=== PATIENT | female | born 1970 | race Caucasian/White ===

== ENCOUNTER → 2023-03-25 12:36 | Outpatient (REF) | payer BC, SELFPAY ==
[2023-03-25 14:05] LABS: APTT 26.9 Sec (23.4-35.0); PT 13.4 Sec (11.4-14.6)
== END ==
LOC: SDSPAT 12:36
PROVIDERS: ATTENDING PHYSICIAN Internal Medicine Critical Care Medicine; OTHER PHYSICIAN Internal Medicine Hematology & Oncology
DX: R91.8 Other nonspecific abnormal finding of lung field (principal)
CPT/HCPCS: 36415; 85610; 85730; 93005

== ENCOUNTER → 2023-04-16 09:35 | Outpatient (REF) | payer BC, SELFPAY ==
[2023-04-16 09:59] VITALS: BP 144/94; BP_SYST 88
[2023-04-16 11:34] VITALS: BP 124/80; BP_SYST 94
[2023-04-16 12:03] VITALS: BP 129/78
== END ==
LOC: RADI 09:35
PROVIDERS: ATTENDING PHYSICIAN Internal Medicine Hematology & Oncology
DX: C50.412 Malignant neoplasm of upper-outer quadrant of left female breast (principal); Z85.3 Personal history of malignant neoplasm of breast
CPT/HCPCS: 88305; 32408; 88333; 88341; 88342; 88360; 99152

== ENCOUNTER 2023-05-16 18:44 | Inpatient (IN) | payer BC, SELFPAY ==
[2023-05-16 12:58] VITALS: BP 118/73
--- NOTE | 2023-05-16 13:38 | ED.GENMED ---
History of Present Illness
General
Chief Complaint: Weakness
Source: patient
Exam Limitations: none
Time Seen by Provider: 05/16/23 13:08
Travel History
Have you had any contact with someone who has COVID-19?: No
Do you have any symptoms of coronavirus? Fever > 100 degrees, chills, cough, shortness of breath, sore throat, loss of taste or smell, muscle aches, or headache?: No
History of Present Illness
History of Present Illness:
53-year-old female with history of breast cancer presents complaining of generalized fatigue that new redness to the left upper chest and pain to the left scapular area. She started new chemotherapy medication 2 weeks ago. Cancer was first
diagnosed several years ago. She had double mastectomy and subsequent implant placement. This was also years ago. Recent discovery of cancer came back on her chest wall. She had a biopsy performed about 2 months ago. No nausea vomiting. She
notes a low-grade fever she notes a slight cough.
Phy Exam
Physical Exam
Physical Exam:
General: Well-appearing female no acute respiratory distress
HEENT: Normocephalic atraumatic heart: Regular rate and rhythm no murmurs
Lungs: Clear to auscultation bilaterally no wheezing
Skin: Erythema and warmth noted to the left upper chest with underlying swelling. This overlies the implant on the left side as well
Extremities: No cyanosis
Course
Orders/Labs/Results
Orders:
Orders
05/16/23 13:25
CT Chest Pe Study Urgent
Comment:
Reason For Exam: left chest/scapular pain, history of CA
05/16/23 13:46
COVID-19 Antigen Urgent
Source: Nasal Swab
Complete Blood Count/With Diff Urgent
Comprehensive Metabolic Panel Urgent
Influenza A+B Rapid Molecular Urgent
OLGA Source: Nasal Swab
Specimen Description:
05/16/23 15:59
Vancomycin [Vancocin] 1,500 mg 0.9% Sodium Chloride [Nss] 20 ml 0.9% Sodium Chloride 250 ml [Nss] 250 ml IV NOW
Abnormal Lab Results
05/16/23
13:46
WBC 13.4 H 10^3/uL
(4.8-10.8)
RBC 3.67 L 10^6/uL
(4.20-5.40)
Hgb 10.6 L g/dL
(12.0-16.0)
Hct 31.3 L %
(37.0-47.0)
RDW 15.7 H %
(11.5-14.5)
Abs Immat Gran (auto) 0.8 H 10^3/uL
(0-0.05)
Absolute Neuts (auto) 9.8 H 10^3/uL
(1.4-6.5)
Absolute Monos (auto) 1.4 H 10^3/uL
(0.1-0.6)
Immature Gran % 6.3 H %
(0-0.5)
Lymphocytes % 8.9 L %
(20.5-51.1)
Monocytes % 10.5 H %
(1.7-9.3)
Sodium 130 L mmol/L
(135-145)
Creatinine 0.4 L mg/dL
(0.6-1.0)
Glucose 108 H mg/dl
(70-99)
05/16/23 13:46
05/16/23 13:46
Vital Signs
Initial and Last Documented VS:
Initial Vital Signs
Temp Pulse Resp BP Pulse Ox
100.1 F 116 16 118/73 99
05/16/23 12:58 05/16/23 12:58 05/16/23 12:58 05/16/23 12:58 05/16/23 12:58
Last Documented Vital Signs
Temp Pulse Resp BP Pulse Ox
100.1 F 103 15 118/73 97
05/16/23 12:58 05/16/23 14:15 05/16/23 14:15 05/16/23 12:58 05/16/23 14:15
MDM/Problems Addressed
Differential Diagnosis Includes:
Generalized fatigue redness to the chest wall. She has low-grade fever with cough. Check for COVID and flu. Concern for possible cellulitis versus underlying abscess versus implant infection. PE also on differential given radiation of pain to
scapula. Will check for COVID and flu. Labs pending. CT PE study pending
*Critical Care Note
Total Time (30-74mins, 75-104mins- exclusive of procedures): Not Applicable
Update Note
Update Note:
White blood cell count 13.4. CT scan of the chest was ordered which demonstrates the following
IMPRESSION:
1. No evidence of pulmonary embolism.
2. Interval increase in size of bilateral pulmonary nodules suspicious for progression of metastatic disease.
3. Continued interval increase in size of confluent soft tissue along the medial left chest wall adjacent to the left breast implant along with increased adjacent subcutaneous inflammation and overlying skin thickening. Differential includes
mastitis, inflammatory breast cancer, metastatic disease and breast implant associated anaplastic large cell lymphoma.
Given fever and elevated white blood cell count we will treat for infectious source. Discussed these findings with the patient's oncologist, Dr. Marx. She was in agreement with IV antibiotics. Will contact hospitalist further evaluation
ED Attending Note
-
Portions of this chart may have been created with voice recognition software.� Occasional wrong word or��sound alike� substitutions may have occurred due to the inherent limitations of voice recognition software.
Discharge Plan
Departure
Patient Disposition: Admit
Date of Disposition: 05/16/23
Time of Disposition: 16:08
Admit to: Med/Surg
Presentation/result/management discussed w/ accepting MD/DO: Hospitalist
Discharge Problem:
Cellulitis
Prescriptions:
No Action
calcium 600 mg Capsule
600 mg PO DAILY
duloxetine [Cymbalta] 60 mg Capsule,Delayed Release(Dr/Ec)
30 mg PO 1300
cholecalciferol (vitamin D3) [Vitamin D3] 25 mcg (1,000 unit) Tablet
25 mcg PO DAILY
rizatriptan 5 mg Tablet,Disintegrating
5 mg PO ONCE
pregabalin [Lyrica] 50 mg Capsule
50 mg PO BID
Referrals:
NOEMI PETERSON MD [Family Provider] -
Interventions
Interventions:
*Risk Screen - Suicide Last Done: 05/16/23 12:58
*General Assessment Last Done: 05/16/23 12:58
*Neglect/Abuse Screening Last Done: 05/16/23 12:58
ED- Fall Risk Assessment Last Done: 05/16/23 14:09
ED- Cardiac Assessment Last Done: 05/16/23 14:09
ED- Neurological Assessment Last Done: 05/16/23 14:09
ED- Pulmonary Assessment Last Done: 05/16/23 14:09
[2023-05-16 14:01] LABS: % Basophils 0.7 % (0-2); % Eosinophils 0.6 % (0-6); % Immature Granulocytes 6.3 % (0-0.5); % Lymphocytes 8.9 % (20.5-51.1); % Monocytes 10.5 % (1.7-9.3); Absolute Basophils 0.1 10^3/uL (0-0.2); Absolute Eosinophils 0.1 10^3/uL (0-0.7); Absolute Immature Granulocytes 0.8 10^3/uL (0-0.05); Absolute Lymphocytes 1.2 10^3/uL (1.2-3.4); Absolute Monocytes 1.4 10^3/uL (0.1-0.6); Absolute Neutrophils 9.8 10^3/uL (1.4-6.5); Hematocrit 31.3 % (37.0-47.0); Hemoglobin 10.6 g/dL (12.0-16.0); Mean Corp Hgb Conc. 33.9 g/dL (33.0-37.0); Mean Corpuscular Hgb 28.9 pg (27.0-31.0); Mean Corpuscular Volume 85.3 fL (81.0-99.0); Mean Platelet Volume 9.9 fL (7.4-10.4); Nucleated Red Blood Cells % 0 %; Platelet Count 154 10^3/uL (130-400); Red Blood Cell Count 3.67 10^6/uL (4.20-5.40); Red Cell Dist. Width 15.7 % (11.5-14.5); White Blood Cell Count 13.4 10^3/uL (4.8-10.8)
[2023-05-16 14:09] VITALS: BMI 29.1
[2023-05-16 14:14] LABS: COVID-19 Antigen Negative (Negative)
[2023-05-16 14:18] LABS: ALT (SGPT) 13 U/L (0-35); AST (SGOT) 19 U/L (14-36); Alkaline Phosphatase 113 U/L (38-126); Blood Urea Nitrogen 7 mg/dl (7-17); Calcium 8.9 mg/dl (8.4-10.2); Carbon Dioxide 26 mmol/L (22-30); Chloride 100 mmol/L (98-107); Estimated Creatinine Clearance 114 ml/min; Glucose 108 mg/dl (70-99); Potassium 3.8 mmol/L (3.5-5.1); Sodium 130 mmol/L (135-145); Total Bilirubin 0.5 mg/dl (0.2-1.3); Total Protein 6.7 g/dl (6.3-8.2); eGFR > 60.00
[2023-05-16 16:28] VITALS: BP 114/69
[2023-05-16] MEDS: VANCOCIN 540 MG IV (16:48)
--- NOTE | 2023-05-16 17:38 | HPS.HSE ---
Family Physician
-
Family Physician: NOEMI PETERSON MD
Chief Complaint
-
chest wall swelling and redness
History of Present Illness
53-year-old female past medical history of triple negative breast cancer left breast diagnosed in 2014 with metastases to hip and lung status post double mastectomy and subsequent implant placement, recurrence in 2018 with subsequent neuropathy and
weakness of the left upper extremity, recent lung nodule biopsy 2 months ago presenting with redness and swelling of the left upper chest wall and scapular area over the past day. Did have some chills. Denies any fever.
She states that 6 months ago she was found to have involvement of the cancer within the chest wall. At that time she had CT scan of the chest which showed increasing pulmonary nodules she subsequently had lung biopsy a month ago which was
inconclusive for metastatic disease. She also had MRI of the left upper extremity which did not find any etiology for the left upper extremity weakness, pain and muscle atrophy/nerve damage
Patient currently on chemotherapy which she last received 2 weeks ago. She follows Dr. Marx as her oncologist.
The redness and swelling and pain started 1 day ago.
She did have some mild cough over the past several days. She did have some nosebleeding after recent chemotherapy which is since resolved. Denies any significant nausea or vomiting or abdominal pain or diarrhea at this time.
Medical History
Past Medical History
Past Medical History: Reports Other ( triple negative breast cancer diagnosed in 2014 with metastases to hip and lung status post double mastectomy and subsequent implant placement, recurrence in 2018 with subsequent neuropathy and weakness of the
left upper extremity, recent lung nodule biopsy 2 months ago)
Past Surgical History: Reports None
Social History
Tobacco: Former Smoker
Alcohol: Occasional
Drug: None
Family History
Family History: Not pertinent
Allergies / Home Medications
Allergies reflects when Allergies were last updated in [employer].
Home Medications with original date entered in [employer]
Allergy/Medication List:
Allergies
Allergy/AdvReac Type Severity Reaction Status Date / Time
No Known Allergies Allergy Verified 05/16/23 12:57
Home Medications
cholecalciferol (vitamin D3) 25 mcg (1,000 unit) tablet (Vitamin D3) 25 mcg PO DAILY 03/26/23
duloxetine 60 mg capsule,delayed release (Cymbalta) 60 mg PO DAILY@1230 03/26/23
pregabalin 50 mg capsule (Lyrica) 100 mg PO HS 04/16/23
acetaminophen 500 mg tablet (Tylenol Extra Strength) 1,000 mg PO QIDPRN PRN mild pain 05/16/23
calcium carbonate 500 mg calcium (1,250 mg) tablet 500 mg PO DAILY 05/16/23
ondansetron 4 mg disintegrating tablet 4 mg PO Q6HPRN PRN nasuea from chemo 05/16/23
sacituzumab govitecan-hziy 180 mg intravenous solution (Trodelvy) 0 mg IV UD 05/16/23
Review of Systems
-
History Source: Patient
A 12 point ROS was completed and negative except as noted: Yes
Constitutional: Reports No Symptoms
EENT: Reports No Symptoms
Respiratory: Reports No Symptoms
Cardiac: Reports No Symptoms
Abdomen/GI: Reports No Symptoms
: Reports No Symptoms
Musculoskeletal: Reports No Symptoms
Skin: Reports See HPI
Neurological: Reports No Symptoms
Endocrine: Reports No Symptoms
Hematologic/Lymphatic: Reports No Symptoms
Psych: Reports No Symptoms
Physical Exam
Vital Signs
Vital Signs
Temp Pulse Resp BP Pulse Ox
100.1 F 103 15 118/73 97
05/16/23 12:58 05/16/23 14:15 05/16/23 14:15 05/16/23 12:58 05/16/23 14:15
Physical Exam
General: Well Developed, Well Nourished and No Apparent Distress
HEENT: NormoCephalic, Moist mucous membranes and Atraumatic
Respiratory: Clear
Cardiac: S1/S2 and Regular Rhythm; No Murmur or Rub
GI: Soft, Non Tender, Non Distended and Normal Bowel Sounds; No Organomegaly
Rectal: Deferred by Provider
Musculoskeletal: No Clubbing, No Cyanosis and No Edema
Skin: Other (left upper chest wall ); No Rash
Neuro: Nonfocal/grossly intact
Laboratory Results
-
05/16/23 13:46
05/16/23 13:46
Laboratory Results
Total Bilirubin 0.5 mg/dl (0.2-1.3) 05/16/23 13:46
AST 19 U/L (14-36) 05/16/23 13:46
ALT 13 U/L (0-35) 05/16/23 13:46
Alkaline Phosphatase 113 U/L (38-126) 05/16/23 13:46
Data Reviewed
-
Lab Data: Labs Reviewed by me
Old Records: Reviewed
Impression/Plan
-
IMPRESSION:
PLAN:
# Recurrence of breast cancer of chest wall/mastitis
currently on chemotherapy
-Vancomycin
-Oncology consulted
# History of breast cancer status post double mastectomy and subsequent implant placement with metastases to hip and lung
-Currently on chemotherapy
-Status post radiation to right hip
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
-Continue Tylenol, duloxetine, pregabalin
Former smoker
Full code
DVT prophylaxis�heparin
Regular diet
[2023-05-16] MEDS: BENADRYL 25 MG IV (18:10)
[2023-05-16 19:26] VITALS: BP 122/70; BMI 28.1
--- NOTE | 2023-05-16 19:33 | PHA.VAN.IN ---
Assessment
- Assessment
Renal Function: Unknown baseline
Concomitant Antimicrobials: NONE
- Previous Dosing Experience
Previous Regimen: NONE
AUC Dosing Plan
- Dosing Variables
Dosing Weight (kg): 81.7
Dosing CrCl (ml/min): 100
Vd coefficient (L/kg): 0.7
- Empiric Dosing
Initial / Loading Dose: 2gm
Maintenance Regimen: 1GM IV Q12H
Estimated AUC (mcg*h/mL): 418
Estimated Peak (mcg*h/mL): 26.9
Estimated Trough (mcg/ml): 10.3
Estimated Half Life (H): 7.9
Pharmacokinetics Vancomycin I
- -
Patient Age: 53
Patient Sex: Female
Vancomycin Day #: 1
Indication: Skin And Soft Tissue (BREAST CA/CHEST WALL MASTITIS)
Requesting Provider: EDDIE
Height / Weight:
Height 5 ft 6 in
Actual Weight 78.925 kg
Pertinent Past Medical History: BREAST CA WITH METS
- Vital Signs / Lab Results
Temp Pulse Resp BP Pulse Ox
99.2 F 102 18 122/70 99
05/16/23 19:26 05/16/23 19:26 05/16/23 19:26 05/16/23 19:26 05/16/23 19:26
Lab Results - Hematology
05/16/23
13:46
WBC 13.4 H
Lab Results - Chemistry
05/16/23
13:46
BUN 7
Creatinine 0.4 L
Estimated Creat Clear 114
Albumin 4.0
Microbiology Results
05/16/23 13:46 Influenza Types A & B (NADIRA) - Final
Nasal Swab Negative for Influenza A & B, NAAT
Negative results must be combined with clinical observations
and patient history.
Nucleic Acid Amplification test (NAAT)performed on the
[employer] platform.
[2023-05-16] MEDS: HEPARIN 5000 UNITS SC (20:31)
[2023-05-16] MEDS: LYRICA 100 MG PO (21:47)
[2023-05-16 23:40] VITALS: BP 95/62
[2023-05-17 01:00] VITALS: BP 127/72
[2023-05-17] MEDS: BENADRYL 25 MG IV ×3 (05:11→23:54)
[2023-05-17] MEDS: VANCOCIN 200 IV (05:12)
[2023-05-17 06:17] LABS: % Basophils 0.3 % (0-2); % Eosinophils 0.9 % (0-6); % Immature Granulocytes 5.9 % (0-0.5); % Lymphocytes 15.6 % (20.5-51.1); % Monocytes 9.7 % (1.7-9.3); % Neutrophils 67.6 % (42.2-75.2); Absolute Eosinophils 0.1 10^3/uL (0-0.7); Absolute Immature Granulocytes 0.7 10^3/uL (0-0.05); Absolute Lymphocytes 1.9 10^3/uL (1.2-3.4); Absolute Monocytes 1.2 10^3/uL (0.1-0.6); Absolute Neutrophils 8.1 10^3/uL (1.4-6.5); Hematocrit 30.5 % (37.0-47.0); Hemoglobin 10.2 g/dL (12.0-16.0); Mean Corp Hgb Conc. 33.4 g/dL (33.0-37.0); Mean Corpuscular Hgb 28.7 pg (27.0-31.0); Mean Corpuscular Volume 85.7 fL (81.0-99.0); Mean Platelet Volume 9.6 fL (7.4-10.4); Nucleated Red Blood Cells % 0 %; Platelet Count 150 10^3/uL (130-400); Red Blood Cell Count 3.56 10^6/uL (4.20-5.40); Red Cell Dist. Width 15.5 % (11.5-14.5)
[2023-05-17 06:48] LABS: ALT (SGPT) 12 U/L (0-35); AST (SGOT) 21 U/L (14-36); Albumin 3.6 g/dl (3.5-5.0); Alkaline Phosphatase 120 U/L (38-126); Blood Urea Nitrogen 7 mg/dl (7-17); Calcium 8.5 mg/dl (8.4-10.2); Carbon Dioxide 25 mmol/L (22-30); Chloride 101 mmol/L (98-107); Estimated Creatinine Clearance 112 ml/min; Glucose 118 mg/dl (70-99); Potassium 3.5 mmol/L (3.5-5.1); Sodium 132 mmol/L (135-145); Total Bilirubin 0.5 mg/dl (0.2-1.3); Total Protein 6.3 g/dl (6.3-8.2); eGFR > 60.00
--- NOTE | 2023-05-17 07:24 | PTCARENOTE ---
Patient reports having reaction to vanco in ED, itching and redness. CASE PLANNER sage made aware of pending vanco order. PRN benadryl ordered to be given prior to vanco administration and at a slower rate. Vanco given as ordered with no c/o itching, no
redness observed.
[2023-05-17] MEDS: VITAMIN D3 (cholecalciferol) 25 MCG PO (08:22)
[2023-05-17] MEDS: OSCAL CAL 500 500 MG PO (08:22)
[2023-05-17] MEDS: HEPARIN 5000 UNITS SC ×2 (08:22→21:37)
--- NOTE | 2023-05-17 08:32 | CON.ONC ---
Addendum entered and electronically signed by Bobo Barcenas MD 05/17/23 12:37:
Oncology Addendum:
Patient seen and evaluated and agree w/ STORY TELLER note and plan as outlined
-metastatic triple negative breast cancer - currently being tx w/ Sacituzumab
-left chest wall cellulitis - improved w/ antibiotics
-cont vancomycin
-follow CBC
-cont supportive care
Will continue to follow with you.
Original Note:
Impression
Impression
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
Currently on Sacituzumab (Trodelvy) last received 05/06/23 w/ GCS-F support 05/07/23
Recurrence of breast cancer to left chest wall
Acute left chest wall mastitis
Acute leukocytosis, neutrophilia
Low grade fevers
Chronic LUE nerve pain
Plan
Plan
3 WBC 12.0
s/p GCS-F (Udenyca) 05/07/23
Monitor CBC w/ diff daily
Hgb stable, platelets at baseline
Continue IV antibiotics: Vancomycin
Monitor fevers
Supportive care
Monitor chest wall site, erythema/edema improving
[place] office has been notified of patient's hospital admission and her treatment schedule has been adjusted. Will reschedule accordingly based on discharge. We will follow along.
Patient History
History of Present Illness
Laurie Morales is a 53 year old female known to Dr. Marx at [place] for extensive history of triple negative breast cancer currently on chemotherapy. She is receiving Sacituzumab (Trodelvy); last administered on 05/06/23 with GCS-F (Udenyca) on
05/07/23. This was her first treatment on this regimen.
She presented to the ER yesterday, , with reports of redness/swelling of left upper chest wall/scapular area x24-48 hours associated with chills, a low grade fever, and mild cough. At the end of March, she underwent biopsy of recurrent left
chest wall mass which was positive for invasive carcinoma of breast. This site was previously radiated in the past. She also underwent biopsy of REGINALDO nodule mid-March was inconclusive with rare atypical cells.
She has been admitted at this time for further evaluation and treatment of breast cancer recurrence/acute mastitis with IV antibiotics.
Past-Medical/Surgical History
Metastatic triple-neg breast cancer to bone, chest wall (dx 2014, s/p double mastectomy, recurrence 2018, XRT to right hip, sacrum, chest wall)
Recurrence of disease to left chest wall s/p XRT (2017, 2023)
Vitamin D deficiency
Neuropathy
Brachial plexus injury
Chronic LUE nerve damage
Former smoker
Menorrhagia
Mild thrombocytopenia (baseline 150-180s)
Iron deficiency (IV iron 2014)
Uterine ablation
COVID-19 infection
Patient Medication
Medication Instructions Recorded Confirmed Last Taken Type
cholecalciferol (vitamin D3) 25 25 mcg PO DAILY 03/26/23 05/16/23 05/16/23 History
mcg (1,000 unit) tablet (Vitamin
D3)
duloxetine 60 mg capsule,delayed 60 mg PO DAILY@1230 03/26/23 05/16/23 05/15/23 History
release (Cymbalta)
pregabalin 50 mg capsule (Lyrica) 100 mg PO HS 04/16/23 05/16/23 05/15/23 History
acetaminophen 500 mg tablet 1,000 mg PO QIDPRN PRN mild pain 05/16/23 05/16/23 05/16/23 History
(Tylenol Extra Strength)
calcium carbonate 500 mg calcium 500 mg PO DAILY 05/16/23 05/16/23 05/16/23 History
(1,250 mg) tablet
ondansetron 4 mg disintegrating 4 mg PO Q6HPRN PRN nasuea from 05/16/23 05/16/23 Unknown History
tablet chemo
sacituzumab govitecan-hziy 180 mg 0 mg IV UD 05/16/23 05/16/23 Unknown History
intravenous solution (Trodelvy)
Active Medications
Generic Name Dose Route Start Last Admin
Trade Name Freq PRN Reason Stop Dose Admin
Acetaminophen 1,000 mg 05/16/23 18:59
Acetaminophen 500 Mg Tablet PO 06/13/23 18:58
QIDPRN PRN
mild pain
Calcium Carbonate 500 mg 05/17/23 08:00 05/17/23 08:22
Calcium Carbonate 500 Mg Tablet PO 06/14/23 07:59 500 mg
DAILY JIGAR Administration
Cholecalciferol 25 mcg 05/17/23 08:00 05/17/23 08:22
Cholecalciferol (Vitamin D3) 25 Mcg Tablet (1,000 Units) PO 06/14/23 07:59 25 mcg
DAILY JIGAR Administration
Diphenhydramine HCl 25 mg 05/16/23 20:54 05/17/23 05:11
Diphenhydramine 50 Mg/Ml 1 Ml Vial IV 06/13/23 20:53 25 mg
Q6HPRN PRN Administration
itching
Duloxetine HCl 60 mg 05/17/23 12:30
Duloxetine Delayed Release 60 Mg Capsule PO 06/14/23 12:29
DAILY@1230 JIGAR
Heparin Sodium 5,000 units 05/16/23 20:00 05/17/23 08:22
Heparin 5,000 Units/Ml 1 Ml Vial SC 06/13/23 19:59 5,000 units
Q12 JIGAR Administration
Vancomycin HCl 1 gram in 200 mls @ 100 mls/hr 05/17/23 06:00 05/17/23 05:12
Vancocin IV 200 mls
Q12H JIGAR Administration
Protocol
Ondansetron HCl 4 mg 02/29/24 18:59
Ondansetron 4 Mg/2 Ml Vial IV 06/13/23 18:58
Q6HPRN PRN
nausea and vomiting
Ondansetron HCl 4 mg 05/16/23 18:59
Ondansetron 4 Mg (Orally-Disintegrating) Tablet PO 06/13/23 18:58
Q6HPRN PRN
nasuea from chemo
Pregabalin 100 mg 05/16/23 22:00 05/16/23 21:47
Pregabalin 100 Mg Capsule PO 06/13/23 21:59 100 mg
HS JIGAR Administration
Sodium Chloride 0 flush 05/16/23 20:00
Sodium Chloride 0.9% (Flush) Syringe IV 06/13/23 19:59
PER PROTOCOL JIGAR
Review of Systems
-
History Source: Patient, Family, Coordinated Provider and Records
Constitutional: Reports No Symptoms
EENT: Reports No Symptoms
Respiratory: Reports No Symptoms
Cardiac: Reports No Symptoms
GI: Reports No Symptoms
Breast: Reports Skin Changes
: Reports No Symptoms
Musculoskeletal: Reports No Symptoms
Skin: Reports Rash
Neuro: Reports No Symptoms
Endocrine: Reports No Symptoms
Hematologic/Lymphatic: Reports No Symptoms
Allergy / Immunology: Reports No Symptoms
Psych: Reports No Symptoms
Physical Exam
-
patient is resting in bed. family at bedside. they report the chest wall rash and edema has improved after receiving IV antibiotics. she denies pain.
General: Well Developed, Well Nourished, Comfortable, Fever (low grade temp 100.3), Conversant and Appears Chronically Ill; Negative Respiratory Distress
HEENT: Negative Jaundice
Cardiology: S1 and S2 (tachycardia)
Pulmonary: Other (diminished, coarse)
GI: Normal Bowel Sounds
Genito-Urinary: Deferred by me
Musculoskeletal: No Edema
Extremities: Pulses Present
Neurology: Non Focal
Skin: Warm, Dry, Rash (left chest wall erythema), No Ecchymosis and Other (pallor)
Psych: Calm and Other (flat affect)
Labs
Lab Results
WBC 12.0 10^3/uL (4.8-10.8) H 05/17/23 05:56
RBC 3.56 10^6/uL (4.20-5.40) L 05/17/23 05:56
Hgb 10.2 g/dL (12.0-16.0) L 05/17/23 05:56
Hct 30.5 % (37.0-47.0) L 05/17/23 05:56
MCV 85.7 fL (81.0-99.0) 05/17/23 05:56
MCH 28.7 pg (27.0-31.0) 05/17/23 05:56
MCHC 33.4 g/dL (33.0-37.0) 05/17/23 05:56
RDW 15.5 % (11.5-14.5) H 05/17/23 05:56
Plt Count 150 10^3/uL (130-400) 05/17/23 05:56
MPV 9.6 fL (7.4-10.4) 05/17/23 05:56
Abs Immat Gran (auto) 0.7 10^3/uL (0-0.05) H 05/17/23 05:56
Absolute Neuts (auto) 8.1 10^3/uL (1.4-6.5) H 05/17/23 05:56
Absolute Lymphs (auto) 1.9 10^3/uL (1.2-3.4) 05/17/23 05:56
Absolute Monos (auto) 1.2 10^3/uL (0.1-0.6) H 05/17/23 05:56
Absolute Eos (auto) 0.1 10^3/uL (0-0.7) 05/17/23 05:56
Absolute Basos (auto) 0.0 10^3/uL (0-0.2) 05/17/23 05:56
Immature Gran % 5.9 % (0-0.5) H 05/17/23 05:56
Neutrophils % 67.6 % (42.2-75.2) 05/17/23 05:56
Lymphocytes % 15.6 % (20.5-51.1) L 05/17/23 05:56
Monocytes % 9.7 % (1.7-9.3) H 05/17/23 05:56
Eosinophils % 0.9 % (0-6) 05/17/23 05:56
Basophils % 0.3 % (0-2) 05/17/23 05:56
Creatinine 0.4 mg/dL (0.6-1.0) L 05/17/23 05:56
Vital Signs
Vital Signs
Temp Pulse Resp BP Pulse Ox
99.8 F 105 18 127/72 96
05/16/23 23:40 05/17/23 01:00 05/16/23 23:40 05/17/23 01:00 05/16/23 23:40
05/16/[address]: No evidence of pulmonary embolism. Interval increase in size of bilateral pulmonary nodules suspicious for progression of metastatic disease. Continued interval increase in size of confluent soft tissue along the medial left chest
wall adjacent to the left breast implant along with increased adjacent subcutaneous inflammation and overlying skin thickening. Differential includes mastitis, inflammatory breast cancer, metastatic disease and breast implant associated anaplastic
large cell lymphoma.
[2023-05-17 08:40] VITALS: BP 106/68
--- NOTE | 2023-05-17 11:07 | PHA.VAN.FU ---
Vancomycin Assessment / Plan
- Assessment
Renal Function: Stable
WBC's are: Trending Down
- Dosing Plan
Continue: vancomycin 1000 mg q12h - 1st dose 05/16 0600
- Monitoring Plan
Peak Level: 05/18/23 2030 - after 4th main. dose
Trough Level: 05/19/23 0530
- Follow Up
Pharmacy will continue to follow.
Vancomycin Follow UP
- -
Patient Age: 53
Patient Sex: Female
Vancomycin Day #: 2
Indication: Skin And Soft Tissue (BREAST CA/CHEST WALL MASTITIS)
Requesting Provider: EDDIE
Height / Weight:
Height 5 ft 6 in
Actual Weight 78.925 kg
Pertinent Past Medical History: BREAST CA WITH METS (TNBC on Sacituzumab w/ GCS-F support)
- Vital Signs / Lab Results
Temp Pulse Resp BP Pulse Ox
100.3 F 90 17 106/68 96
05/17/23 08:40 05/17/23 08:40 05/17/23 08:40 05/17/23 08:40 05/17/23 08:40
Lab Results - Hematology
05/16/23 05/17/23
13:46 05:56
WBC 13.4 H 12.0 H
Lab Results - Chemistry
05/16/23 05/17/23
13:46 05:56
BUN 7 7
Creatinine 0.4 L 0.4 L
Estimated Creat Clear 114 112
Albumin 4.0 3.6
Microbiology Results
05/16/23 13:46 Influenza Types A & B (NADIRA) - Final
Nasal Swab Negative for Influenza A & B, NAAT
Negative results must be combined with clinical observations
and patient history.
Nucleic Acid Amplification test (NAAT)performed on the
[employer] platform.
[2023-05-17] MEDS: CYMBALTA DELAYED RELEASE 60 MG PO (11:54)
--- NOTE | 2023-05-17 13:46 | W.PN.HOSP.TC ---
Today's Communication/Plan
-
cont iv abx
ivf
id and onc on board
Assessment / Plan
Assessment / Plan
Physical Exam
General: Well Developed, Well Nourished and No Apparent Distress
HEENT: NormoCephalic, Moist mucous membranes and Atraumatic
Respiratory: Clear
Cardiac: S1/S2 and Regular Rhythm; No Murmur or Rub
GI: Soft, Non Tender, Non Distended and Normal Bowel Sounds; No Organomegaly
Rectal: Deferred by Provider
Musculoskeletal: No Clubbing, No Cyanosis and No Edema
Skin: Other (left upper chest wall erythema, mild tenderness); No Rash
Neuro: Nonfocal/grossly intact
PLAN:
#Sepsis
# Chest Wall Cellulitis
-marked improvement on abx
-currently on chemotherapy
-Vancomycin
-Oncology consulted
-ID consulted
# History of breast cancer status post double mastectomy and subsequent implant placement with metastases to hip and lung
-Currently on chemotherapy
-Status post radiation to right hip
-Onc consulted
#Hyponatremia
-mild
-monitor with resuscitation
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
-Continue Tylenol, duloxetine, pregabalin
Former smoker
Full code
DVT prophylaxis�heparin
Regular diet
Anticipated Discharge: 24 - 48 hours
Subjective/Interval History
-
Date of Service: May 17, 2023
Marked improvement in cellulitis
Objective Data
-
Labs:
Laboratory Results
05/17/23
05:56
WBC 12.0 H
Hgb 10.2 L
Hct 30.5 L
Plt Count 150
Sodium 132 L
Potassium 3.5
Chloride 101
Carbon Dioxide 25
BUN 7
Creatinine 0.4 L
Glucose 118 H
Calcium 8.5
Total Bilirubin 0.5
AST 21
ALT 12
Alkaline Phosphatase 120
Vital Signs:
Vital Signs
Temp Pulse Resp BP Pulse Ox
100.3 F 90 17 106/68 96
05/17/23 08:40 05/17/23 08:40 05/17/23 08:40 05/17/23 08:40 05/17/23 08:40
I&O
05/16/23 05/17/23 05/18/23
06:59 06:59 06:59
Intake Total 680 / 680
Balance 680 / 680
Review of Systems
-
History Source: Patient
All other systems: Not reviewed unless documented
Data Reviewed
-
Diagnostic Radiology: Image personally visualized and interpreted and Report Reviewed by me
CT Scan: Image personally visualized and interpreted and Report Reviewed by me
Labs: Labs Reviewed by me
--- NOTE | 2023-05-17 13:59 | CON.ID ---
Consultation
-
Date/Time Consultation Requested: 05/17/2023, 1322
Date/Time Consultation Performed: 05/17/2023, 1400
Requesting Provider: Dr. Taye Francisco
Performing Provider: Dr. Abbey Carrera
Reason for Consultation: breast cellulitis
Chief Complaint / Past History
Chief Complaint
breast redness
History of Present Illness
53 year old female with left breast ca dx 2015 s/p bilateral mastectomy with maxillofacial surgeon reconstructions, subsequent metastatic disease to multiple sites including left chest wall, currently on treatment. Has left brachial plexus injury, LUE
neuropathy, lymphedema. 2 to 3 days ago, she noted induration, redness, warmth, and pain over left upper chest towards shoulder. Had low grade fever at home. She came to the hospital yesterday and started on IV Vancomycin, with associated Sharon
syndrome. Today, she reports the left chest has improved. Per daughter, the induration was the size of a fist, now decreased. Pt denies trauma or injury.
Past History
Additional Past Medical History:
Triple negative left breast CA dx 2014 s/p b/l mastectomy with expanders reconstruction (01/2015), chemo/XRT completed 2015, with left chest wall and R sacrum mets s/p palliative XRT 2017 and tx; 2019 mets to liver, L pubic bone; 03/08 Left chest
wall mass, pulm masses, 04/16/23 chest wall mass biopsy +invasive breast CA, currently on immunetherapy
LUE Neuropathy
Brachial plexus injury
Chronic LUE nerve damage
Allergy History:
No Known Allergies Allergy (Verified 05/16/23 12:57)
Medications Reviewed: Yes
Current Antibiotics:
Vancomycin d2
Social History
Tobacco: Former Smoker
Alcohol: None
Drug: None
Personal:
Living: With Family
Employment: Employed (Works for [employer])
Family History
Family History: Not Pertinent
Review of Systems
Review of Systems
General: Negative Chills or Change in Appetite
HEENT: Negative Sinus Problems, Headache or Pharyngitis
Respiratory: Negative Dyspnea or Cough
Gasteroenterology: Other (no diarrhea); Negative Nausea or Vomiting
Genital / Urological: Negative Dysuria or Flank Pain
All systems: All other systems were reviewed and were negative
Vital Signs
Temp Pulse Resp BP Pulse Ox
100.3 F 90 17 106/68 96
05/17/23 08:40 05/17/23 08:40 05/17/23 08:40 05/17/23 08:40 05/17/23 08:40
Physical Exam
Physical Exam
Constitutional: No Acute Distress and Comfortable
Eyes: No Conjunctival Hemorrhage and Sclera Anicteric
Cardiovascular: Regular Rate and S1/S2; Negative Peripheral Edema
Pulmonary: Clear
Gastrointestinal: Soft, Non Tender, Non Distended and Normal Bowel Sounds
Genito-Urinary: Negative CVA Tenderness
Extremities: Negative Edema
Skin: Other (left upper chest wall towards lateral side: + induration, minimal erythema/warmth, no fluctuance. )
Neurological: AO x 3
Lab / Diagnostic Study Results
05/17/23 05:56
05/17/23 05:56
Abs Immat Gran (auto) 0.7 10^3/uL (0-0.05) H 05/17/23 05:56
Absolute Neuts (auto) 8.1 10^3/uL (1.4-6.5) H 05/17/23 05:56
Absolute Lymphs (auto) 1.9 10^3/uL (1.2-3.4) 05/17/23 05:56
Absolute Monos (auto) 1.2 10^3/uL (0.1-0.6) H 05/17/23 05:56
Absolute Basos (auto) 0.0 10^3/uL (0-0.2) 05/17/23 05:56
Immature Gran % 5.9 % (0-0.5) H 05/17/23 05:56
Neutrophils % 67.6 % (42.2-75.2) 05/17/23 05:56
Lymphocytes % 15.6 % (20.5-51.1) L 05/17/23 05:56
Monocytes % 9.7 % (1.7-9.3) H 05/17/23 05:56
Eosinophils % 0.9 % (0-6) 05/17/23 05:56
Basophils % 0.3 % (0-2) 05/17/23 05:56
Microbiology Results
Micro:
05/16/23 13:46 Influenza Types A & B (NADIRA) - Final
Nasal Swab Negative for Influenza A & B, NAAT
Negative results must be combined with clinical observations
and patient history.
Nucleic Acid Amplification test (NAAT)performed on the
[employer] platform.
05/16/23 CT chest: Interval increase in size of bilateral pulmonary nodules suspicious for progression of metastatic disease. Continued interval increase in size of confluent soft tissue along the medial left chest wall adjacent to the left breast
implant along with increased adjacent subcutaneous inflammation and overlying skin thickening. Differential includes mastitis, inflammatory breast cancer, metastatic disease and breast implant associated anaplastic large cell lymphoma.
04/18/23 PET: Approximately 4 subcentimeter confluent hypermetabolic soft tissue attenuation/mass along the medial left chest wall situated between the inferomedial margin of the left clavicle and the anterior margin of the first and second ribs,
involving the medial pectoralis major and pectoralis minor muscles. Confluent soft tissue thickening extends inferiorly along the left anterior chest wall parasternal location, contiguous with with the posterior medial margin of the left breast
prosthesis. This could represent fluid adjacent to the breast implant, with diffuse nonfocal FDG activity initial and delayed SUV max of 2.1 and 1.8. Consider regional metastatic disease versus breast implant associated anaplastic large cell
lymphoma. There are multiple pulmonary nodules, as described, with associated variable FDG activity. Some of the lesions are too small to characterize by PET/CT. Other lesions are nonspecific, possible etiologies of infection/inflammation vs
neoplasm (primary versus secondary).
Assessment / Plan
# Lateral left upper chest wall cellulitis, improving
# Triple neg breast cancer with mets including to medial left chest wall, on new regimen Sacituzumab
# hx LUE brachial plexus injury with neuropathy, lymphedema
Plan
- Replace Vancomycin with cefazolin 2gIV q8.
-Follow clinically.
Care Review
Plan reviewed with: Physician (Dr. Francisco)
[2023-05-17] MEDS: LR 1000 IV (14:22)
[2023-05-17 15:20] VITALS: BP 106/64
[2023-05-17] MEDS: ANCEF 10 IV ×2 (16:31→23:54)
[2023-05-17] MEDS: LYRICA 100 MG PO (21:37)
[2023-05-17] MEDS: TYLENOL 1000 MG PO (21:40)
--- NOTE | 2023-05-17 22:42 | PTCARENOTE ---
Patient c/o new red raised rash to Left upper arm from axilla to hand. Patient states that she has not had rash to this site prior, only redness to face with administration of IV vanco yesterday that resolved at this time. Vanco DCd today and
changed to IV ancef -- patient is still getting premedicated with Benadryl prior to dosing, last dose Ancef at 16:31pm today. BERHANE Brown notified and examined patient -- Benadryl dosing changed from Q6P to Q4P and instructed to monitor patient
tonight and try increased Benadryl dosing if needed. Will continue to monitor.
[2023-05-17 23:30] VITALS: BP 99/59
--- NOTE | 2023-05-18 02:41 | W.PN.UPDATE ---
Update Note
Progress Note Update
Patient reports new rash to the left arm. Patient examined, inflammation and rash noted to extend from patient's left breast to axilla and to left posterior upper arm. Changed Benadryl IV 25mg from q6hr to q4hr prn. Continue to monitor.
[2023-05-18] MEDS: LR 1000 IV ×2 (04:47→16:39)
[2023-05-18 07:31] VITALS: BP 92/57
[2023-05-18 07:38] LABS: Hematocrit 27.3 % (37.0-47.0); Hemoglobin 9.4 g/dL (12.0-16.0); Mean Corp Hgb Conc. 34.4 g/dL (33.0-37.0); Mean Corpuscular Hgb 28.7 pg (27.0-31.0); Mean Corpuscular Volume 83.5 fL (81.0-99.0); Platelet Count 141 10^3/uL (130-400); Red Blood Cell Count 3.27 10^6/uL (4.20-5.40); Red Cell Dist. Width 15.4 % (11.5-14.5); White Blood Cell Count 11.6 10^3/uL (4.8-10.8)
[2023-05-18 08:03] LABS: ALT (SGPT) 18 U/L (0-35); AST (SGOT) 32 U/L (14-36); Albumin 3.3 g/dl (3.5-5.0); Alkaline Phosphatase 127 U/L (38-126); Blood Urea Nitrogen 5 mg/dl (7-17); Calcium 8.1 mg/dl (8.4-10.2); Carbon Dioxide 26 mmol/L (22-30); Chloride 100 mmol/L (98-107); Estimated Creatinine Clearance 112 ml/min; Glucose 93 mg/dl (70-99); Potassium 3.5 mmol/L (3.5-5.1); Sodium 131 mmol/L (135-145); Total Bilirubin 0.5 mg/dl (0.2-1.3); Total Protein 5.7 g/dl (6.3-8.2); eGFR > 60.00
[2023-05-18] MEDS: ANCEF 10 IV (08:50)
[2023-05-18] MEDS: VITAMIN D3 (cholecalciferol) 25 MCG PO (08:51)
[2023-05-18] MEDS: OSCAL CAL 500 500 MG PO (08:51)
[2023-05-18] MEDS: HEPARIN 5000 UNITS SC ×2 (08:52→19:58)
[2023-05-18] MEDS: TYLENOL 1000 MG PO ×2 (08:58→19:58)
[2023-05-18] MEDS: BENADRYL 25 MG IV (09:00)
--- NOTE | 2023-05-18 11:12 | W.PN.ID1 ---
Date of Service
Date of Service: May 18, 2023
Today's Communication
Resume Vancomycin and dc cefazolin.
Assessment / Plan
# Left upper chest wall erythema/induration/cellulitis worse with change of Vancomycin to cefazolin.
# Fever x 1 last night
# Leukocytosis trending down
# Triple neg breast cancer with mets including to medial left chest wall, on new regimen Sacituzumab
# hx LUE brachial plexus injury with neuropathy, lymphedema
Plan:
- Blood cx's x 2
- DC cefazolin and resume Vancomycin IV slow infusion and premed with Benadryl due to Sharon syndrome
-Follow temps.
-Follow clinically.
Chief Complaint
-: Cellulitis
Subjective / Review of Systems
Had fever last night. Cellulitis appear worse today.
Vital Signs / Physical Exam
Vital Signs
Vital Signs
Temp Pulse Resp BP Pulse Ox
98.7 F 92 16 92/57 96
05/18/23 07:31 05/18/23 07:31 05/18/23 07:31 05/18/23 07:31 05/18/23 07:31
Selected Entries
05/17/23
23:30
Temp 100.6 F H
Physical Exam
Constitutional: No Acute Distress
Eyes: Sclera Anicteric
Cardiovascular: Regular Rate and S1/S2
Gastrointestinal: Soft, Non Tender and Non Distended
Skin: Other (left chest wall erythema worse extending down; + warmth)
Neurological: AO x 3
Objective Data
Lab Data
Lab Results
05/18/23 06:26
05/18/23 06:26
Estimated Creat Clear 112 ml/min 05/18/23 06:26
Total Bilirubin 0.5 mg/dl (0.2-1.3) 05/18/23 06:26
AST 32 U/L (14-36) 05/18/23 06:26
ALT 18 U/L (0-35) 05/18/23 06:26
Alkaline Phosphatase 127 U/L (38-126) H 05/18/23 06:26
Most recent labs reviewed.
Micro Results:
05/16/23 13:46 Influenza Types A & B (NADIRA) - Final
Nasal Swab Negative for Influenza A & B, NAAT
Negative results must be combined with clinical observations
and patient history.
Nucleic Acid Amplification test (NAAT)performed on the
[employer] platform.
05/16/23 CT chest: Interval increase in size of bilateral pulmonary nodules suspicious for progression of metastatic disease. Continued interval increase in size of confluent soft tissue along the medial left chest wall adjacent to the left breast
implant along with increased adjacent subcutaneous inflammation and overlying skin thickening. Differential includes mastitis, inflammatory breast cancer, metastatic disease and breast implant associated anaplastic large cell lymphoma.
04/18/23 PET: Approximately 4 subcentimeter confluent hypermetabolic soft tissue attenuation/mass along the medial left chest wall situated between the inferomedial margin of the left clavicle and the anterior margin of the first and second ribs,
involving the medial pectoralis major and pectoralis minor muscles. Confluent soft tissue thickening extends inferiorly along the left anterior chest wall parasternal location, contiguous with with the posterior medial margin of the left breast
prosthesis. This could represent fluid adjacent to the breast implant, with diffuse nonfocal FDG activity initial and delayed SUV max of 2.1 and 1.8. Consider regional metastatic disease versus breast implant associated anaplastic large cell
lymphoma. There are multiple pulmonary nodules, as described, with associated variable FDG activity. Some of the lesions are too small to characterize by PET/CT. Other lesions are nonspecific, possible etiologies of infection/inflammation vs
neoplasm (primary versus secondary).
--- NOTE | 2023-05-18 12:05 | PHA.VAN.IN ---
Assessment
- Assessment
Renal Function: Appears similar to baseline
Maximum Temperature: 100.6
Minimum Temperature: 98.7
AUC Dosing Plan
- Dosing Variables
Dosing Weight (kg): 79
Dosing CrCl (ml/min): 112
Vd coefficient (L/kg): 0.7
- Empiric Dosing
Initial / Loading Dose: Vanc 2000mg--administration pending
Maintenance Regimen: Vanc 1000mg IV q8H beginning at 2200
Estimated AUC (mcg*h/mL): 584
Estimated Peak (mcg*h/mL): 33.4
Estimated Trough (mcg/ml): 16.9
Estimated Half Life (H): 7.1
- Monitoring
No levels ordered at this time: Consider levels after 05/18 2200 dose
Pharmacokinetics Vancomycin I
- -
Patient Age: 53
Patient Sex: Female
Vancomycin Day #: 1
Indication: Skin And Soft Tissue
Requesting Provider: Deandre
Pertinent Antimicrobial Allergies:
Sharon syndrome with Vancomycin. Ordering physician requests diphenhydramine 50mg po prior to each Vanco dose and infusion rate slowed.
Height / Weight:
Height 5 ft 6 in
Actual Weight 78.925 kg
IBW in k.3
Adjusted BW in k.2
Pertinent Past Medical History: BREAST CA WITH METS (TNBC on Sacituzumab w/ GCS-F support); Failed cefaz
- Vital Signs / Lab Results
Temp Pulse Resp BP Pulse Ox
98.7 F 92 16 92/57 96
05/18/23 07:31 05/18/23 07:31 05/18/23 07:31 05/18/23 07:31 05/18/23 07:31
Lab Results - Hematology
05/16/23 05/17/23 05/18/23
13:46 05:56 06:26
WBC 13.4 H 12.0 H 11.6 H
Lab Results - Chemistry
05/16/23 05/17/23 05/18/23
13:46 05:56 06:26
BUN 7 7 5 L
Creatinine 0.4 L 0.4 L 0.4 L
Estimated Creat Clear 114 112 112
Albumin 4.0 3.6 3.3 L
Microbiology Results
05/16/23 13:46 Influenza Types A & B (NADIRA) - Final
Nasal Swab Negative for Influenza A & B, NAAT
Negative results must be combined with clinical observations
and patient history.
Nucleic Acid Amplification test (NAAT)performed on the
[employer] platform.
[2023-05-18] MEDS: VANCOCIN 540 MG IV (12:36)
[2023-05-18] MEDS: CYMBALTA DELAYED RELEASE 60 MG PO (12:38)
[2023-05-18] MEDS: BENADRYL 50 MG PO ×2 (12:38→21:22)
--- NOTE | 2023-05-18 13:48 | W.PN.HOSP.TC ---
Today's Communication/Plan
-
f/u blood cultures
switch back to vancomycin
Assessment / Plan
Assessment / Plan
Physical Exam
General: Well Developed, Well Nourished and No Apparent Distress
HEENT: NormoCephalic, Moist mucous membranes and Atraumatic
Respiratory: Clear
Cardiac: S1/S2 and Regular Rhythm; No Murmur or Rub
GI: Soft, Non Tender, Non Distended and Normal Bowel Sounds; No Organomegaly
Rectal: Deferred by Provider
Musculoskeletal: No Clubbing, No Cyanosis and No Edema
Skin: Other (left upper chest wall erythema, mild tenderness slightly worse today); No Rash
Neuro: Nonfocal/grossly intact
PLAN:
#Sepsis
# Chest Wall Cellulitis
Worse with cefazolin, switch back to vancomycin with Benadryl due to 'red man' syndrome
-ID consulted
�Follow-up cultures
� Follow-up white count, fever curve
# History of breast cancer status post double mastectomy and subsequent implant placement with metastases to hip and lung
-Currently on chemotherapy
-Status post radiation to right hip
-Onc consulted
#Hyponatremia
� Possibly secondary to SIADH in setting of pulmonary pathology
-mild
-monitor with resuscitation
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
-Continue Tylenol, duloxetine, pregabalin
Former smoker
Full code
DVT prophylaxis�heparin
Regular diet
Anticipated Discharge: > 48 hours
Subjective/Interval History
-
Date of Service: May 18, 2023
Drug reaction with cefazolin; cellulitis appears worse on cefazolin
Fever last night
Objective Data
-
Labs:
Laboratory Results
05/18/23
06:26
WBC 11.6 H
Hgb 9.4 L
Hct 27.3 L
Plt Count 141
Sodium 131 L
Potassium 3.5
Chloride 100
Carbon Dioxide 26
BUN 5 L
Creatinine 0.4 L
Glucose 93
Calcium 8.1 L
Total Bilirubin 0.5
AST 32
ALT 18
Alkaline Phosphatase 127 H
Vital Signs:
Vital Signs
Temp Pulse Resp BP Pulse Ox
98.7 F 92 16 92/57 96
05/18/23 07:31 05/18/23 07:31 05/18/23 07:31 05/18/23 07:31 05/18/23 07:31
I&O
05/17/23 05/18/23 05/19/23
06:59 06:59 06:59
Intake Total 680 / 680 2920 / 2920
Balance 680 / 680 2920 / 2920
Review of Systems
-
History Source: Patient
All other systems: Not reviewed unless documented
Data Reviewed
-
Diagnostic Radiology: Image personally visualized and interpreted and Report Reviewed by me
CT Scan: Image personally visualized and interpreted and Report Reviewed by me
Labs: Labs Reviewed by me
--- NOTE | 2023-05-18 15:54 | CM ---
Chart reviewed. Spoke with pt at bedside
Pt lives with and son in apartment
Independent, drives
Denies DME in home
Denies past HH/SNF
Has ride at d/c
PCP - Dr Malinda Cheney
Pharm - [facility]
CM will follow for d/c needs
Plan - anticipate home no needs
[2023-05-18 15:55] VITALS: BP 118/74
--- NOTE | 2023-05-18 19:45 | W.PN.ONC2 ---
Today's Communication / Plan
-
Pain controlled.
May want to have Dr. Guajardo see pt, eval whether implant can stay in place with question of infection.
Impression
Impression
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
Currently on Sacituzumab (Trodelvy) last received 05/06/23 w/ GCS-F support 05/07/23
Recurrence of breast cancer to left chest wall
Acute left chest wall mastitis
Acute leukocytosis, neutrophilia
Low grade fevers
Chronic LUE nerve pain
Plan
Plan
05/16 WBC 11.6
s/p GCS-F (Udenyca) 05/07/23
Monitor CBC w/ diff daily
Hgb stable, platelets at baseline
Continue IV antibiotics: Vancomycin
Monitor fevers
Supportive care
Monitor chest wall site, still with significant erythema and appearance of infection
Subjective/Objective
Chief Complaint
Metastatic triple-negative breast cancer to bone, left chest wall; chest wall cellulitis
Subjective
Pain controlled
Vital Signs:
Vital Signs
Temp Pulse Resp BP Pulse Ox
97.9 F 99 16 118/74 100
05/18/23 15:55 05/18/23 15:55 05/18/23 15:55 05/18/23 15:55 05/18/23 15:55
Lab Results:
Laboratory Data
WBC 11.6 10^3/uL (4.8-10.8) H 05/18/23 06:26
Hgb 9.4 g/dL (12.0-16.0) L 05/18/23 06:26
Plt Count 141 10^3/uL (130-400) 05/18/23 06:26
eGFR > 60.00 05/18/23 06:26
Physical Exam
[id number]
Erythema L upper chest wall
[2023-05-18] MEDS: LYRICA 100 MG PO (21:22)
[2023-05-18] MEDS: VANCOCIN 200 IV (22:01)
[2023-05-18 23:40] VITALS: BP 98/58
--- NOTE | 2023-05-19 00:21 | PTCARENOTE ---
Patient with fever 101.7F. Tylenol provided to patient for fever and patient also c/o slight headache. Temp recheck of 99.9F. Patient comfortable at this time. Call vernon within reach. Will monitor.
[2023-05-19] MEDS: BENADRYL 50 MG PO ×3 (05:10→22:01)
[2023-05-19] MEDS: VANCOCIN 200 IV ×3 (05:42→22:02)
[2023-05-19] MEDS: LR 1000 IV ×2 (05:42→22:04)
[2023-05-19 05:54] LABS: Hematocrit 26.1 % (37.0-47.0); Mean Corp Hgb Conc. 34.5 g/dL (33.0-37.0); Mean Corpuscular Hgb 28.9 pg (27.0-31.0); Mean Corpuscular Volume 83.9 fL (81.0-99.0); Mean Platelet Volume 10.2 fL (7.4-10.4); Platelet Count 149 10^3/uL (130-400); Red Blood Cell Count 3.11 10^6/uL (4.20-5.40); Red Cell Dist. Width 15.1 % (11.5-14.5); White Blood Cell Count 10.3 10^3/uL (4.8-10.8)
[2023-05-19 07:40] VITALS: BP 99/59
[2023-05-19] MEDS: HEPARIN 5000 UNITS SC ×2 (07:50→22:00)
[2023-05-19] MEDS: OSCAL CAL 500 500 MG PO (07:51)
[2023-05-19] MEDS: VITAMIN D3 (cholecalciferol) 25 MCG PO (07:51)
[2023-05-19 08:08] LABS: ALT (SGPT) 39 U/L (0-35); AST (SGOT) 65 U/L (14-36); Albumin 3.3 g/dl (3.5-5.0); Alkaline Phosphatase 148 U/L (38-126); Blood Urea Nitrogen 4 mg/dl (7-17); Carbon Dioxide 24 mmol/L (22-30); Chloride 102 mmol/L (98-107); Estimated Creatinine Clearance 112 ml/min; Glucose 97 mg/dl (70-99); Potassium 3.7 mmol/L (3.5-5.1); Sodium 131 mmol/L (135-145); Total Bilirubin 0.5 mg/dl (0.2-1.3); Total Protein 5.7 g/dl (6.3-8.2); eGFR > 60.00
--- NOTE | 2023-05-19 09:40 | PHA.VAN.FU ---
Addendum entered and electronically signed by Nerissa Poon Beba 05/19/23 19:03:
Per nursing, vancomycin reportedly being infused over 3 hours.
Cancelled peak as it is not feasible to draw this with an 8H interval and prolonged infusion time.
Prolonged infusion time also will likely increase patient's vancomycin level - trough remains ordered for tomorrow.
If trough at higher end of normal range, low threshold to change to Q12H interval since we will not be able to calculate a half-life nor AUC without the peak.
Original Note:
Vancomycin Assessment / Plan
- Assessment
Renal Function: Stable
WBC's are: Trending Down
In the past 24 hrs, patient has been: Febrile (Tmax 101.7)
- Dosing Plan
Continue: Vanc 1000mg IV Q8H
- Monitoring Plan
Peak Level: 3/4 at 0100
Trough Level: 3/4 at 0530
- Follow Up
Pharmacy will continue to follow.
Vancomycin Follow UP
- -
Patient Age: 53
Patient Sex: Female
Vancomycin Day #: 2
Indication: Skin And Soft Tissue
Requesting Provider: Deandre
Pertinent Antimicrobial Allergies:
Sharon syndrome with Vancomycin. Ordering physician requests diphenhydramine 50mg po prior to each Vanco dose and infusion rate slowed.
Height / Weight:
Height 5 ft 6 in
Actual Weight 78.925 kg
IBW in k.3
Adjusted BW in k.2
Pertinent Past Medical History: BREAST CA WITH METS (TNBC on Sacituzumab w/ GCS-F support); Failed cefaz
- Vital Signs / Lab Results
Temp Pulse Resp BP Pulse Ox
99.5 F 97 18 99/59 95
05/19/23 07:40 05/19/23 07:40 05/19/23 07:40 05/19/23 07:40 05/19/23 07:40
Lab Results - Hematology
05/16/23 05/17/23 05/18/23
13:46 05:56 06:26
WBC 13.4 H 12.0 H 11.6 H
05/19/23
05:34
WBC 10.3
Lab Results - Chemistry
05/16/23 05/17/23 05/18/23
13:46 05:56 06:26
BUN 7 7 5 L
Creatinine 0.4 L 0.4 L 0.4 L
Estimated Creat Clear 114 112 112
Albumin 4.0 3.6 3.3 L
05/19/23 05/19/23
05:34 07:19
BUN Cancelled 4 L
Creatinine Cancelled 0.4 L
Estimated Creat Clear Cancelled 112
Albumin Cancelled 3.3 L
--- NOTE | 2023-05-19 12:24 | W.PN.ID1 ---
Date of Service
Date of Service: May 19, 2023
Today's Communication
Continue Vancomycin.
Assessment / Plan
# Left upper chest wall erythema/induration/cellulitis improved today
# Fever last night
# Leukocytosis resolved
# Drug rash from cefazolin- improving
# Triple neg breast cancer with mets including to medial left chest wall, on new regimen Sacituzumab
# hx LUE brachial plexus injury with neuropathy, lymphedema
Plan:
- Blood cx's x 2 neg to date.
- Continue Vancomycin IV (d2) slow infusion and premed with Benadryl due to Sharon syndrome
-Follow temps.
-Follow clinically.
Chief Complaint
-: Cellulitis
Subjective / Review of Systems
Had fever last night. Rash on legs and arm better.
Vital Signs / Physical Exam
Vital Signs
Vital Signs
Temp Pulse Resp BP Pulse Ox
98.9 F 97 18 99/59 95
05/19/23 11:26 05/19/23 07:40 05/19/23 07:40 05/19/23 07:40 05/19/23 07:40
Selected Entries
05/18/23
20:16
Temp 101.7 F H
Physical Exam
Constitutional: No Acute Distress and Comfortable
Cardiovascular: Regular Rate and S1/S2
Pulmonary: Clear
Skin: Other (left chest wall erythema some decrease. Mild maculopapular rash on LUE and BLE improved)
Neurological: AO x 3
Objective Data
Lab Data
Lab Results
05/19/23 05:34
05/19/23 07:19
Estimated Creat Clear 112 ml/min 05/19/23 07:19
Total Bilirubin 0.5 mg/dl (0.2-1.3) 05/19/23 07:19
AST 65 U/L (14-36) H 05/19/23 07:19
ALT 39 U/L (0-35) H 05/19/23 07:19
Alkaline Phosphatase 148 U/L (38-126) H 05/19/23 07:19
Most recent labs reviewed.
Micro Results:
05/18/23 12:10 Blood Culture - Preliminary
Blood/Venous No Growth in 24 hours- Final report to follow
05/18/23 11:23 Blood Culture - Preliminary
Blood/Venous No Growth in 24 hours- Final report to follow
05/16/23 13:46 Influenza Types A & B (NADIRA) - Final
Nasal Swab Negative for Influenza A & B, NAAT
Negative results must be combined with clinical observations
and patient history.
Nucleic Acid Amplification test (NAAT)performed on the
[employer] platform.
05/16/23 CT chest: Interval increase in size of bilateral pulmonary nodules suspicious for progression of metastatic disease. Continued interval increase in size of confluent soft tissue along the medial left chest wall adjacent to the left breast
implant along with increased adjacent subcutaneous inflammation and overlying skin thickening. Differential includes mastitis, inflammatory breast cancer, metastatic disease and breast implant associated anaplastic large cell lymphoma.
04/18/23 PET: Approximately 4 subcentimeter confluent hypermetabolic soft tissue attenuation/mass along the medial left chest wall situated between the inferomedial margin of the left clavicle and the anterior margin of the first and second ribs,
involving the medial pectoralis major and pectoralis minor muscles. Confluent soft tissue thickening extends inferiorly along the left anterior chest wall parasternal location, contiguous with with the posterior medial margin of the left breast
prosthesis. This could represent fluid adjacent to the breast implant, with diffuse nonfocal FDG activity initial and delayed SUV max of 2.1 and 1.8. Consider regional metastatic disease versus breast implant associated anaplastic large cell
lymphoma. There are multiple pulmonary nodules, as described, with associated variable FDG activity. Some of the lesions are too small to characterize by PET/CT. Other lesions are nonspecific, possible etiologies of infection/inflammation vs
neoplasm (primary versus secondary).
[2023-05-19] MEDS: CYMBALTA DELAYED RELEASE 60 MG PO (12:45)
--- NOTE | 2023-05-19 13:31 | W.PN.HOSP.TC ---
Today's Communication/Plan
-
cont vanc
ruq sono
hep panel and hiv
Assessment / Plan
Assessment / Plan
Physical Exam
General: Well Developed, Well Nourished and No Apparent Distress
HEENT: NormoCephalic, Moist mucous membranes and Atraumatic
Respiratory: Clear
Cardiac: S1/S2 and Regular Rhythm; No Murmur or Rub
GI: Soft, Non Tender, Non Distended and Normal Bowel Sounds; No Organomegaly
Rectal: Deferred by Provider
Musculoskeletal: No Clubbing, No Cyanosis and No Edema
Skin: Other (left upper chest wall erythema, mild tenderness slightly worse today); No Rash
Neuro: Nonfocal/grossly intact
PLAN:
#Sepsis
# Chest Wall Cellulitis
Worse with cefazolin, switch back to vancomycin with Benadryl due to 'red man' syndrome
-ID consulted
�Follow-up cultures
� Follow-up white count, fever curve
-Can consider plastic surgery consult for implant f/u depending on improvement of cellulitis
# History of breast cancer status post double mastectomy and subsequent implant placement with metastases to hip and lung
-Currently on chemotherapy
-Status post radiation to right hip
-Onc consulted
#Hyponatremia
� Possibly secondary to SIADH in setting of pulmonary pathology
-mild
-monitor with resuscitation
#Transaminitis
-most likely 2/2 to acute infection v DILI
-RUQ sono ordered
-F/u Hep panel, hiv
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
-Continue Tylenol, duloxetine, pregabalin
Former smoker
Full code
DVT prophylaxis�heparin
Regular diet
Anticipated Discharge: > 48 hours
Subjective/Interval History
-
Date of Service: May 19, 2023
Fever last night; Rash on legs and arm better; cellulitis appears to be improved
Objective Data
-
Labs:
Laboratory Results
05/19/23 05/19/23
05:34 07:19
WBC 10.3
Hgb 9.0 L
Hct 26.1 L
Plt Count 149
Sodium Cancelled 131 L
Potassium Cancelled 3.7
Chloride Cancelled 102
Carbon Dioxide Cancelled 24
BUN Cancelled 4 L
Creatinine Cancelled 0.4 L
Glucose Cancelled 97
Calcium Cancelled 8.0 L
Total Bilirubin Cancelled 0.5
AST Cancelled 65 H
ALT Cancelled 39 H
Alkaline Phosphatase Cancelled 148 H
Vital Signs:
Vital Signs
Temp Pulse Resp BP Pulse Ox
98.9 F 97 18 99/59 95
05/19/23 11:26 05/19/23 07:40 05/19/23 07:40 05/19/23 07:40 05/19/23 07:40
I&O
05/18/23 05/19/23 05/20/23
06:59 06:59 06:59
Intake Total 2920 / 2920 2900 / 2900
Balance 2920 / 2920 2900 / 2900
Review of Systems
-
History Source: Patient
All other systems: Not reviewed unless documented
Data Reviewed
-
Diagnostic Radiology: Image personally visualized and interpreted and Report Reviewed by me
CT Scan: Image personally visualized and interpreted and Report Reviewed by me
Labs: Labs Reviewed by me
--- NOTE | 2023-05-19 14:41 | W.PN.ONC2 ---
Today's Communication / Plan
-
Consult Dr. Guajardo, Plastics, regarding possible reconstruction explant. Case discussed at length via secure text.
Preliminary plan is for explant in OR tomorrow afternoon.
NPO after breakfast.
Impression
Impression
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
Currently on Sacituzumab (Trodelvy) last received 05/06/23 w/ GCS-F support 05/07/23
Recurrence of breast cancer to left chest wall
Acute left chest wall cellulitis
Acute leukocytosis, neutrophilia
Chronic LUE nerve pain
Plan
Plan
Pt febrile to 101.7 last night. Significant blanching erythema on exam. I remain concerned regarding possibility that infection will not be able to be cleared with implant in place.
Case d/w Dr. Guajardo, Plastics. He will see pt in AM.
Subjective/Objective
Chief Complaint
TNBC, chest wall cellulitis
Subjective
T 101.7 last night. Pt family concerned about whether there may be involvement of implant or mesh placed previously.
Vital Signs:
Vital Signs
Temp Pulse Resp BP Pulse Ox
98.9 F 97 18 99/59 95
05/19/23 11:26 05/19/23 07:40 05/19/23 07:40 05/19/23 07:40 05/19/23 07:40
Lab Results:
Laboratory Data
WBC 10.3 10^3/uL (4.8-10.8) 05/19/23 05:34
Hgb 9.0 g/dL (12.0-16.0) L 05/19/23 05:34
Plt Count 149 10^3/uL (130-400) 05/19/23 05:34
eGFR > 60.00 05/19/23 07:19
Physical Exam
Awake, alert, non-toxic
R upper chest wall blanching erythema
Review of Systems
Review of Systems
Constitutional: Reports Fever
Orders
Orders
Orders From Last 24 Hours
05/19/23 14:38
Consult Plastic Surgery [PLASTIC SURGERY CONSULT] Routine
[2023-05-19 15:50] VITALS: BP 115/56
[2023-05-19] MEDS: LYRICA 100 MG PO (22:01)
[2023-05-19 23:15] VITALS: BP 119/56
[2023-05-20 00:15] VITALS: BP 119/56
[2023-05-20 03:00] VITALS: BP 121/66
[2023-05-20 04:42] LABS: Hematocrit 24.1 % (37.0-47.0); Hemoglobin 8.3 g/dL (12.0-16.0); Mean Corp Hgb Conc. 34.4 g/dL (33.0-37.0); Mean Corpuscular Hgb 28.9 pg (27.0-31.0); Mean Platelet Volume 9.6 fL (7.4-10.4); Platelet Count 170 10^3/uL (130-400); Red Blood Cell Count 2.87 10^6/uL (4.20-5.40); Red Cell Dist. Width 15.3 % (11.5-14.5); White Blood Cell Count 8.6 10^3/uL (4.8-10.8)
[2023-05-20 05:03] LABS: Vancomycin Trough 15.8 ug/ml (5-20)
[2023-05-20 05:13] LABS: ALT (SGPT) 33 U/L (0-35); AST (SGOT) 41 U/L (14-36); Albumin 3.1 g/dl (3.5-5.0); Alkaline Phosphatase 143 U/L (38-126); Blood Urea Nitrogen 4 mg/dl (7-17); Calcium 8.3 mg/dl (8.4-10.2); Carbon Dioxide 25 mmol/L (22-30); Chloride 102 mmol/L (98-107); Estimated Creatinine Clearance 112 ml/min; Glucose 107 mg/dl (70-99); Potassium 3.6 mmol/L (3.5-5.1); Sodium 134 mmol/L (135-145); Total Bilirubin 0.2 mg/dl (0.2-1.3); Total Protein 5.5 g/dl (6.3-8.2); eGFR > 60.00
[2023-05-20 07:00] VITALS: BP 121/61
[2023-05-20] MEDS: BENADRYL 25 MG IV (07:29)
[2023-05-20] MEDS: BENADRYL PO (07:29)
[2023-05-20] MEDS: FLUSH (NSS) 3 FLUSH IV (07:30)
[2023-05-20] MEDS: VANCOCIN 200 IV (07:31)
[2023-05-20] MEDS: HEPARIN 5000 UNITS SC ×2 (07:54→21:25)
[2023-05-20] MEDS: OSCAL CAL 500 PO (07:55)
[2023-05-20] MEDS: VITAMIN D3 (cholecalciferol) PO (07:55)
--- NOTE | 2023-05-20 08:30 | PHA.VAN.FU ---
Vancomycin Assessment / Plan
- Assessment
Renal Function: Stable
WBC's are: WNL
In the past 24 hrs, patient has been: Afebrile
- Assessment - Trough Based Monitoring
Trough Value: 15.8
Level Today was: Appropriate
Level Comments: Due to infusing dose over 3 hrs, we were unable to obtain peak
- Dosing Plan
Adjust Regimen to: 1250mg Q12H
New Regimen Predicts: AUC (533), Peak (32.8), Trough (13.7)
Dosing Comments: Will continue to infuse dose over 3 HRs due to reaction
- Monitoring Plan
No level(s) ordered at this time: Will continue to monitor. Will order levels in next few days
- Follow Up
Pharmacy will continue to follow.
Vancomycin Follow UP
- -
Patient Age: 53
Patient Sex: Female
Vancomycin Day #: 3
Indication: Skin And Soft Tissue
Requesting Provider: Deandre
Pertinent Antimicrobial Allergies:
Sharon syndrome with Vancomycin. Ordering physician requests diphenhydramine 50mg po prior to each Vanco dose and infusion rate slowed.
Height / Weight:
Height 5 ft 6 in
Actual Weight 78.925 kg
IBW in k.3
Adjusted BW in k.2
Pertinent Past Medical History: BREAST CA WITH METS (TNBC on Sacituzumab w/ GCS-F support); Failed cefaz
- Vital Signs / Lab Results
Temp Pulse Resp BP Pulse Ox
97.3 F 90 16 121/61 93
05/20/23 07:00 05/20/23 07:00 05/20/23 07:00 05/20/23 07:00 05/20/23 07:00
Lab Results - Hematology
05/18/23 05/19/23 05/20/23
06:26 05:34 04:27
WBC 11.6 H 10.3 8.6
Lab Results - Chemistry
05/18/23 05/19/23 05/19/23
06:26 05:34 07:19
BUN 5 L Cancelled 4 L
Creatinine 0.4 L Cancelled 0.4 L
Estimated Creat Clear 112 Cancelled 112
Albumin 3.3 L Cancelled 3.3 L
05/20/23
04:26
BUN 4 L
Creatinine 0.4 L
Estimated Creat Clear 112
Albumin 3.1 L
Microbiology Results
05/18/23 12:10 Blood Culture - Preliminary
Blood/Venous No Growth in 24 hours- Final report to follow
05/18/23 11:23 Blood Culture - Preliminary
Blood/Venous No Growth in 24 hours- Final report to follow
Therapeutic Drug Monitoring
Vancomycin Trough 15.8 ug/ml (5-20) 05/20/23 04:26
--- NOTE | 2023-05-20 10:28 | W.PN.ID1 ---
Date of Service
Date of Service: May 20, 2023
Today's Communication
Replace Vancomycin with Daptomycin.
Assessment / Plan
Triple neg breast cancer s/p bilateral mastectomy, bilateral breast implants, with recurrence/mets including to medial left chest wall, on new regimen Sacituzumab
# Left upper chest wall erythema/induration/cellulitis improving
- Chest CT: interval increase in size of confluent soft tissue along the medial left chest wall adjacent to the left breast implant along with increased adjacent subcutaneous inflammation and overlying skin thickening.
# Fever resolved
# Leukocytosis resolved
# Drug rash from cefazolin, persists off cefazolin
Suspect pruritic rash from Vancomycin despite premed with Benadryl and slow infusion.
# hx LUE brachial plexus injury with neuropathy, lymphedema
Plan:
- Blood cx's x 2 neg to date.
- Replace Vancomycin IV (d3) with Daptomycin IV.
Check CK in am.
- Hem/Onc recommends removal of left breast implant. Seen by Plastics this am.
Pt concerned about poor wound healing.
Chief Complaint
-: Cellulitis
Subjective / Review of Systems
Still with itchy rash especially during Vancomycin infusion despite premed with Benadryl.
Vital Signs / Physical Exam
Vital Signs
Vital Signs
Temp Pulse Resp BP Pulse Ox
97.3 F 90 16 121/61 93
05/20/23 07:00 05/20/23 07:00 05/20/23 07:00 05/20/23 07:00 05/20/23 07:00
Physical Exam
Constitutional: No Acute Distress and Comfortable
Eyes: Sclera Anicteric
Pulmonary: Clear
Gastrointestinal: Soft, Non Tender and Non Distended
Skin: Rash (Scattered maculopapular rash on BLE and LUE. Left chest wall + induration, erythema darker)
Neurological: AO x 3
Objective Data
Lab Data
Lab Results
05/20/23 04:27
05/20/23 04:26
Estimated Creat Clear 112 ml/min 05/20/23 04:26
Total Bilirubin 0.2 mg/dl (0.2-1.3) 05/20/23 04:26
AST 41 U/L (14-36) H 05/20/23 04:26
ALT 33 U/L (0-35) 05/20/23 04:26
Alkaline Phosphatase 143 U/L (38-126) H 05/20/23 04:26
Most recent labs reviewed.
Micro Results:
05/18/23 12:10 Blood Culture - Preliminary
Blood/Venous No Growth in 24 hours- Final report to follow
05/18/23 11:23 Blood Culture - Preliminary
Blood/Venous No Growth in 24 hours- Final report to follow
05/16/23 13:46 Influenza Types A & B (NADIRA) - Final
Nasal Swab Negative for Influenza A & B, NAAT
Negative results must be combined with clinical observations
and patient history.
Nucleic Acid Amplification test (NAAT)performed on the
[employer] platform.
05/16/23 CT chest: Interval increase in size of bilateral pulmonary nodules suspicious for progression of metastatic disease. Continued interval increase in size of confluent soft tissue along the medial left chest wall adjacent to the left breast
implant along with increased adjacent subcutaneous inflammation and overlying skin thickening. Differential includes mastitis, inflammatory breast cancer, metastatic disease and breast implant associated anaplastic large cell lymphoma.
04/18/23 PET: Approximately 4 subcentimeter confluent hypermetabolic soft tissue attenuation/mass along the medial left chest wall situated between the inferomedial margin of the left clavicle and the anterior margin of the first and second ribs,
involving the medial pectoralis major and pectoralis minor muscles. Confluent soft tissue thickening extends inferiorly along the left anterior chest wall parasternal location, contiguous with with the posterior medial margin of the left breast
prosthesis. This could represent fluid adjacent to the breast implant, with diffuse nonfocal FDG activity initial and delayed SUV max of 2.1 and 1.8. Consider regional metastatic disease versus breast implant associated anaplastic large cell
lymphoma. There are multiple pulmonary nodules, as described, with associated variable FDG activity. Some of the lesions are too small to characterize by PET/CT. Other lesions are nonspecific, possible etiologies of infection/inflammation vs
neoplasm (primary versus secondary).
Care Review
Plan reviewed with: Physician (Dr. Rehman)
--- NOTE | 2023-05-20 11:06 | W.PN.HOSP.TC ---
Today's Communication/Plan
-
continue Iv abx
Assessment / Plan
Assessment / Plan
PLAN:
#Sepsis
# Chest Wall Cellulitis
Worse with cefazolin, switched back to vancomycin with Benadryl due to 'red man' syndrome
-ID consulted
will need to make decision regarding whether breast implants will need to be removed
�Follow-up cultures
� Follow-up white count, fever curve
WBC 13.4-->12.0-->11.6-->10.3-->8.6
-Can consider plastic surgery consult for implant f/u depending on improvement of cellulitis
# History of breast cancer status post double mastectomy and subsequent implant placement with metastases to hip and lung
-Currently on chemotherapy
-Status post radiation to right hip
-Onc consulted
#Hyponatremia
Na 131-->134
� Possibly secondary to SIADH in setting of pulmonary pathology
-mild
-monitor with resuscitation
#Transaminitis
-most likely 2/2 to acute infection v DILI
-RUQ sono ordered
-F/u Hep panel, hiv
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
-Continue Tylenol, duloxetine, pregabalin
Former smoker
Full code
met with lamin Hoover, reviewed studies
DVT prophylaxis�heparin
Regular diet
Anticipated Discharge: > 48 hours
Subjective/Interval History
-
Date of Service: May 20, 2023
Pt with concerns
Objective Data
-
Labs:
Laboratory Results
05/20/23 05/20/23
04:26 04:27
WBC 8.6
Hgb 8.3 L
Hct 24.1 L
Plt Count 170
Sodium 134 L
Potassium 3.6
Chloride 102
Carbon Dioxide 25
BUN 4 L
Creatinine 0.4 L
Glucose 107 H
Calcium 8.3 L
Total Bilirubin 0.2
AST 41 H
ALT 33
Alkaline Phosphatase 143 H
Vital Signs:
Vital Signs
Temp Pulse Resp BP Pulse Ox
97.3 F 90 16 121/61 93
05/20/23 07:00 05/20/23 07:00 05/20/23 07:00 05/20/23 07:00 05/20/23 07:00
I&O
05/19/23 05/20/23 05/21/23
06:59 06:59 06:59
Intake Total 2900 / 2900 2014
Balance 2900 / 2900 2014
Review of Systems
-
History Source: Patient and Family (dgt, Sneha present)
Constitutional: Denies Fever (afebrile x 36 hrs)
EENT: Reports No Symptoms Reported
Respiratory: Reports No Symptoms
Cardiac: Reports No Symptoms
Genitourinary: Reports No Symptoms
Skin: Reports Rash
Physical Exam
-
General: Well Developed, Well Nourished, No Apparent Distress and Appears Chronically Ill
HEENT: Normocephalic, Atraumatic and Moist Mucous Membranes
Respiratory: Clear to Auscultation; Negative Wheezes, Rales or Rhonchi
Cardiac: Regular Rhythm and S1/S2
GI: Soft, Nontender and Nondistended
Skin: Rash (left upper chest wall erythema, mild tenderness)
Neuro: Awake, Alert and Oriented
[2023-05-20 11:41] LABS: Creatine Phosphokinase < 20 U/L (30-135)
[2023-05-20] MEDS: CYMBALTA DELAYED RELEASE 60 MG PO (13:03)
--- NOTE | 2023-05-20 14:27 | CM ---
chest wall cellullitis on iv abx-changed back to vanco,.plan discharge home with no needs.
[2023-05-20 15:00] VITALS: BP 121/66
[2023-05-20] MEDS: FLUSH (NSS) 2 FLUSH IV (16:06)
[2023-05-20] MEDS: CUBICIN 10 MG IV (16:06)
--- NOTE | 2023-05-20 17:26 | CON.PS ---
Consultation - Plastic Surgery
Consultation Request
Date/Time Consultation Requested: May 19, 2023
Date/Time Consultation Performed: May 20, 2023
Requesting Provider: Dr. Diaz
Performing Provider: URMILA Guajardo MD
Reason for Consultation: Persistent cellulitis with history of implant-based breast reconstruction
Medical History
-
Chief Complaint: Left red breast
History of Present Illness:
53-year-old female with a history of advanced left breast cancer status post prior bilateral skin sparing mastectomies and two-stage ceramic tiler to implant reconstruction. She is currently undergoing aggressive chemotherapy treatment and has a history
of left chest wall radiation. She presented to the emergency department with a history of left breast swelling and redness. Small area of fluctuance overlying the implant. She has baseline chronic skin changes of the medial chest wall associated
with the radiation. She was noted to be febrile with a leukocytosis. CT scan was performed and did not show palak fluid around the prosthetic. She was maintained on IV antibiotics and followed by infectious disease. Due to the persistent nature
of the cellulitis and her ongoing need for chemotherapy, medical oncology and the patient both advocated for removing the breast implants.
Of note she has had severe radiculopathy of the left upper extremity resulting in motor and sensory deficits. This has persisted for over a year. Uncertain etiology and guarded expectation for recovery.
Past Medical History
Past Medical History: Cancer
Past Surgical History: Other
Social History
Tobacco: Non-Smoker
Allergies / Home Medications
Allergy/AdvReac Type Severity Reaction Status Date / Time
cefazolin Allergy Intermediate Rash Verified 05/19/23 12:22
Vancomcycin AdvReac Sharon Uncoded 05/20/23 10:52
syndrome;
itchy rash
despite
premed w/
Benadry
Medication Instructions Recorded Confirmed Type
cholecalciferol (vitamin D3) 25 25 mcg PO DAILY Supplement 03/26/23 05/16/23 History
mcg (1,000 unit) tablet (Vitamin
D3)
duloxetine 60 mg capsule,delayed 60 mg PO DAILY@1230 depression 03/26/23 05/16/23 History
release (Cymbalta)
pregabalin 50 mg capsule (Lyrica) 100 mg PO HS chronic 04/16/23 05/16/23 History
pain/neuropathy
acetaminophen 500 mg tablet 1,000 mg PO QIDPRN PRN mild pain 05/16/23 05/16/23 History
(Tylenol Extra Strength)
calcium carbonate 500 mg calcium 500 mg PO DAILY Supplement 05/16/23 05/16/23 History
(1,250 mg) tablet
ondansetron 4 mg disintegrating 4 mg PO Q6HPRN PRN nausea from 05/16/23 05/16/23 History
tablet chemo
sacituzumab govitecan-hziy 180 mg 0 mg IV UD breast cancer 05/16/23 05/16/23 History
intravenous solution (Trodelvy)
Review of Systems
-
History Source: Patient
All other systems: Negative unless noted
Constitutional: Fever
Skin: Other
Physical Exam
Vital Signs
Temp 99 F 05/20/23 15:00
Temp route: Oral 05/20/23 07:00
Pulse 103 05/20/23 15:00
Resp Rate 16 05/20/23 15:00
Blood pressure 121/66 05/20/23 15:00
Blood pressure extremity used: Right calf 05/20/23 15:00
Position: Lying 05/20/23 07:00
MAP (cuff-Fabián Monitor) 83 05/16/23 16:28
SaO2 96 05/20/23 15:00
Oxygen Mode of Delivery Room air 05/20/23 10:45
Can the patient verbally communicate their pain? Yes 05/20/23 10:45
Pain scale ratin 05/19/23 21:45
Actual Weight 174 lb 05/16/23 19:26
Body Mass Index (BMI) 28.1 05/16/23 19:26
Physical exam:
No acute distress
No increased work of breathing
Alert and interactive
Right breast implant in place with routine incisional healing
Left breast implant in place with routine incisional healing, jyoti-incisional erythema, blanching, with chronic appearing medial chest wall radiation changes
Small area of appreciable fluctuance overlying the prior surgical scar
Left upper extremity with severely diminished motor or sensory function, has been her baseline for at least 12 months
Lab Results
05/20/23 04:27
05/20/23 04:26
Assessment / Plan
-
Plan for OR tomorrow for explant of bilateral implants and capsulectomy
NPO after midnight
We have a long discussion about her options which include continued IV antibiotic therapy followed by a prolonged duration of p.o. antibiotic therapy with careful observation and attempts to clear the cellulitis, removal of the implant with
reinsertion, and removal of the implant without reinsertion.
CT scan did not show a large fluid collection around the left breast implant, thereby there is no hard and fast indication for removal. That said the area of cellulitis and fluctuance has persisted and seems consistent with a small superficial
fluid collection.
With regards to removal and replacement, this would only be advisable if the pocket was pristine and no evidence of infection was present. This is likely the least advisable scenario given her current state and need to continue chemotherapy.
Removal of the implant without reinsertion will result in the ability to clear any potential infection but will also result in a contour abnormality of the chest wall. Given the history of radiation, further attempts at reconstruction would be
severely compromised. Flap reconstruction is likely her only option moving forward.
Having discussed this with the patient she would like to remove not only the left implant but also the right implant. Her priority is focusing on the breast cancer therapy, which this has delayed. We discussed that the implants are meant to
improve quality of life after diagnosis of breast cancer if this is no longer being achieved within is very reasonable to go without a reconstruction. She was counseled on the resultant chest wall deformity as a result of tissue expansion. She
understood these risks and desired to proceed with surgery. Risks of the procedure itself include wound healing complications secondary to the radiation, bleeding, hematoma, seroma. We discussed the need for capsulectomy and the fact that tissue
and fluid would be sent for culture of the capsule would be sent for permanent pathology.
She desired to proceed and the plan was made accordingly. Her was at the bedside and was in agreement with this decision
--- NOTE | 2023-05-20 18:32 | W.PN.ONC2 ---
Today's Communication / Plan
-
Agree with surgical plans so that pt has less chance of infection interfering with cancer treatment going forward.
Impression
Impression
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
Currently on Sacituzumab (Trodelvy) last received 05/06/23 w/ GCS-F support 05/07/23
Recurrence of breast cancer to left chest wall
Acute left chest wall cellulitis
Acute leukocytosis, neutrophilia
Chronic LUE nerve pain
Plan
Plan
Significant blanching erythema on exam. I remain concerned regarding possibility that infection will not be able to be cleared with implant in place.
Case d/w Dr. Guajardo, Plastics.
Plan is noted for explant of bilateral reconstructions tomorrow.
Subjective/Objective
Chief Complaint
Met breast cancer, chest wall cellulitis.
Subjective
Fever curve improving but appearance of chest wall still consistent with cellulitis.
Vital Signs:
Vital Signs
Temp Pulse Resp BP Pulse Ox
99 F 103 16 121/66 96
05/20/23 15:00 05/20/23 15:00 05/20/23 15:00 05/20/23 15:00 05/20/23 15:00
Lab Results:
Laboratory Data
WBC 8.6 10^3/uL (4.8-10.8) 05/20/23 04:27
Hgb 8.3 g/dL (12.0-16.0) L 05/20/23 04:27
Plt Count 170 10^3/uL (130-400) 05/20/23 04:27
eGFR > 60.00 05/20/23 04:26
Orders
Orders
Orders From Last 24 Hours
05/20/23 Lunch
KIAN
[2023-05-20 20:00] LABS: Hepatitis B Surface Antigen Negative (Negative)
[2023-05-20 20:17] LABS: Hepatitis B Surface Antibody Negative; Hepatitis C Antibody Negative (Negative)
[2023-05-20] MEDS: LYRICA 100 MG PO (21:25)
[2023-05-20 21:29] LABS: Hepatitis A IgM Antibody Negative (Negative); Hepatitis B Core Ab, IgM Negative (Negative)
[2023-05-20] MEDS: TYLENOL 1000 MG PO (23:07)
[2023-05-20 23:48] VITALS: BP 113/68
[2023-05-21] VITALS (10 sets, daily range): BP systolic 5–126; BP diastolic 55–71
[2023-05-21 06:27] LABS: Hematocrit 25.8 % (37.0-47.0); Hemoglobin 8.5 g/dL (12.0-16.0); Mean Corp Hgb Conc. 32.9 g/dL (33.0-37.0); Mean Corpuscular Hgb 28.1 pg (27.0-31.0); Mean Corpuscular Volume 85.4 fL (81.0-99.0); Mean Platelet Volume 9.4 fL (7.4-10.4); Platelet Count 188 10^3/uL (130-400); Red Blood Cell Count 3.02 10^6/uL (4.20-5.40); Red Cell Dist. Width 15.2 % (11.5-14.5); White Blood Cell Count 7.1 10^3/uL (4.8-10.8)
--- NOTE | 2023-05-21 09:20 | W.PN.ID1 ---
Date of Service
Date of Service: May 21, 2023
Today's Communication
Continue Daptomycin.
Asked Dr. Guajardo to send intra-op cultures from left chest wall.
Assessment / Plan
Triple neg breast cancer s/p bilateral mastectomy, bilateral breast implants, with recurrence/mets including to medial left chest wall, on new regimen Sacituzumab
# Left upper chest wall erythema/induration/cellulitis stable
- Chest CT: interval increase in size of confluent soft tissue along the medial left chest wall adjacent to the left breast implant along with increased adjacent subcutaneous inflammation and overlying skin thickening.
# Fever resolved
# Leukocytosis resolved
# Drug rash from cefazolin, persists off cefazolin
# pruritic rash from Vancomycin improved off Vancomycin
# hx LUE brachial plexus injury with neuropathy, lymphedema
Plan:
- Blood cx's x 2 neg to date.
- Continue Daptomycin IV.
CK normal
- For bilateral breast implant removal today. Please send intra-op cultures
Chief Complaint
-: Cellulitis
Subjective / Review of Systems
For bilateral breast implant removal today.
LE itchy rash improved off Vancomycin.
Vital Signs / Physical Exam
Vital Signs
Vital Signs
Temp Pulse Resp BP Pulse Ox
97.7 F 95 18 113/68 95
05/21/23 03:00 05/20/23 23:48 05/20/23 23:48 05/20/23 23:48 05/20/23 23:48
Physical Exam
Constitutional: No Acute Distress
Pulmonary: Clear
Gastrointestinal: Soft, Non Tender and Distended
Skin: Other (left chest wall + induration/erythema/warmth; BLE rash resolved. L upper arm rash improved)
Neurological: AO x 3
Objective Data
Lab Data
Lab Results
05/21/23 05:55
05/20/23 04:26
Estimated Creat Clear 112 ml/min 05/20/23 04:26
Total Bilirubin 0.2 mg/dl (0.2-1.3) 05/20/23 04:26
AST 41 U/L (14-36) H 05/20/23 04:26
ALT 33 U/L (0-35) 05/20/23 04:26
Alkaline Phosphatase 143 U/L (38-126) H 05/20/23 04:26
Most recent labs reviewed.
Micro Results:
05/18/23 12:10 Blood Culture - Preliminary
Blood/Venous No Growth in 48 hours- Final report to follow
05/18/23 11:23 Blood Culture - Preliminary
Blood/Venous No Growth in 48 hours- Final report to follow
05/16/23 13:46 Influenza Types A & B (NADIRA) - Final
Nasal Swab Negative for Influenza A & B, NAAT
Negative results must be combined with clinical observations
and patient history.
Nucleic Acid Amplification test (NAAT)performed on the
[employer] platform.
05/16/23 CT chest: Interval increase in size of bilateral pulmonary nodules suspicious for progression of metastatic disease. Continued interval increase in size of confluent soft tissue along the medial left chest wall adjacent to the left breast
implant along with increased adjacent subcutaneous inflammation and overlying skin thickening. Differential includes mastitis, inflammatory breast cancer, metastatic disease and breast implant associated anaplastic large cell lymphoma.
04/18/23 PET: Approximately 4 subcentimeter confluent hypermetabolic soft tissue attenuation/mass along the medial left chest wall situated between the inferomedial margin of the left clavicle and the anterior margin of the first and second ribs,
involving the medial pectoralis major and pectoralis minor muscles. Confluent soft tissue thickening extends inferiorly along the left anterior chest wall parasternal location, contiguous with with the posterior medial margin of the left breast
prosthesis. This could represent fluid adjacent to the breast implant, with diffuse nonfocal FDG activity initial and delayed SUV max of 2.1 and 1.8. Consider regional metastatic disease versus breast implant associated anaplastic large cell
lymphoma. There are multiple pulmonary nodules, as described, with associated variable FDG activity. Some of the lesions are too small to characterize by PET/CT. Other lesions are nonspecific, possible etiologies of infection/inflammation vs
neoplasm (primary versus secondary).
[2023-05-21] MEDS: HEPARIN 5000 UNITS SC ×2 (09:50→21:42)
[2023-05-21] MEDS: VITAMIN D3 (cholecalciferol) PO (09:59)
[2023-05-21] MEDS: OSCAL CAL 500 PO (09:59)
--- NOTE | 2023-05-21 11:21 | W.PN.HOSP.TC ---
Today's Communication/Plan
-
surgical intervention today
continue Daptomycin
Assessment / Plan
Assessment / Plan
PLAN:
#Sepsis
# Chest Wall Cellulitis
Worse with cefazolin, now on Daptomycin
-ID consulted
�Follow-up intra op cultures
� Follow-up white count, fever curve
WBC 13.4-->12.0-->11.6-->10.3-->8.6-->7.1
# History of breast cancer status post double mastectomy and subsequent implant placement with metastases to hip and lung
-Currently on chemotherapy
-Status post radiation to right hip
-Onc consulted, input appreciated
#Hyponatremia
Na 131-->134
� Possibly secondary to SIADH in setting of pulmonary pathology
-mild
-monitor with resuscitation
#Transaminitis
-most likely 2/2 to acute infection
-RUQ sono: Findings suggesting a small hepatic hemangioma. Decreased.
Poor visualization of pancreas.
Nonshadowing echogenic focus in the left kidney suggestive of� a nonobstructing renal stone. Confirmed by CT examination. Stable
Mild hepatomegaly. Stable
-Neg Hep panel, pending hiv
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
-Continue Tylenol, duloxetine, pregabalin
Former smoker
Full code
met with dgcayden Hoover 05/19, reviewed studies
DVT prophylaxis�heparin
Regular diet
Anticipated Discharge: > 48 hours
Subjective/Interval History
-
Date of Service: May 21, 2023
[address] Guajardo for explant of bilateral implants this afternoon
Objective Data
-
Labs:
Laboratory Results
05/21/23
05:55
WBC 7.1
Hgb 8.5 L
Hct 25.8 L
Plt Count 188
Vital Signs:
Vital Signs
Temp Pulse Resp BP Pulse Ox
99.2 F 82 20 126/62 94
05/21/23 10:08 05/21/23 10:08 05/21/23 10:08 05/21/23 10:08 05/21/23 10:08
I&O
05/20/23 05/21/23 05/22/23
06:59 06:59 06:59
Intake Total 2014 680 / 680
Balance 2014 680 / 680
Review of Systems
-
History Source: Patient
Constitutional: Denies Fever (100.2 last evening, otherwise afebrile)
EENT: Reports No Symptoms Reported
Respiratory: Reports No Symptoms
Cardiac: Reports No Symptoms
Genitourinary: Reports No Symptoms
Skin: Reports Rash
Physical Exam
-
General: Well Developed, Well Nourished, No Apparent Distress and Appears Chronically Ill
HEENT: Normocephalic, Atraumatic and Moist Mucous Membranes
Respiratory: Clear to Auscultation; Negative Wheezes, Rales or Rhonchi
Cardiac: Regular Rhythm and S1/S2
GI: Soft, Nontender and Nondistended
Skin: Rash (left upper chest wall erythema has decreased minimally, mild tenderness)
Neuro: Awake, Alert and Oriented
[2023-05-21] MEDS: CYMBALTA DELAYED RELEASE PO (11:47)
--- NOTE | 2023-05-21 12:51 | W.PN.ONC ---
Today's Communication / Plan
-
for bilateral implant removal today, await micro studies
continue antibiotics
follow CBC
further breast cancer treatment once she recovers from infection
Impression
Impression
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
Currently on Sacituzumab (Trodelvy) last received 05/06/23 w/ GCS-F support 05/07/23
Recurrence of breast cancer to left chest wall
Acute left chest wall cellulitis
Acute leukocytosis, neutrophilia
Chronic LUE nerve pain
Plan
Plan
for bilateral implant removal today, await micro studies
continue antibiotics
follow CBC
further breast cancer treatment once she recovers from infection
Subjective/Objective
Subjective/Objective
left chest erythema/swelling has lessened, for surgery later today
Vital Signs:
Vital Signs
Temp Pulse Resp BP Pulse Ox
99.2 F 82 20 126/62 94
05/21/23 10:08 05/21/23 10:08 05/21/23 10:08 05/21/23 10:08 05/21/23 10:08
Lab Results:
Laboratory Data
WBC 7.1 10^3/uL (4.8-10.8) 05/21/23 05:55
Hgb 8.5 g/dL (12.0-16.0) L 05/21/23 05:55
Plt Count 188 10^3/uL (130-400) 05/21/23 05:55
eGFR > 60.00 05/20/23 04:26
--- NOTE | 2023-05-21 13:55 | PTCARENOTE ---
Patient off unit, transported to OR by transport staff. Pharmacy notified to deliver 16:00 Daptomycin to OR.
[2023-05-21 15:41] LABS: HIV Combo Negative (Negative)
--- NOTE | 2023-05-21 17:00 | OR.RPT ---
Operative Report
Operative Report
Surgeon: URMILA Guajardo MD
Date of surgery: 05/21/2023
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
Postoperative diagnosis: Same
Procedure:
1. Bilateral removal of silicone breast implants
2. Bilateral capsulectomies
3. Revision to the left mastectomy skin flap
Anesthesia: General
Specimens: Left breast capsule for permanent, left breast capsule for micro, left breast fluid for micro
Estimated blood loss: 30 cc
Complications: None
Indications for procedure: Patient is a [age]-year-old female currently undergoing chemotherapy for advanced breast cancer. She is status post bilateral mastectomies and radiation therapy. She developed blanching erythema pain and swelling of the
left breast. She was admitted to the hospital and placed on IV antibiotics. After over 72 hours, the cellulitis persisted and area of induration remained. CT scan showed inflammation without distinct fluid collection. Conversation was had with
the patient as well as medical oncologist and infectious disease about the appropriateness of surgical removal of the implant. The patient on her own accord desired removal of the implant so she could proceed with her breast cancer therapy. As
such a plan was made for removal of the left implant, and the patient desired removal of the right implant for symmetry. Capsulectomies would be performed and specimen sent accordingly. Risk the procedure were reviewed including bleeding, seroma,
infection, chest wall contour abnormality, inability to undergo future breast reconstruction, mastectomy skin flap loss. She understood these risk desired to proceed
Procedure detail: Patient was identified preoperatively and the surgical site was confirmed to be the bilateral breast. Consents were confirmed and all questions were answered. Patient was then taken back to the operating room placed supine on the
table. Anesthesia was induced and the patient was prepped and draped using ChloraPrep solution in the usual sterile fashion. Timeout for patient safety was performed was confirmed that preoperative antibiotics have been administered bilateral SCDs
were placed. Local anesthesia was obtained first with the injection of 1% lidocaine with epinephrine in the bilateral proposed incisions along the prior scars of the breast. Procedure began on the right side by making incision with a 15 blade
along the prior scar dissection continued with Bovie electrocautery down and a capsulotomy was performed. The implant was encountered was found to be an Allergan 425 cc silicone gel implant that was intact. The capsule showed no abnormalities.
The implant was removed and a capsulectomy was performed on the right side. Meticulous hemostasis was ensured and a large bore Anatoliy drain was left. Regional anesthesia was obtained with the injection of quarter percent Marcaine and a pec block
and intercostal block fashion. The wound was then closed with a series of 3-0 and 4-0 Monocryl's. Attention was then drawn to the left side where the prior scar was incised with a 15 blade. A capsulotomy was made and simple fluid was immediately
encountered. This fluid was cultured for aerobic and anaerobic bacteria. The implant was subsequently moved removed and found to be intact without compromise. The capsule was inspected and there was a large amount of irregularity and thickening
with obvious calcification and white powdery buildup. The capsulectomy was performed and the tissue was sent for permanent pathology as well as for culture. Meticulous hemostasis was ensured and the pocket was irrigated with dilute Betadine
solution. A large bore Anatoliy drain was placed. Regional blocks were obtained with quarter percent Marcaine. Due to the thinness of the superior aspect of the mastectomy skin flap, revision to the mastectomy skin needed to be performed with
excisional techniques. As such the superior aspect the skin flap was cut back to healthy dermal bleeding with adequate subcutaneous tissue. The wound was then closed in layers using a series of 3-0 Monocryl followed by 2-0 nylon's. 2-0 nylon's
were used for the drain stitch. Wounds were dressed with bacitracin followed by dry gauze and Tegaderm dressings. Patient tolerated procedure well was performed without complication all counts were correct at the end the case. She was extubated
taken the PACU for further care.
[2023-05-21] MEDS: CUBICIN IV (17:05)
--- NOTE | 2023-05-21 17:11 | W.IMMPOSTOP ---
Surgical Immed Post Op Note
-
Primary Surgeon: URMILA Guajardo MD
Assisting Surgeon:
Pre-op Diagnosis: Left breast implant infection, breast cancer
Post-op Diagnosis: Same
Procedure Performed: Removal of bilateral breast implants, bilateral capsulectomies, revision to the left reconstructed breast
Anesthesia Type: General
Specimen / Cultures: Fluid for micro, tissue for micro, capsule for permanent path
Estimated Blood Loss: 30 cc
Complications: None
Operative Findings: Thickened calcified capsule no gross purulence, simple fluid in the periprosthetic space
--- NOTE | 2023-05-21 18:08 | PTCARENOTE ---
Received from PACU. Awake, alert, denies pain. Bilateral 4x4 and tegaderm gauze dressings clean/dry/intact. KIM drains patent, draining sanguineous output. Family at bedside.
[2023-05-21] MEDS: LYRICA 100 MG PO (21:42)
[2023-05-22 03:17] VITALS: BP 133/81
[2023-05-22 07:32] VITALS: BP 119/62
[2023-05-22] MEDS: HEPARIN 5000 UNITS SC ×2 (09:31→21:31)
[2023-05-22] MEDS: VITAMIN D3 (cholecalciferol) 25 MCG PO (09:31)
[2023-05-22] MEDS: OSCAL CAL 500 500 MG PO (09:31)
[2023-05-22 09:35] LABS: Hematocrit 26.2 % (37.0-47.0); Hemoglobin 8.9 g/dL (12.0-16.0); Mean Corpuscular Hgb 28.7 pg (27.0-31.0); Mean Corpuscular Volume 84.5 fL (81.0-99.0); Mean Platelet Volume 9.5 fL (7.4-10.4); Platelet Count 259 10^3/uL (130-400); Red Cell Dist. Width 15.4 % (11.5-14.5); White Blood Cell Count 11.2 10^3/uL (4.8-10.8)
[2023-05-22 11:17] VITALS: BP 121/68
--- NOTE | 2023-05-22 11:23 | W.PN.HOSP.TC ---
Today's Communication/Plan
-
continue IV abx
recheck labs in AM
Assessment / Plan
Assessment / Plan
PLAN:
#Sepsis
# Chest Wall Cellulitis
now on Daptomycin
-ID consulted
s/p bilateral implant removal 05/20
�Follow-up intra op cultures
� Follow-up white count, fever curve
WBC 13.4-->12.0-->11.6-->10.3-->8.6-->7.1-surgical intervention-->11.2
# History of breast cancer status post double mastectomy and subsequent implant placement with metastases to hip and lung
-Currently on chemotherapy prior to admission
-Status post radiation to right hip
-Onc consulted, input appreciated
#Hyponatremia
Na 131-->134
� Possibly secondary to SIADH in setting of pulmonary pathology
-mild
-monitor with resuscitation
#Transaminitis
-most likely 2/2 to acute infection
-RUQ sono: Findings suggesting a small hepatic hemangioma. Decreased.
Poor visualization of pancreas.
Nonshadowing echogenic focus in the left kidney suggestive of� a nonobstructing renal stone. Confirmed by CT examination. Stable
Mild hepatomegaly. Stable
-Neg Hep panel, pending hiv
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
-Continue Tylenol, duloxetine, pregabalin
Former smoker
Full code
met with lamin Hoover 05/19, reviewed studies
DVT prophylaxis�heparin
Regular diet
Anticipated Discharge: > 48 hours
Subjective/Interval History
-
Date of Service: May 22, 2023
Awake, alert
Objective Data
-
Labs:
Laboratory Results
05/22/23
07:46
WBC 11.2 H
Hgb 8.9 L
Hct 26.2 L
Plt Count 259 D
Vital Signs:
Vital Signs
Temp Pulse Resp BP Pulse Ox
98.2 F 83 16 121/68 100
05/22/23 11:17 05/22/23 11:17 05/22/23 11:17 05/22/23 11:17 05/22/23 11:17
I&O
05/21/23 05/22/23 05/23/23
06:59 06:59 06:59
Intake Total 680 / 680 100 / 100
Output Total 70 / 70
Balance 680 / 680 30 /
Review of Systems
-
History Source: Patient
Constitutional: Denies Fever (100.2 05/20/2023 evening, otherwise afebrile)
EENT: Reports No Symptoms Reported
Respiratory: Reports No Symptoms
Cardiac: Reports No Symptoms
Genitourinary: Reports No Symptoms
Skin: Reports Rash
Physical Exam
-
General: Well Developed, Well Nourished, No Apparent Distress and Appears Chronically Ill
HEENT: Normocephalic, Atraumatic and Moist Mucous Membranes
Respiratory: Clear to Auscultation; Negative Wheezes, Rales or Rhonchi
Cardiac: Regular Rhythm and S1/S2
GI: Soft, Nontender and Nondistended
Skin: Rash (left upper chest wall erythema has decreased minimally, mild tenderness has also decreased)
Neuro: Awake, Alert and Oriented
[2023-05-22] MEDS: CYMBALTA DELAYED RELEASE 60 MG PO (12:11)
[2023-05-22 15:31] VITALS: BP 130/72
--- NOTE | 2023-05-22 15:33 | CM ---
Chart reviewed
S/P bilateral implant removal on 05/20
Remains on IV abx
CM will cont to follow for d/c needs
Plan - home, needs tbd
--- NOTE | 2023-05-22 15:35 | W.PN.ID1 ---
Date of Service
Date of Service: May 22, 2023
Today's Communication
Anticipate transition to doxycycline 100mg po bid tomorrow.
Assessment / Plan
Triple neg breast cancer s/p bilateral mastectomy, bilateral breast implants, with recurrence/mets including to medial left chest wall, on new regimen Sacituzumab
# Left upper chest wall erythema/induration/cellulitis
- Chest CT: interval increase in size of confluent soft tissue along the medial left chest wall adjacent to the left breast implant along with increased adjacent subcutaneous inflammation and overlying skin thickening.
# Fever resolved
# Leukocytosis post-op
# Drug rash from cefazolin, persists off cefazolin
# pruritic rash from Vancomycin improved off Vancomycin
# hx LUE brachial plexus injury with neuropathy, lymphedema
Plan:
- Blood cx's x 2 neg
-05/21/23 s/p explant of bilateral breast prosthesis. Per Dr. Guajardo, implants did not look grossly infected, + calcifications.
Left chest wound cx neg to date; Tissue cx pending; Path pending
- Continue Daptomycin IV (d5 abx)
-Anticipate transition to doxycycline 100mg po bid tomorrow.
Chief Complaint
-: Cellulitis
Subjective / Review of Systems
No complaints today.
Vital Signs / Physical Exam
Vital Signs
Vital Signs
Temp Pulse Resp BP Pulse Ox
98.5 F 88 16 130/72 100
05/22/23 15:31 05/22/23 15:31 05/22/23 15:31 05/22/23 15:31 05/22/23 15:31
Physical Exam
Constitutional: No Acute Distress and Comfortable
Skin: Negative Rash
Wound: Other (Bilateral chest with dressings, drains with small bloody fluid.)
Objective Data
Lab Data
Lab Results
05/22/23 07:46
05/20/23 04:26
Estimated Creat Clear 112 ml/min 05/20/23 04:26
Total Bilirubin 0.2 mg/dl (0.2-1.3) 05/20/23 04:26
AST 41 U/L (14-36) H 05/20/23 04:26
ALT 33 U/L (0-35) 05/20/23 04:26
Alkaline Phosphatase 143 U/L (38-126) H 05/20/23 04:26
Most recent labs reviewed.
Micro Results:
05/21/23 15:30 Anaerobic Culture - Preliminary
Breast - Left Culture pending. Anaerobic cultures are examined after 3
days incubation. Additional information to follow.
05/21/23 15:30 Tissue Culture - Preliminary
Breast - Left Gram Stain - Pending
05/18/23 12:10 Blood Culture - Preliminary
Blood/Venous No Growth in 4 days- Final report to follow
05/21/23 15:30 Wound Culture - Preliminary
Breast - Left No growth
Gram Stain - Preliminary
05/18/23 11:23 Blood Culture - Preliminary
Blood/Venous No Growth in 4 days- Final report to follow
05/16/23 13:46 Influenza Types A & B (NADIRA) - Final
Nasal Swab Negative for Influenza A & B, NAAT
Negative results must be combined with clinical observations
and patient history.
Nucleic Acid Amplification test (NAAT)performed on the
[employer] platform.
05/16/23 CT chest: Interval increase in size of bilateral pulmonary nodules suspicious for progression of metastatic disease. Continued interval increase in size of confluent soft tissue along the medial left chest wall adjacent to the left breast
implant along with increased adjacent subcutaneous inflammation and overlying skin thickening. Differential includes mastitis, inflammatory breast cancer, metastatic disease and breast implant associated anaplastic large cell lymphoma.
04/18/23 PET: Approximately 4 subcentimeter confluent hypermetabolic soft tissue attenuation/mass along the medial left chest wall situated between the inferomedial margin of the left clavicle and the anterior margin of the first and second ribs,
involving the medial pectoralis major and pectoralis minor muscles. Confluent soft tissue thickening extends inferiorly along the left anterior chest wall parasternal location, contiguous with with the posterior medial margin of the left breast
prosthesis. This could represent fluid adjacent to the breast implant, with diffuse nonfocal FDG activity initial and delayed SUV max of 2.1 and 1.8. Consider regional metastatic disease versus breast implant associated anaplastic large cell
lymphoma. There are multiple pulmonary nodules, as described, with associated variable FDG activity. Some of the lesions are too small to characterize by PET/CT. Other lesions are nonspecific, possible etiologies of infection/inflammation vs
neoplasm (primary versus secondary).
[2023-05-22] MEDS: CUBICIN 10 MG IV (15:54)
[2023-05-22] MEDS: FLUSH (NSS) 2 FLUSH IV (15:55)
--- NOTE | 2023-05-22 18:12 | W.PN.PLAS ---
Today's Communication
-
Doing well
Progress Note
Subjective Data
Doing well, pain well-controlled, denies shortness of breath
Objective Data
Vital Signs
Temp Pulse Resp BP Pulse Ox
98.5 F 88 16 130/72 100
05/22/23 15:31 05/22/23 15:31 05/22/23 15:31 05/22/23 15:31 05/22/23 15:31
Intake and Output
05/21/23 05/22/23 05/23/23
06:59 06:59 06:59
Intake Total 680 / 680 100 / 100
Output Total 70 / 70 50 / 50
Balance 680 / 680 30 / 30 -50 / -50
Intake:
Oral fluids 480 / 480
IV fluids (Total) 100 / 100
Normosl 100 / 100
IV piggybacks 200 / 200
Output:
Drain Output (Total) 70 / 70 50 / 50
Left Breast 30 / 30 10 / 10
Right Breast 40 / 40 40 / 40
Other:
Number of approximated MODERATE 3 3
amounts of urine
Number of approximated LARGE 1
amounts of urine
physical exam:
No acute distress
No increased work of breathing
Bilateral breast incisions with routine healing, dressings in place
Bilateral KIM drain serosanguineous with appropriate output
Lab Results
05/22/23 07:46
05/20/23 04:26
Microbiology Results
05/21/23 15:30 Breast - Left Anaerobic Culture - Preliminary
Culture pending. Anaerobic cultures are examined after 3
days incubation. Additional information to follow.
05/21/23 15:30 Breast - Left Tissue Culture - Preliminary
05/18/23 12:10 Blood/Venous Blood Culture - Preliminary
No Growth in 4 days- Final report to follow
05/21/23 15:30 Breast - Left Wound Culture - Preliminary
No growth
05/21/23 15:30 Breast - Left Gram Stain - Preliminary
05/18/23 11:23 Blood/Venous Blood Culture - Preliminary
No Growth in 4 days- Final report to follow
Assessment / Plan
Status post left breast infection, concern for implant involvement, underwent bilateral removal of silicone gel implants with capsulectomy
Antibiotics per ID
KIM drain management
Pain control
[2023-05-22] MEDS: LYRICA 100 MG PO (21:32)
[2023-05-22 23:00] VITALS: BP 124/73
[2023-05-23 07:01] LABS: Hematocrit 25.9 % (37.0-47.0); Hemoglobin 8.5 g/dL (12.0-16.0); Mean Corp Hgb Conc. 32.8 g/dL (33.0-37.0); Mean Corpuscular Hgb 28.4 pg (27.0-31.0); Mean Corpuscular Volume 86.6 fL (81.0-99.0); Mean Platelet Volume 9.2 fL (7.4-10.4); Platelet Count 259 10^3/uL (130-400); Red Blood Cell Count 2.99 10^6/uL (4.20-5.40); Red Cell Dist. Width 15.5 % (11.5-14.5); White Blood Cell Count 7.6 10^3/uL (4.8-10.8)
[2023-05-23 07:39] LABS: ALT (SGPT) 28 U/L (0-35); AST (SGOT) 29 U/L (14-36); Albumin 3.2 g/dl (3.5-5.0); Alkaline Phosphatase 153 U/L (38-126); Blood Urea Nitrogen 11 mg/dl (7-17); Calcium 8.6 mg/dl (8.4-10.2); Carbon Dioxide 24 mmol/L (22-30); Chloride 101 mmol/L (98-107); Estimated Creatinine Clearance 112 ml/min; Glucose 87 mg/dl (70-99); Sodium 137 mmol/L (135-145); Total Bilirubin 0.3 mg/dl (0.2-1.3); Total Protein 5.7 g/dl (6.3-8.2); eGFR > 60.00
[2023-05-23 07:50] VITALS: BP 135/63
[2023-05-23] MEDS: HEPARIN 5000 UNITS SC (09:03)
[2023-05-23] MEDS: VITAMIN D3 (cholecalciferol) 25 MCG PO (09:03)
[2023-05-23] MEDS: OSCAL CAL 500 500 MG PO (09:03)
--- NOTE | 2023-05-23 11:00 | CM ---
Addendum entered by Gilda Harmon 05/23/23 16:13:
CM consulted for VN/HH
Spoke with pts /pt - no preference
Referral sent vis to Liaison for [facility]
Plan - home with [facility]
Original Note:
CM following for d/c planning
Chart reviewed and spoke with pt at bedside
Per pt may be d/c'ed today/tomorrow
Has a ride home with family
Plan - d/c to home - no needs
--- NOTE | 2023-05-23 11:33 | W.PN.ONC ---
Today's Communication / Plan
-
post implant removal
continue antibiotics
follow CBC
further breast cancer treatment once she recovers from infection
Impression
Impression
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
Currently on Sacituzumab (Trodelvy) last received 05/06/23 w/ GCS-F support 05/07/23
Recurrence of breast cancer to left chest wall
Acute left chest wall cellulitis
Acute leukocytosis, neutrophilia
Chronic LUE nerve pain
Subjective/Objective
Subjective/Objective
Patient reasonably comfortable. KIM P drains in place
Vital Signs:
Vital Signs
Temp Pulse Resp BP Pulse Ox
98.5 F 80 17 135/63 96
05/23/23 07:50 05/23/23 07:50 05/23/23 07:50 05/23/23 07:50 05/23/23 07:50
PE: Unchanged
Lab Results:
Laboratory Data
WBC 7.6 10^3/uL (4.8-10.8) 05/23/23 05:59
Hgb 8.5 g/dL (12.0-16.0) L 05/23/23 05:59
Plt Count 259 10^3/uL (130-400) 05/23/23 05:59
eGFR > 60.00 05/23/23 05:59
--- NOTE | 2023-05-23 11:51 | W.PN.ID1 ---
Date of Service
Date of Service: May 23, 2023
Today's Communication
- Transition Daptomycin IV (d6 abx) to doxycycline 100mg po bid x 10 more days.
- Will give first dose of doxycycline now. If tolerates, can DC home today.
Assessment / Plan
Triple neg breast cancer s/p bilateral mastectomy, bilateral breast implants, with recurrence/mets including to medial left chest wall, on new regimen Sacituzumab
# Left upper chest wall erythema/induration/cellulitis
- Chest CT: interval increase in size of confluent soft tissue along the medial left chest wall adjacent to the left breast implant along with increased adjacent subcutaneous inflammation and overlying skin thickening.
# Fever resolved
# Leukocytosis post-op - resolved
# Drug rash from cefazolin, persisted off cefazolin
# pruritic rash from Vancomycin improved off Vancomycin
# hx LUE brachial plexus injury with neuropathy, lymphedema
Plan:
- Blood cx's x 2 neg
-05/21/23 s/p explant of bilateral breast prosthesis. Per Dr. Guajardo, implants did not look grossly infected, + calcifications.
Left chest OR wound cx neg to date; Tissue cx negative to date; Path pending
- Transition Daptomycin IV (d6 abx) to doxycycline 100mg po bid x 10 more days.
Will give first dose of doxycycline now. If tolerates, can DC home.
Chief Complaint
-: Cellulitis
Subjective / Review of Systems
Feels well.
Vital Signs / Physical Exam
Vital Signs
Vital Signs
Temp Pulse Resp BP Pulse Ox
98.5 F 80 17 135/63 96
05/23/23 07:50 05/23/23 07:50 05/23/23 07:50 05/23/23 07:50 05/23/23 07:50
Physical Exam
Constitutional: No Acute Distress
Cardiovascular: Regular Rate and S1/S2
Pulmonary: Clear
Gastrointestinal: Soft and Non Tender
Wound: Other (Bilateral chest wall incision clean, previous left chest induration/eythema resolved.)
Objective Data
Lab Data
Lab Results
05/23/23 05:59
05/23/23 05:59
Estimated Creat Clear 112 ml/min 05/23/23 05:59
Total Bilirubin 0.3 mg/dl (0.2-1.3) 05/23/23 05:59
AST 29 U/L (14-36) 05/23/23 05:59
ALT 28 U/L (0-35) 05/23/23 05:59
Alkaline Phosphatase 153 U/L (38-126) H 05/23/23 05:59
Most recent labs reviewed.
Micro Results:
05/18/23 11:23 Blood Culture - Final
Blood/Venous No Growth - Final Report
05/21/23 15:30 Wound Culture - Preliminary
Breast - Left No growth
Gram Stain - Preliminary
05/21/23 15:30 Tissue Culture - Preliminary
Breast - Left NO GROWTH
Gram Stain - Final
05/21/23 15:30 Anaerobic Culture - Preliminary
Breast - Left Culture pending. Anaerobic cultures are examined after 3
days incubation. Additional information to follow.
05/18/23 12:10 Blood Culture - Preliminary
Blood/Venous No Growth in 4 days- Final report to follow
05/16/23 13:46 Influenza Types A & B (NADIRA) - Final
Nasal Swab Negative for Influenza A & B, NAAT
Negative results must be combined with clinical observations
and patient history.
Nucleic Acid Amplification test (NAAT)performed on the
[employer] platform.
05/16/23 CT chest: Interval increase in size of bilateral pulmonary nodules suspicious for progression of metastatic disease. Continued interval increase in size of confluent soft tissue along the medial left chest wall adjacent to the left breast
implant along with increased adjacent subcutaneous inflammation and overlying skin thickening. Differential includes mastitis, inflammatory breast cancer, metastatic disease and breast implant associated anaplastic large cell lymphoma.
04/18/23 PET: Approximately 4 subcentimeter confluent hypermetabolic soft tissue attenuation/mass along the medial left chest wall situated between the inferomedial margin of the left clavicle and the anterior margin of the first and second ribs,
involving the medial pectoralis major and pectoralis minor muscles. Confluent soft tissue thickening extends inferiorly along the left anterior chest wall parasternal location, contiguous with with the posterior medial margin of the left breast
prosthesis. This could represent fluid adjacent to the breast implant, with diffuse nonfocal FDG activity initial and delayed SUV max of 2.1 and 1.8. Consider regional metastatic disease versus breast implant associated anaplastic large cell
lymphoma. There are multiple pulmonary nodules, as described, with associated variable FDG activity. Some of the lesions are too small to characterize by PET/CT. Other lesions are nonspecific, possible etiologies of infection/inflammation vs
neoplasm (primary versus secondary).
Care Review
Plan reviewed with: Physician (Dr. Nova)
[2023-05-23] MEDS: CYMBALTA DELAYED RELEASE 60 MG PO (12:25)
[2023-05-23] MEDS: VIBRAMYCIN 100 MG PO (13:40)
--- NOTE | 2023-05-23 14:06 | W.PN.HOSP.TC ---
Today's Communication/Plan
-
dc now
Assessment / Plan
Assessment / Plan
PLAN:
#Sepsis
# Chest Wall Cellulitis
was on Daptomycin, now started on Doxycycline
-ID input appreciated
s/p bilateral implant removal 05/20
�Follow-up intra op cultures
� Follow-up white count, fever curve
WBC 13.4-->12.0-->11.6-->10.3-->8.6-->7.1-surgical intervention-->11.2-->7.6
# History of breast cancer status post double mastectomy and subsequent implant placement with metastases to hip and lung
-Currently on chemotherapy prior to admission
-Status post radiation to right hip
-Onc consulted, input appreciated
#Hyponatremia
Na 131-->134-->137
� Possibly secondary to SIADH in setting of pulmonary pathology
-resolved
-monitor with resuscitation
#Transaminitis
-most likely 2/2 to acute infection
betrter, AST 65-->41-->29
-RUQ sono: Findings suggesting a small hepatic hemangioma. Decreased.
Poor visualization of pancreas.
Nonshadowing echogenic focus in the left kidney suggestive of� a nonobstructing renal stone. Confirmed by CT examination. Stable
Mild hepatomegaly. Stable
-Neg Hep panel, pending hiv
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
-Continue Tylenol, duloxetine, pregabalin
Former smoker
Full code
met with lamin Hoover 05/19, 05/22 reviewed studies
DVT prophylaxis�heparin
Regular diet
More than 30 minutes spent in discharge including
Final examination of the patient
Summarizing hospital stay
Instructions for continuing care to all relevant caregivers
Preparation of discharge records, prescriptions, and referral forms
Total time spent (in minutes): 45
Anticipated Discharge: Today
Subjective/Interval History
-
Date of Service: May 23, 2023
Pt looks better
Objective Data
-
Labs:
Laboratory Results
05/23/23
05:59
WBC 7.6
Hgb 8.5 L
Hct 25.9 L
Plt Count 259
Sodium 137
Potassium 4.0
Chloride 101
Carbon Dioxide 24
BUN 11
Creatinine 0.4 L
Glucose 87
Calcium 8.6
Total Bilirubin 0.3
AST 29
ALT 28
Alkaline Phosphatase 153 H
Vital Signs:
Vital Signs
Temp Pulse Resp BP Pulse Ox
98.5 F 80 17 135/63 96
05/23/23 07:50 05/23/23 07:50 05/23/23 07:50 05/23/23 07:50 05/23/23 07:50
I&O
05/22/23 05/23/23 05/24/23
06:59 06:59 06:59
Intake Total 220 / 220 120 / 120
Output Total 70 / 70 60 / 60
Balance 150 / 150 60 / 60
Review of Systems
-
History Source: Patient
Constitutional: Denies Fever (100.2 05/20/2023 evening, otherwise afebrile)
EENT: Reports No Symptoms Reported
Respiratory: Reports No Symptoms
Cardiac: Reports No Symptoms
Genitourinary: Reports No Symptoms
Skin: Reports Rash
Physical Exam
-
General: Well Developed, Well Nourished, No Apparent Distress and Appears Chronically Ill
HEENT: Normocephalic, Atraumatic and Moist Mucous Membranes
Respiratory: Clear to Auscultation; Negative Wheezes, Rales or Rhonchi
Cardiac: Regular Rhythm and S1/S2
GI: Soft, Nontender and Nondistended
Skin: Rash (left upper chest wall erythema has decreased significantly, mild tenderness has also decreased)
Neuro: Awake, Alert and Oriented
--- NOTE | 2023-05-23 14:21 | W.PN.PLAS ---
Today's Communication
-
Appropriate for discharge with VN
Drains will remain for 1-2 weeks
abx per ID
Progress Note
Subjective Data
Doing well, denies shortness of breath, pain well-controlled
Subjective: Tolerating Regular Diet and Ambulatory
Objective Data
Vital Signs
Temp Pulse Resp BP Pulse Ox
98.5 F 80 17 135/63 96
05/23/23 07:50 05/23/23 07:50 05/23/23 07:50 05/23/23 07:50 05/23/23 07:50
Intake and Output
05/22/23 05/23/23 05/24/23
06:59 06:59 06:59
Intake Total 220 / 220 120 / 120
Output Total 70 / 70 60 / 60
Balance 150 / 150 60 / 60
Intake:
Oral fluids 120 / 120 120 / 120
IV fluids (Total) 100 / 100
Normosl 100 / 100
Output:
Drain Output (Total) 70 / 70 60 / 60
Left Breast 30 / 30 15 / 15
Right Breast 40 / 40 45 / 45
Other:
Number of approximated SMALL 1 2
amounts of urine
Number of approximated MODERATE 3
amounts of urine
Number of approximated LARGE 1
amounts of urine
physical exam:
No acute distress
No increased work of breathing
Bilateral breast incisions with routine healing, dressings in place
Bilateral KIM drain serosanguineous with appropriate output
Lab Results
05/23/23 05:59
05/23/23 05:59
Microbiology Results
05/18/23 12:10 Blood/Venous Blood Culture - Final
No Growth - Final Report
05/18/23 11:23 Blood/Venous Blood Culture - Final
No Growth - Final Report
05/21/23 15:30 Breast - Left Wound Culture - Preliminary
No growth
05/21/23 15:30 Breast - Left Gram Stain - Preliminary
05/21/23 15:30 Breast - Left Tissue Culture - Preliminary
NO GROWTH
05/21/23 15:30 Breast - Left Gram Stain - Final
05/21/23 15:30 Breast - Left Anaerobic Culture - Preliminary
Culture pending. Anaerobic cultures are examined after 3
days incubation. Additional information to follow.
Assessment / Plan
Status post left breast infection, concern for implant involvement, underwent bilateral removal of silicone gel implants with capsulectomy
Antibiotics per ID
KIM drain management
Pain control
[2023-05-23 15:46] VITALS: BP 143/72
--- NOTE | 2023-05-23 16:28 | VNURNOTE ---
Home Health Liaison spoke with patient's spouse Tera by phone at 1620 to discuss [facility] nurse visits, schedule and homebound status. Patient is agreeable and understands that visits at home will be 2-3 x per week to assess and teach medical
management and KIM drain care.
Tera is aware that [facility] will contact them for start of care in 1-2 days after discharge from . Tera is able to assist with drain care.
[facility] referral completed in [facility]
--- NOTE | 2023-05-23 16:50 | W.DS.TRANS ---
DC Summary - [facility]
-
Discharge Instructions:
Discharge Diagnosis/Procedures Infected breast prosthesis
Diet No restrictions
Activity No strenuous activity
Driving Restrictions Not until seen by your Dr
Bathing Restrictions OK to Shower
Other Services VN
Wound Care Strip and record drain output twice daily
Instructions:
Stand-Alone Forms:
Changes to Home Medications: Yes
Discharge Medications:
DC Medications w/original date entered in [employer]
cholecalciferol (vitamin D3) 25 mcg (1,000 unit) tablet (Vitamin D3) 25 mcg PO DAILY Supplement 03/26/23
duloxetine 60 mg capsule,delayed release (Cymbalta) 60 mg PO DAILY@1230 depression 03/26/23
pregabalin 50 mg capsule (Lyrica) 100 mg PO HS chronic pain/neuropathy 04/16/23
acetaminophen 500 mg tablet (Tylenol Extra Strength) 1,000 mg PO QIDPRN PRN mild pain 05/16/23
calcium carbonate 500 mg calcium (1,250 mg) tablet 500 mg PO DAILY Supplement 05/16/23
ondansetron 4 mg disintegrating tablet 4 mg PO Q6HPRN PRN nausea from chemo 05/16/23
sacituzumab govitecan-hziy 180 mg intravenous solution (Trodelvy) 0 mg IV UD breast cancer 05/16/23
doxycycline hyclate 100 mg tablet 100 mg PO BID #20 tabs 05/23/23
Home Medication Changes
Doxycycline for 10 days
Pending Results: Yes
Additional Pending Results:
final culture results
== END 2023-05-23 18:07 | disposition home health service (06) | DRG 907 ==
LOC: 3 WEST ACU 18:44
PROVIDERS: Internal Medicine; Physician Assistant; ADMITTING PHYSICIAN Hospitalist; ATTENDING PHYSICIAN Internal Medicine; CONSULT PHYSICIAN Internal Medicine Infectious Disease; CONSULT PHYSICIAN Surgery Plastic and Reconstructive Surgery; EMERGENCY PHYSICIAN Student in an Organized Health Care Education/Training Program; FAMILY PHYSICIAN General Practice; OTHER PHYSICIAN Internal Medicine Hematology & Oncology
PROC: 0HPT0JZ Removal of Synthetic Substitute from Right Breast, Open Approach (ICD-10-PCS; 2023-05-21)
PROC: 0HPU0JZ Removal of Synthetic Substitute from Left Breast, Open Approach (ICD-10-PCS; 2023-05-21)
DX: T85.79XA Infection and inflammatory reaction due to other internal prosthetic devices, implants and grafts, initial encounter (principal); A41.9 Sepsis, unspecified organism; C78.00 Secondary malignant neoplasm of unspecified lung; C79.51 Secondary malignant neoplasm of bone; C79.89 Secondary malignant neoplasm of other specified sites; E87.1 Hypo-osmolality and hyponatremia; Y83.1 Surgical operation with implant of artificial internal device as the cause of abnormal reaction of the patient, or of later complication, without mention of misadventure at the time of the procedure; N61.0 Mastitis without abscess; E55.9 Vitamin D deficiency, unspecified; G62.9 Polyneuropathy, unspecified; I89.0 Lymphedema, not elsewhere classified; D69.6 Thrombocytopenia, unspecified; S14.3XXA Injury of brachial plexus, initial encounter; Y83.8 Other surgical procedures as the cause of abnormal reaction of the patient, or of later complication, without mention of misadventure at the time of the procedure; C50.912 Malignant neoplasm of unspecified site of left female breast; G89.29 Other chronic pain; T36.1X5A Adverse effect of cephalosporins and other beta-lactam antibiotics, initial encounter; L27.0 Generalized skin eruption due to drugs and medicaments taken internally; Z11.52 Encounter for screening for COVID-19; Z17.1 Estrogen receptor negative status [ER-]; Z79.899 Other long term (current) drug therapy; Z85.3 Personal history of malignant neoplasm of breast; Z87.891 Personal history of nicotine dependence; Z90.13 Acquired absence of bilateral breasts and nipples; Z92.3 Personal history of irradiation
CPT/HCPCS: 88304; 88305; 88311; 71275; 76700; 80053; 80202; 82550; 85025; 85027; 86705; 86706; 86709; 86803; 87040; 87070; 87075; 87176; 87205; 87340; 87389; 87502; 87811; 96365; 96366; 99285; J0878; Q9967

== ENCOUNTER → 2023-09-23 08:26 | Outpatient (REF) | payer BC, SELFPAY ==
[2023-09-23 08:49] VITALS: BP 126/81; BP_SYST 88
[2023-09-23] MEDS: LEVAQUIN 100 IV (09:50)
[2023-09-23 10:30] VITALS: BP 125/92; BP_SYST 83
[2023-09-23 10:45] VITALS: BP 126/70; BP_SYST 82
[2023-09-23 10:50] VITALS: BP 126/70
== END ==
LOC: RADI 08:26
PROVIDERS: ATTENDING PHYSICIAN Internal Medicine Hematology & Oncology
DX: C50.412 Malignant neoplasm of upper-outer quadrant of left female breast (principal); C79.51 Secondary malignant neoplasm of bone
CPT/HCPCS: 36561; 76937; 77001; 99152; 99153; C1788

== ENCOUNTER → 2024-02-19 12:20 | Outpatient (REF) | payer BC, SELFPAY ==
[2024-02-19 12:45] VITALS: BP 135/53; BP_SYST 115
[2024-02-19 13:35] VITALS: BP 135/87
== END ==
LOC: RADI 12:20
PROVIDERS: ATTENDING PHYSICIAN Internal Medicine Hematology & Oncology; FAMILY PHYSICIAN Family Medicine
DX: C50.919 Malignant neoplasm of unspecified site of unspecified female breast (principal); J91.0 Malignant pleural effusion
CPT/HCPCS: 88305; 32555; 71045; 88112; 88341; 88342

== ENCOUNTER 2024-04-08 07:30 | Inpatient (IN) | payer OTHER, SELFPAY ==
[2024-04-08] VITALS (22 sets, daily range): BP systolic 109–145; BP diastolic 56–99; PULSE 81; O2SAT 96; BMI 29.2
[2024-04-08 04:26] LABS: COVID-19 Antigen Positive (Negative)
[2024-04-08 05:19] LABS: % Basophils 0.3 % (0-2); % Eosinophils 0.5 % (0-6); % Immature Granulocytes 0.8 % (0-0.5); % Lymphocytes 6.1 % (20.5-51.1); % Neutrophils 88.3 % (42.2-75.2); Absolute Immature Granulocytes 0.1 10^3/uL (0-0.05); Absolute Lymphocytes 0.4 10^3/uL (1.2-3.4); Absolute Monocytes 0.3 10^3/uL (0.1-0.6); Absolute Neutrophils 5.5 10^3/uL (1.4-6.5); Hematocrit 30.2 % (37.0-47.0); Hemoglobin 9.8 g/dL (12.0-16.0); Mean Corp Hgb Conc. 32.5 g/dL (33.0-37.0); Mean Corpuscular Hgb 28.3 pg (27.0-31.0); Mean Corpuscular Volume 87.3 fL (81.0-99.0); Mean Platelet Volume 9.6 fL (7.4-10.4); Nucleated Red Blood Cells % 0 %; Platelet Count 110 10^3/uL (130-400); Red Blood Cell Count 3.46 10^6/uL (4.20-5.40); Red Cell Dist. Width 18.9 % (11.5-14.5); White Blood Cell Count 6.2 10^3/uL (4.8-10.8)
--- NOTE | 2024-04-08 05:26 | ED.GENMED ---
History of Present Illness
General
Chief Complaint: Fall
Source: patient and spouse
Exam Limitations: none
Time Seen by Provider: 04/08/24 05:19
Nursing documentation reviewed up to this point in time: agreed with
History of Present Illness
History of Present Illness:
This a pleasant 54-year-old female presents to the emergency department after falling. She states that she fell this evening. She was feeling weak and fell backwards. She hit her head but did not lose consciousness. She is not on any blood
thinners. She does report mild headache. Patient has advanced breast cancer and has been treated by stella and Dr. Hortencia Marx. Patient states that the chemotherapy has been making her weak. She has also had radiation which she sustained
left-sided nerve damage from what is thought to be radiation damage. Tonight she developed a fever and felt rundown so she came into the emergency department via ambulance. Patient denies any new pain other than the headache. She has had
radiation fibrosis of the lung and typically has some shortness of breath but states that tonight was very slightly worse.
Review of Systems
Review of Systems
Allergies reviewed?: Yes
Other source history: family
All Other Systems: ROS reviewed and negative except as documented in HPI and ROS
Constitutional: Reports fatigue and sleep disturbance
EENT: Reports no symptoms
Respiratory: Reports no symptoms
Cardiac: Reports no symptoms
ABD/GI: Reports no symptoms
: Reports no symptoms
Musculoskeletal: Reports no symptoms
Skin: Reports no symptoms
Neurological: Reports no symptoms
Endocrine: Reports no symptoms
Hematologic/Lymphatic: Reports no symptoms
Psychiatric: Reports anxiety
Phy Exam
General Physical Exam
General Presentation: moderate distress
General age: appears stated age
General Skin: warm and dry
General Habitus: elderly and frail
General Mental: alert and usual mental status
General Hydration: appears well hydrated
ENT Exam
ENT Exam: EOMI, pharynx normal, neck supple and normocephalic
Eye Exam
Eye Exam: PERRL, cornea clear and conjunctiva normal
Cardiovascular Exam
Cardiovascular Exam: regular rate/rhythm and other (Port in the right anterior chest wall. Accessed by IV team)
Pulmonary Exam
Pulmonary Exam: lungs clear, no respiratory distress, no rales, no crackles, no rhonchi, no stridor, no wheezing and no cough
Gastrointestinal Exam
Gastrointestinal Exam: normal bowel sounds, non tender, soft, no organomegaly, no pulsatile mass and non distended
Neurological Exam
Neurological Exam: alert, oriented x3, no motor deficits and speech normal
Musculoskeletal Exam
Musculoskeletal Exam: full ROM and neuro vasc intact
Skin Exam
Skin Exam: normal color, warm/dry, no rash and no petechia
Psychiatric Exam
Psychiatric Exam: labile
Course
Orders/Labs/Results
Orders:
Orders
04/08/24 03:54
Electrocardiogram (*1) Urgent
Reason for Study: Fatigue / Weakness
04/08/24 03:55
EKG- Treatment ONCE
04/08/24 04:09
COVID-19 Antigen Urgent
Source: Nasal Swab
Influenza A+B Rapid Molecular Urgent
OLGA Source: Nasal Swab
Specimen Description:
04/08/24 05:01
CMP [Comprehensive Metabolic Panel] Urgent
Complete Blood Count/With Diff Urgent
04/08/24 05:20
CT Head W/o Iv Contrast Urgent
Comment:
Reason For Exam: fall
04/08/24 05:31
Morphine Sulfate 4 mg IV NOW STA
Ondansetron Injectable [Zofran] 4 mg IV NOW STA
04/08/24 05:39
Acetaminophen [Tylenol] 650 mg PO NOW STA
Abnormal Lab Results
04/08/24 04/08/24
04:09 05:01
RBC 3.46 L 10^6/uL
(4.20-5.40)
Hgb 9.8 L g/dL
(12.0-16.0)
Hct 30.2 L %
(37.0-47.0)
MCHC 32.5 L g/dL
(33.0-37.0)
RDW 18.9 H %
(11.5-14.5)
Plt Count 110 L 10^3/uL
(130-400)
Abs Immat Gran (auto) 0.1 H 10^3/uL
(0-0.05)
Absolute Lymphs (auto) 0.4 L 10^3/uL
(1.2-3.4)
Immature Gran % 0.8 H %
(0-0.5)
Neutrophils % 88.3 H %
(42.2-75.2)
Lymphocytes % 6.1 L %
(20.5-51.1)
Sodium 132 L mmol/L
(135-145)
Creatinine 0.4 L mg/dL
(0.6-1.0)
Glucose 101 H mg/dl
(70-99)
SARS-CoV-2 Antigen Positive A
(Negative)
04/08/24 05:01
04/08/24 05:01
Vital Signs
Initial and Last Documented VS:
Initial Vital Signs
Pulse Resp BP Pulse Ox
94 16 142/77 98
04/08/24 03:51 04/08/24 03:51 04/08/24 03:51 04/08/24 03:51
Last Documented Vital Signs
Temp Pulse Resp BP Pulse Ox
101.1 F H 103 22 125/70 94
04/08/24 06:27 04/08/24 06:27 04/08/24 06:27 04/08/24 06:27 04/08/24 06:27
*EKG
Interpreted by ED Provider?: Yes
Interpretation: abnormal
Comparison EKG: changes noted
Heart Rate: 105
Rate: tachycardiac
Rhythm: sinus tachycardia
[place]: normal axis
QRS Pattern: normal QRS
Ischemia: no ischemia
*Leisure Studies Professor Interpretation
Rate: normal
Interpretation: normal
Rhythm: sinus
*Critical Care Note
Total Time (30-74mins, 75-104mins- exclusive of procedures): Not Applicable
Data Reviewed
Review of Other/Old Records Reveals: Labs
Update Note
Update Note:
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
ED Attending Note
-
Portions of this chart may have been created with voice recognition software.� Occasional wrong word or��sound alike� substitutions may have occurred due to the inherent limitations of voice recognition software.
Discharge Plan
Departure
Patient Disposition: Admit
Date of Disposition: 04/08/24
Time of Disposition: 05:47
Presentation/result/management discussed w/ accepting MD/DO: Hospitalist
Condition: Serious
Discharge Problem:
left frontal lobe infarct, COVID, Weakness, Frequent falls, Breast cancer
Prescriptions:
No Action
duloxetine [Cymbalta] 60 mg Capsule,Delayed Release(Dr/Ec)
60 mg PO DAILY@1230
cholecalciferol (vitamin D3) [Vitamin D3] 25 mcg (1,000 unit) Tablet
25 mcg PO DAILY
acetaminophen [Tylenol Extra Strength] 500 mg Tablet
1,000 mg PO QIDPRN PRN (Reason: mild pain)
calcium carbonate 500 mg calcium (1,250 mg) Tablet
500 mg PO DAILY
ondansetron 4 mg Tablet,Disintegrating
4 mg PO Q6HPRN PRN (Reason: nausea from chemo )
Trodelvy 180 mg Recon Soln
0 mg IV UD
Rx Instructions:
infusion weeks 1 2 3 and then 1 week off, patient currently on week off that started on 05/13/23
hydrocodone-acetaminophen 5-325 mg Tablet
1 tab PO BID PRN (Reason: pain)
amitriptyline 25 mg Tablet
25 mg PO HS
Referrals:
Marcus Campa MD [Family Provider] -
Interventions
Interventions:
*Risk Screen - Suicide Last Done: 04/08/24 03:55
*General Assessment Last Done: 04/08/24 03:55
*Neglect/Abuse Screening Last Done: 04/08/24 03:55
*ED COVID-19 Vaccine History Last Done: 04/08/24 03:55
ED- Cardiac Assessment Last Done: 04/08/24 05:21
ED-Musculoskeletal Assessment Last Done: 04/08/24 05:21
ED- Neurological Assessment Last Done: 04/08/24 05:21
ED- Pulmonary Assessment Last Done: 04/08/24 05:21
ED-Skin Assessment Last Done: 04/08/24 05:24
Discharge Date and Time
Print Language: BULGARIAN
[2024-04-08] MEDS: MORPHINE SULFATE 4 MG IV (05:36)
[2024-04-08] MEDS: ZOFRAN 4 MG IV ×2 (05:36→10:48)
[2024-04-08] MEDS: TYLENOL 650 MG PO ×2 (05:41→08:36)
[2024-04-08 05:48] LABS: ALT (SGPT) 13 U/L (0-35); AST (SGOT) 23 U/L (14-36); Albumin 4.4 g/dl (3.5-5.0); Alkaline Phosphatase 92 U/L (38-126); Blood Urea Nitrogen 17 mg/dl (7-17); Calcium 8.7 mg/dl (8.4-10.2); Carbon Dioxide 23 mmol/L (22-30); Chloride 98 mmol/L (98-107); Estimated Creatinine Clearance 113 ml/min; Glucose 101 mg/dl (70-99); Potassium 3.6 mmol/L (3.5-5.1); Sodium 132 mmol/L (135-145); Total Bilirubin 0.4 mg/dl (0.2-1.3); Total Protein 7.3 g/dl (6.3-8.2); eGFR > 60.00
--- NOTE | 2024-04-08 06:14 | HPS.HSE ---
Family Physician
-
Family Physician: Macrus Campa MD
Chief Complaint
-
Fall and weakness
History of Present Illness
This is a 54-year-old female who has past medical history most notable for triple negative breast cancer status post surgery and currently with recurrence of disease on chemotherapy who presents to the emergency department with multiple falls and
found to have COVID infection.
Patient history is notable for triple negative breast cancer that was diagnosed in 2014 with metastasis to the hip lungs status post double mastectomy and subsequent implant placement with recurrence in 2018 complicated by neuropathy and weakness of
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 She last
received chemo 3 days ago.
Patient reported that she was having paresthesias and pain on the left upper extremity which has been chronic and secondary to her radiation it was thought or possibly could be secondary to nerve impingement. Patient stated that she got injection
in her neck and since then she has had weakness. On Saturday she had a fall at home. At the oncology clinic she also had a fall. And then on Saturday patient had another fall while trying to get to the bathroom at home. She states that legs just
give way. She denies feeling dizzy or lightheaded. She denies striking her head. He denies any chest pain or palpitations. She denies feeling short of breath. She denies any cough. No known sick contacts.
In the emergency department she was febrile 200.4, blood pressure was stable at 136/81 with a pulse of 105, sats ranged from 96 to 99% on room air. ECG shows sinus tachycardia. Stated COVID test was positive, CBC was stable with a hemoglobin of
9.8 normal WBCs and a platelet count of 110. Electrolytes are pending at this time. CT of the head showing acute non-hemorrhagic infarct in the left frontal lobe.
Medical History
Past Medical History
Past Medical History: Reports Cancer (Triple negative breast cancer with metastasis on chemotherapy, status post double mastectomy complicated by recurrence)
Past Surgical History: Reports Other (Double mastectomy, bilateral breast reconstruction, excision of implant capsules)
Social History
Tobacco: Former Smoker
Alcohol: None
Drug: None
Personal:
Living: With Family
Family History
Family History: Not pertinent
Allergies / Home Medications
Allergies reflects when Allergies were last updated in [facility].
Home Medications with original date entered in [facility]
Allergy/Medication List:
Allergies
Allergy/AdvReac Type Severity Reaction Status Date / Time
acetaminophen [From Percocet] Allergy Intermediate Nausea / Verified 04/08/24 03:51
Vomiting
cefazolin Allergy Intermediate Rash Verified 04/08/24 03:51
oxycodone [From Percocet] Allergy Intermediate Nausea / Verified 04/08/24 03:51
Vomiting
Vancomcycin AdvReac Sharon Uncoded 04/08/24 03:51
syndrome;
itchy rash
despite
premed w/
Benadry
Home Medications
duloxetine 60 mg capsule,delayed release (Cymbalta) 60 mg PO DAILY@1230 depression 03/26/23
acetaminophen 500 mg tablet (Tylenol Extra Strength) 1,000 mg PO QIDPRN PRN mild pain 05/16/23
amitriptyline 25 mg tablet 25 mg PO HS 02/19/24
Review of Systems
-
History Source: Patient and Family
Constitutional: Reports Fatigue
EENT: Reports No Symptoms
Respiratory: Reports No Symptoms
Cardiac: Reports No Symptoms
Abdomen/GI: Reports No Symptoms
: Reports No Symptoms
Musculoskeletal: Reports Muscle Pain
Skin: Reports No Symptoms
Neurological: Reports Weakness
Endocrine: Reports No Symptoms
Hematologic/Lymphatic: Reports No Symptoms
Psych: Reports No Symptoms
Physical Exam
Vital Signs
Vital Signs
Temp Pulse Resp BP Pulse Ox
100.4 F H 103 18 136/81 99
04/08/24 03:55 04/08/24 05:15 04/08/24 04:45 04/08/24 05:00 04/08/24 05:15
Physical Exam
General: Well Developed, Appears in Distress and Appears Chronically Ill
HEENT: NormoCephalic, Anicteric, Moist mucous membranes, Atraumatic, PERRLA and [place] Conjunctivae
Respiratory: Clear
Cardiac: S1/S2, Regular Rhythm and Tachycardia
Breast: Other (Bilateral mastectomies)
GI: Soft, Non Tender, Non Distended and Normal Bowel Sounds
Rectal: Deferred by Provider
Genito-urinary: Deferred by me
Musculoskeletal: No Clubbing, No Cyanosis and No Edema
Skin: Warm
Neuro: AO x 3, Cranial Nerves Intact and Other (1/5 weakness of LUE. 5/5 RUE. 2/5 LLE, 4/5 RLE); No Slurred Speech, Facial Droop or Tremors
Hematologic/Lymphatic: No Lymphadenopathy
Psych: Calm
Laboratory Results
-
04/08/24 05:01
04/08/24 05:01
Laboratory Results
Total Bilirubin 0.4 mg/dl (0.2-1.3) 04/08/24 05:01
AST 23 U/L (14-36) 04/08/24 05:01
ALT 13 U/L (0-35) 04/08/24 05:01
Alkaline Phosphatase 92 U/L (38-126) 04/08/24 05:01
Data Reviewed
-
CT Scan: Report Reviewed by me
Medical Tests (Nuc Med, Echo, EKG etc): Image Personally Visualized and interpreted
Impression/Plan
-
IMPRESSION:
54 y.o female with triple negative breast cancer s/p mastectomy currently on carboplatin and keytruda last infusion 3 days ago, presents to ED after having falls since saturday subsequent to a cervical injection for painful parasthesias of the left
upper extremity which has been paralysed secondary to radiation treatments. She is found to have COVID and is febrile and slightly hyponatremic. The left leg seems profoundly weak and unequal or unilateral weakness likely cannot be explained by
covid. No neck pain or mass
PLAN:
1. CVA - Subacute Left frontal lobe infarct. No clear risk factors. Metastatic disease on keytruda and carboplatin. Left leg weakness. NIHSS = 2
- admit to telemetry
- aspirin/statin, plavix pending neuro
- permissive hypertension, not on any medications
- neurochecks q 6 hours
- mri brain and c-spine w/o contrast
- mra [place] and neck
- echo
- treatment for covid
- pt ot evaluation
- neurology consult
2. COVID 19 - COVID +, fever, weakness and h/o immunosupression.
- no oxygen requirement so no steroids needed
- given malignancy, will start Remdesivir for high risk patient if plavix required per neurology, if no plavix then paxlovid
- gentle hydration
- supportive measures with antipyretics, antitussives and pain control
- monitor o2
3. Left leg weakness - Not clearly explained by the left frontal lobe infarct. No neck pain but began s/p cervical injection
- f/u mri brain and c-spine for possible mets/syrinx
- pt ot as above
DVT PPX - lovenox sq
Code status - full code
--- NOTE | 2024-04-08 07:37 | CON.NEURO ---
Addendum entered and electronically signed by Abdifatah Isaac MD 04/08/24 10:16:
Note: Patient had beating horizontal near continuous eye movements with primary gaze
Original Note:
Neuro Assessment/Plan
Assessment
Acute onset left leg weakness in a patient with known metastatic breast cancer and now COVID-positive
Most likely patient has metastatic disease in brain with questionable subacute left frontal ischemic lesion
Patient was not a candidate for either tenecteplase or intra-arterial thrombectomy due to timeframe out of window
Plan
Check MRI brain with and without contrast as the patient likely has metastasis
Rehabilitation evaluations
Supportive care for COVID-19 as being provided
Continue newly initiated aspirin and reconsider if patient is not found to have ischemic lesions as the etiology
Consider initiation of dexamethasone if edema is the correct finding by MRI of brain
Consider neuroimaging of the entire spinal cord
Consider increase of patient's routine duloxetine for attempted improvement of pain control in her left upper extremity which is chronic pain presumed to be secondary to brachial plexopathy
Will follow peripherally
Consultation
Order
Date of Consultation: 04/08/24
Requesting Provider: Hospitalist
Reason for Consult: Left leg weakness
Subjective/Objective
Subjective Data
Date of Service: April 08, 2024
Currently right-handed
Patient presented to this hospital's emergency department after falling. According to medical report, patient did not strike her head and did not lose consciousness. Subsequently, the patient was found to have shortness of breath and positive
COVID-19 results. Patient was also described as having left leg weakness and an abnormal CT of the head prompting admission.
The patient has been receiving chemotherapy in the form of carboplatin and pembrolizumab. Patient was initiated on remdesivir although patient has not required oxygen or steroid use since presentation.
Patient indicated that she began experiencing a sudden onset of headache 4 days prior to presentation to the emergency department. This headache is described as continuous since that time and moderate in intensity. The headache is primarily
frontal and bitemporal in location without photophobia or phonophobia.
3 days ago, the patient began experiencing sudden onset left leg dysfunction which has been persistent and also described by the patient as mild in nature. The patient did not feel that she had a significant change in gait until the following day
which was followed a day after that (the day of admission) by the patient falling as listed above.
The patient has chronic left upper extremity dysfunction which has been attributed to previously diagnosed brachial plexopathy in part due to radiation from left breast cancer treatment. The day prior to the patient's admission, she underwent what
she describes as a cervical nerve block leading to an hour later having difficulty with gait.
Objective Data
Vital Signs
Temp Pulse Resp BP Pulse Ox
38.3 C H 100 19 118/76 93
04/08/24 07:34 04/08/24 07:00 04/08/24 07:00 04/08/24 07:00 04/08/24 07:00
Lab Results
04/08/24 05:01
04/08/24 05:01
Sodium 132 mmol/L (135-145) L 04/08/24 05:01
Potassium 3.6 mmol/L (3.5-5.1) 04/08/24 05:01
BUN 17 mg/dl (7-17) 04/08/24 05:01
Glucose 101 mg/dl (70-99) H 04/08/24 05:01
Calcium 8.7 mg/dl (8.4-10.2) 04/08/24 05:01
Patient Allergies
acetaminophen [From Percocet] Allergy (Intermediate, Verified 04/08/24 03:51)
Nausea / Vomiting
cefazolin Allergy (Intermediate, Verified 04/08/24 03:51)
Rash
oxycodone [From Percocet] Allergy (Intermediate, Verified 04/08/24 03:51)
Nausea / Vomiting
Vancomcycin Adverse Reaction (Uncoded 04/08/24 03:51)
Sharon syndrome; itchy rash despite premed w/ Benadry
CVA Assessment
Onset of Stroke Symptoms
Onset of symptoms known: No
Date of onset of symptoms: 04/04/24
Time pt last seen normal is known: No
Date last time pt seen normal: 04/04/24
NIH Stroke Score
Level of Consciousness: 0 - Alert
LOC Questions: 0-Answers both correctly
LOC Commands: 0-Performs both correctly
Best Horizontal Gaze: 0-Normal
Visual Ricardo: 0=Normal, no visual loss
Facial Palsy: 0=Normal, symmetrical
Motor - Right Arm: 0=No drift 10 seconds
Motor - Left Arm: 4=No movement
Motor - Right Le-Drift < 5 seconds
Motor - Left Le-Drift < 5 seconds
Limb Ataxia: 0-Absent
Sensation: 0-Normal
Best Language: 0-No aphasia
Dysarthria: 0-Normal
Extinction and Inattention: 0-No abnormality
Total Score:: 6
Tenecteplase Contraindications
Inclusion and Exclusion criteria reviewed: Yes
Review of Systems
-
History Source: Patient
All other systems: Reviewed and negative
Respiratory: Negative Trouble Breathing
Cardiac: Negative Chest Pain
Abdomen/GI: Negative Incontinence of Stool
Genitourinary: Negative Incontinence
Musculoskeletal: Neck Pain; Negative Back Pain
Neuro: Headache; Negative Dizzy
Physical Exam
-
General: No Apparent Distress and Older than Stated Age
Eyes: Round OU, [place] Conjunctivae and No Ptosis
HEENT: Anicteric and Moist Mucous Membranes
Neck: Full Range of Motion
Respiratory: No Dyspnea
Cardiac: No JVD
GI: Non-distended
Skin: Other (Right sided chest port)
Extremities: No Clubbing, No Cyanosis and No Edema
Psych: Intact Judgement/Insight
Extended Neurological Exam
Mood & Affect: Mood Unremarkable and Affect Unremarkable
Attention Span & Concentration: Awake, Alert, Interactive and No Difficulty with 2 Step Request
Memory: Unremarkable
Tremor: Hand Tremor Absent and Head Tremor Absent
Speech: Quality Unremarkable and Quantity Unremarkable
Cranial Nerve II: Left Eye: Pupillary Size Unremarkable and Visual Ricardo Intact
Cranial Nerve II: Right Eye: Pupillary Size Unremarkable and Visual Ricardo Intact
Cranial Nerves III, IV, : Extraocular Movement: Extraocular Movement Full in all Directions
Cranial Nerve VII: Facial Symmetry: Normal Facial Symmetry
Cranial Nerve VIII: Hearing: Unremarkable Hearing to Normal Conversational Volume
Cranial Nerve XI: Shoulder Shrug: Unremarkable
Muscle Strength, Overall: Reduced (Bilateral lower extremities with difficulty maintaining legs off of bed for greater than 3 seconds) and Absent (Left upper extremity)
Muscle Bulk & Tone: Bulk Unremarkable and Tone Unremarkable
Pronator Drift: Drift in Left Lower Extremity, Drift in Right Lower Extremity and Unable to Assess (Left upper extremity); Negative Drift in Right Upper Extremity
Touch Sensation: Unremarkable
Coordination: Irjudi-twxt-duypnl Testing Unremarkable (On the right) and Unable to Assess (On the left)
Gait & Station: Unable to Assess
Data Reviewed
-
CT-A: Report Reviewed
CT Head: Report Reviewed and Image Reviewed
Labs: Report Reviewed
Reviewed with: Physician and Patient
Old Records: Summarized
Medications
-
Home Medications
�Medication �Instructions �Recorded
cholecalciferol (vitamin D3) 25 25 mcg PO DAILY Supplement 03/26/23
mcg (1,000 unit) tablet (Vitamin
D3)
duloxetine 60 mg capsule,delayed 60 mg PO DAILY@1230 depression 03/26/23
release (Cymbalta)
acetaminophen 500 mg tablet 1,000 mg PO QIDPRN PRN mild pain 05/16/23
(Tylenol Extra Strength)
calcium carbonate 500 mg PO DAILY Supplement 05/16/23
ondansetron 4 mg disintegrating 4 mg PO Q6HPRN PRN nausea from 05/16/23
tablet chemo
sacituzumab govitecan-hziy 180 mg 0 mg IV UD breast cancer 05/16/23
intravenous solution (Trodelvy)
amitriptyline 25 mg tablet 25 mg PO HS 02/19/24
hydrocodone 5 mg-acetaminophen 325 1 tab PO BID PRN pain 02/19/24
mg tablet
Past History
Past History
ED Past Medical History: Cancer (Triple negative breast 2015 metastases lung and hip) and Other (Peripheral neuropathy, G4, P3; COVID 2020, March 2024)
ED Past Surgical History: Other (Double mastectomy with implants, lung node biopsy)
Social History
Tobacco: Former smoker
Alcohol: Occasional
Personal:
Living: with family
Family History
Family History: Other (Reviewed and noncontributory)
[2024-04-08] MEDS: LOW STRENGTH ASPIRIN 81 MG PO (08:41)
--- NOTE | 2024-04-08 09:24 | CON.ONC ---
Impression
Impression
DRAPERY SEAMSTRESS infarct versus metastasis, suspect latter.
Metastatic triple negative breast cancer (TNBC) with widespread metastatic disease currently on fourth line therapy
Plan
Plan
Await MRI. If metastatic disease identified, initiate dexamethasone 6 mg Q6 hours for treatment of intracranial swelling.
If metastatic disease identified, hold chemotherapy and initiate a course of palliative DRAPERY SEAMSTRESS radiation. Patient was also being evaluated for restaging PET CT scan as outpatient.
If etiology is vascular stroke/infarctions, this could be related to the hypercoagulability of malignancy and anticoagulation could be appropriate. Will await for the further imaging.
Patient History
History of Present Illness
CC: Weakness and falling
HPI: 54-year-old female with TNBC metastatic breast cancer currently undergoing fourth line systemic therapy with [place]/Keytruda which after PET scan 02/07/2024 revealed disease progression in lymph nodes in the neck and chest, left
lung, and T12 vertebral body. She had a malignant pleural effusion and underwent thoracentesis x 1250 cc on 02/18 with positive cytology. Previous most recent treatment on 04/06/2024 (cycle #3). She is plagued by chronic nerve pain in her neck and
left arm. She was treated with a left nerve block 03/31/2024. She follows with neurology.
She presented to [facility] emergency room following a fall. During her emergency room evaluation she was describing shortness of breath and was found to be positive COVID. Patient was also described as having left leg weakness and an abnormal CT of the
head prompting admission. Preliminary unenhanced head CT from the ER revealed: Large nonhemorrhagic acute/subacute left frontal lobe infarct with probable additional scattered chronic infarcts as described. An MRI of the brain was ordered and is
pending. Neurology was consulted. The suspicion is that this is not a vascular infarction but more likely represents limited to metastatic disease.
Past-Medical/Surgical History
PMH: Triple negative breast cancer with metastasis
PSH: Double mastectomy, bilateral breast reconstruction, excision of implant capsules
Social History
Tobacco: Former Smoker
Alcohol: None
Drug: None
Personal:
Living: With Family
Family History
Family History: Not pertinent
Patient Medication
�Medication �Instructions �Recorded �Confirmed �Last Taken �Type
cholecalciferol (vitamin D3) 25 25 mcg PO DAILY Supplement 03/26/23 04/08/24 02/19/24 History
mcg (1,000 unit) tablet (Vitamin
D3)
duloxetine 60 mg capsule,delayed 60 mg PO DAILY@1230 depression 03/26/23 04/08/24 02/18/24 History
release (Cymbalta)
acetaminophen 500 mg tablet 1,000 mg PO QIDPRN PRN mild pain 05/16/23 04/08/24 02/19/24 History
(Tylenol Extra Strength)
ondansetron 4 mg disintegrating 8 mg PO Q6HPRN PRN nausea from 05/16/23 04/08/24 Unknown History
tablet chemo
amitriptyline 25 mg tablet 25 mg PO HS 02/19/24 04/08/24 02/18/24 History
ascorbic acid (vitamin C) 500 mg 500 mg PO DAILY 04/08/24 04/08/24 Unknown History
tablet (Vitamin C)
calcium carbonate 500 mg PO DAILY 04/08/24 04/08/24 Unknown History
darbepoetin maren in polysorbat 500 500 mcg SC Q3W 04/08/24 04/08/24 04/07/24 History
mcg/mL in polysorbate injection
syringe
eribulin 1 mg/2 mL (0.5 mg/mL) 2.6 mg IV UD 04/08/24 04/08/24 04/06/24 History
intravenous solution
lidocaine-prilocaine 2.5 %-2.5 % 1 applic topical DAILYPRN PRN port 04/08/24 04/08/24 Unknown History
topical cream access
loratadine 10 mg tablet (Claritin) 10 mg PO DAILYPRN PRN take day or 04/08/24 04/08/24 Unknown History
and after chemo treatment
pembrolizumab 25 mg/mL intravenous 200 mg IV Q3W 04/08/24 04/08/24 04/06/24 History
solution (Keytruda)
Active Medications
Generic Name Dose Route Start Last Admin
Trade Name Freq PRN Reason Stop Dose Admin
Acetaminophen 650 mg 04/08/24 07:36
Acetaminophen 650 Mg Rectal Suppository RECTAL 05/06/24 07:35
Q4HPRN PRN
MACKENZIE, mild pain, or temp >100.4F
Acetaminophen 650 mg 04/08/24 07:36 04/08/24 08:36
Acetaminophen 325 Mg Tablet PO 05/06/24 07:35 650 mg
Q4HPRN PRN Administration
MACKENZIE, mild pain, or temp >100.4F
Amitriptyline HCl 25 mg 04/08/24 22:00
Amitriptyline 25 Mg Tablet PO 05/06/24 21:59
HS JIGAR
Aspirin 81 mg 04/08/24 08:00 04/08/24 08:41
Aspirin 81 Mg Chewable Tablet PO 05/06/24 07:59 81 mg
DAILY JIGAR Administration
Atorvastatin Calcium 40 mg 04/08/24 18:00
Atorvastatin (Lipitor) 40 Mg Tablet PO 05/06/24 17:59
QPM JIGAR
Duloxetine HCl 60 mg 04/08/24 12:30
Duloxetine Delayed Release 60 Mg Capsule PO 05/06/24 12:29
DAILY@1230 JIGAR
Enoxaparin Sodium 40 mg 04/08/24 18:00
Enoxaparin Sodium 40 Mg/0.4 Ml Syringe SC 05/06/24 17:59
QPM JIGAR
Lorazepam 1 mg 04/08/24 08:19
Lorazepam 1 Mg Tablet PO 04/08/24 18:00
ONCE JIGAR
Magnesium Hydroxide 30 ml 04/08/24 07:36
Milk Of Magnesia 30 Ml Cup PO 05/06/24 07:35
HSPRN PRN
constipation
Ondansetron HCl 4 mg 04/08/24 07:36
Ondansetron 4 Mg/2 Ml Vial IV 05/06/24 07:35
Q6HPRN PRN
NAUSEA/VOMITING
Sodium Chloride 0 flush 04/08/24 09:00
Sodium Chloride 0.9% (Flush) Syringe IV 05/06/24 08:59
PER PROTOCOL JIGAR
Physical Exam
-
General: Comfortable and Appears Chronically Ill; Negative Respiratory Distress
HEENT: Negative Jaundice
Cardiology: Normal Sinus Rhythm, S1 and S2
Extremities: Other (Left upper arm weak, 1/5. 2/5 LLE)
Labs
Lab Results
WBC 6.2 10^3/uL (4.8-10.8) 04/08/24 05:01
RBC 3.46 10^6/uL (4.20-5.40) L 04/08/24 05:01
Hgb 9.8 g/dL (12.0-16.0) L 04/08/24 05:01
Hct 30.2 % (37.0-47.0) L 04/08/24 05:01
MCV 87.3 fL (81.0-99.0) 04/08/24 05:01
MCH 28.3 pg (27.0-31.0) 04/08/24 05:01
MCHC 32.5 g/dL (33.0-37.0) L 04/08/24 05:01
RDW 18.9 % (11.5-14.5) H 04/08/24 05:01
Plt Count 110 10^3/uL (130-400) L 04/08/24 05:01
MPV 9.6 fL (7.4-10.4) 04/08/24 05:01
Abs Immat Gran (auto) 0.1 10^3/uL (0-0.05) H 04/08/24 05:01
Absolute Neuts (auto) 5.5 10^3/uL (1.4-6.5) 04/08/24 05:01
Absolute Lymphs (auto) 0.4 10^3/uL (1.2-3.4) L 04/08/24 05:01
Absolute Monos (auto) 0.3 10^3/uL (0.1-0.6) 04/08/24 05:01
Absolute Eos (auto) 0.0 10^3/uL (0-0.7) 04/08/24 05:01
Absolute Basos (auto) 0.0 10^3/uL (0-0.2) 04/08/24 05:01
Immature Gran % 0.8 % (0-0.5) H 04/08/24 05:01
Neutrophils % 88.3 % (42.2-75.2) H 04/08/24 05:01
Lymphocytes % 6.1 % (20.5-51.1) L 04/08/24 05:01
Monocytes % 4.0 % (1.7-9.3) 04/08/24 05:01
Eosinophils % 0.5 % (0-6) 04/08/24 05:01
Basophils % 0.3 % (0-2) 04/08/24 05:01
Creatinine 0.4 mg/dL (0.6-1.0) L 04/08/24 05:01
Vital Signs
Vital Signs
Temp Pulse Resp BP Pulse Ox
101.0 F H 100 19 118/76 93
04/08/24 07:34 04/08/24 07:00 04/08/24 07:00 04/08/24 07:00 04/08/24 07:00
--- NOTE | 2024-04-08 09:28 | W.PN.HOSP.TC ---
Today's Communication/Plan
-
See plan
Assessment / Plan
Assessment / Plan
Impression:
Presentation with generalized fatigue, weakness and falls.
Concern for subacute CVA versus intracranial metastatic process
� Imaging/CT scan consistent with left frontal and right parietal hypodensities.
[id number] with fever and minimal respiratory symptoms (dry cough)
Conditions prior to admission:
Triple negative breast carcinoma recurrent and metastatic to the bone, lung, chest.
Status post bilateral mastectomies/implants
Ongoing systemic treatment with Keytruda and eribulin.
Right chest Chemo-Port in place
Left metastatic pleural effusion status post thoracentesis 02/19/2024.
Chronic anemia and thrombocytopenia secondary to chemotherapy.
Left upper extremity weakness secondary to neuropathy.
Plan:
Presentation with generalized weakness and falls at home.
Concern for subacute CVA versus intracranial metastatic process.
Exam and presentation with chronic left upper and lower extremity weakness, mild right lower extremity weakness
CT scan with a left frontal hypodensity,? Right parietal hypodensity
Differential diagnosis embolic CVA versus intracranial metastatic process
Additional imaging with MRI
Echocardiogram
Neurologic monitoring.
Initiated on aspirin and statin.
Febrile
COVID-19 positive
Reports no respiratory symptoms.
Check chest x-ray
Immunosuppressed state due to ongoing systemic treatment for carcinoma
Discussed with ID
Contemplating antiviral therapy
No clear indication for systemic steroids, although been under consideration pending neurologic imaging with concern for intracranial metastatic process
Triple negative breast carcinoma with metastatic process.
Ongoing chemotherapy.
Oncology consultation.
Anticipated Discharge: 24 - 48 hours
Subjective/Interval History
-
Date of Service: April 08, 2024
Objective Data
-
Labs:
Laboratory Results
04/08/24
05:01
WBC 6.2
Hgb 9.8 L
Hct 30.2 L
Plt Count 110 L
Sodium 132 L
Potassium 3.6
Chloride 98
Carbon Dioxide 23
BUN 17
Creatinine 0.4 L
Glucose 101 H
Calcium 8.7
Total Bilirubin 0.4
AST 23
ALT 13
Alkaline Phosphatase 92
Vital Signs:
Vital Signs
Temp Pulse Resp BP Pulse Ox
101.0 F H 100 19 118/76 93
04/08/24 07:34 04/08/24 07:00 04/08/24 07:00 04/08/24 07:00 04/08/24 07:00
Physical Exam
-
General: Well Developed and No Apparent Distress
HEENT: Normocephalic, Atraumatic and Moist Mucous Membranes
Respiratory: Clear to Auscultation
Cardiac: Regular Rhythm and S1/S2; Negative Murmur, Rub or Gallop
GI: Soft, Nontender, Nondistended and Normal Bowel Sounds; Negative Organomegaly
Rectal: Deferred by Provider
Musculoskeletal: No Clubbing, No Cyanosis and No Edema
Skin: Negative Rash
Neuro: Other (Left upper extremity weakness )
[2024-04-08 09:51] LABS: Glycohemoglobin (HgbA1c) 5.2 % (4.0-5.6)
[2024-04-08 11:02] LABS: Erythrocyte Sed Rate 8 mm/hour (0-20)
[2024-04-08] MEDS: CYMBALTA DELAYED RELEASE PO ×2 (14:08→14:18)
[2024-04-08] MEDS: TYLENOL PO (14:09)
[2024-04-08] MEDS: DECADRON 6 MG IV ×2 (14:51→21:10)
[2024-04-08] MEDS: OFIRMEV 100 IV (14:52)
--- NOTE | 2024-04-08 15:23 | PTOTSP ---
Dysphagia Evaluation
Oral/pharyngeal swallowing within functional limits for limited trials completed due to nausea. Will briefly assess with solids as able/appropriate. Cannot r/o silent aspiration. Patient may be at elevated risk given extensive brain mets. No CXR
available at this time. Family denied prior dysphagia signs/symptoms.
Recommend:
1. Continue diet as ordered (regular, thin)
2. Medications as best tolerated
3. Dysphagia tx f/u to assess with solids and determine if instrumental swallowing assessment warranted
4. Speech/language/cognitive evaluation as appropriate
[2024-04-08] MEDS: COMPAZINE 10 MG IV (15:40)
--- NOTE | 2024-04-08 15:54 | CON.ID ---
Consultation
-
Date/Time Consultation Requested: 04/08/24 9:22
Date/Time Consultation Performed: 04/08/24 15:55
Requesting Provider: Dr Hart
Performing Provider: Dr Camara
Reason for Consultation: covid infection, stroke
Chief Complaint / Past History
Chief Complaint
fall and weakness
History of Present Illness
Ms Morales is a 54 year old female with tripple negative breast cancer s/p double mastectomy 2014, currently with recurrence since 2018 on chemotherapy with neuropathy and wekaness of the L upper extremity. Also with pulm met on keytruda and
carboplatin. Last chemotherapy was 3 days before arrival. Noted new L leg weakness. 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 No cough, shortness of breath.
Patient reporting paresthesias and pain of the LUE which is chronic. had an injection into the neck and since then has noted weakness. Then developing falls outpatient - legs 'give way' without prodrome of dizziness or lightheadedness. No head
strike, palpitations or chest pain. No cough, shortness of breath or sick contacts.
In the emergency department she was febrile 100.4, blood pressure was 136/81, pulse of 105, sats ranged from 96 to 99% on room air. ECG shows sinus tachycardia. COVID test was positive, CBC was stable with a hemoglobin of 9.8 normal WBCs and a
platelet count of 110. Electrolytes are pending at this time. CT of the head showing acute non-hemorrhagic infarct in the left frontal lobe. She was seen by neurology, oncology, ID is asked to comment if there is utility to ARVs for covid.
Past History
Additional Past Medical History:
Triple negative breast cancer with metastasis on chemotherapy, status post double mastectomy complicated by recurrence
Additional Past Surgical History:
Double mastectomy, bilateral breast reconstruction, excision of implant capsules
Allergy History:
acetaminophen [From Percocet] Allergy (Verified 04/08/24 15:36)
Nausea / Vomiting
cefazolin Allergy (Verified 04/08/24 15:36)
Rash
oxycodone [From Percocet] Allergy (Verified 04/08/24 15:36)
Nausea / Vomiting
vancomycin Allergy (Verified 04/08/24 15:36)
Sharon syndrome; itchy rash despite premed w/ Benadry
Medications Reviewed: Yes
Social History
Tobacco: Former Smoker
Alcohol: None
Drug: None
Family History
Family History: Not Pertinent
Review of Systems
Review of Systems
General: Negative Fever or Chills
All systems: All other systems were reviewed and were negative (except as listed in HPI)
Vital Signs
Temp Pulse Resp BP Pulse Ox
98.5 F 91 17 110/65 98
04/08/24 11:08 04/08/24 12:00 04/08/24 12:00 04/08/24 12:00 04/08/24 12:00
Physical Exam
Physical Exam
Constitutional: No Acute Distress and Chronically Ill
Cardiovascular: Regular Rate and S1/S2; Negative Murmur or Rub
Pulmonary: Clear and Symmetric; Negative Wheezes, Rales or Rhonchi
Gastrointestinal: Soft, Non Tender, Non Distended and Normal Bowel Sounds
Skin: Warm and Dry; Negative Rash or Jaundice
Neurological: Other (chronic LUE weakness - 5/5 strengtn in the hand, 0/5 arm and elbow; LLE 4/5 )
Lab / Diagnostic Study Results
04/08/24 05:01
04/08/24 05:01
Abs Immat Gran (auto) 0.1 10^3/uL (0-0.05) H 04/08/24 05:01
Absolute Neuts (auto) 5.5 10^3/uL (1.4-6.5) 04/08/24 05:01
Absolute Lymphs (auto) 0.4 10^3/uL (1.2-3.4) L 04/08/24 05:01
Absolute Monos (auto) 0.3 10^3/uL (0.1-0.6) 04/08/24 05:01
Absolute Basos (auto) 0.0 10^3/uL (0-0.2) 04/08/24 05:01
Immature Gran % 0.8 % (0-0.5) H 04/08/24 05:01
Neutrophils % 88.3 % (42.2-75.2) H 04/08/24 05:01
Lymphocytes % 6.1 % (20.5-51.1) L 04/08/24 05:01
Monocytes % 4.0 % (1.7-9.3) 04/08/24 05:01
Eosinophils % 0.5 % (0-6) 04/08/24 05:01
Basophils % 0.3 % (0-2) 04/08/24 05:01
ESR 8 mm/hour (0-20) 04/08/24 08:49
Microbiology Results
Micro:
04/08/24 04:09 Influenza Types A & B (NADIRA) - Final
Nasal Swab Negative for Influenza A & B, NAAT
Negative results must be combined with clinical observations
and patient history.
Nucleic Acid Amplification test (NAAT)performed on the
[employer] platform.
Assessment / Plan
Acute Stroke
COVID Infection without hypoxemia
Metastatic breast cancer to the brain
- primary etiology of stroke felt to be metastatic disease based on MRI. COVID infection also with an association with stroke
- steroids were indicated for metastatic disease.
- overall favor treatment with molnupiravir to avoid CYP interactions with statins.
- follow clinically
[2024-04-08] MEDS: LIPITOR 40 MG PO (18:04)
[2024-04-08] MEDS: LOVENOX 40 MG SC (18:05)
[2024-04-08] MEDS: MOLNUPIRAVIR (EUA) 800 MG PO (21:10)
[2024-04-08] MEDS: ELAVIL 25 MG PO (21:43)
[2024-04-09] VITALS (9 sets, daily range): BP systolic 120–138; BP diastolic 73–82; PULSE 99–102; O2SAT 96
[2024-04-09] MEDS: DECADRON 6 MG IV ×4 (03:28→22:42)
[2024-04-09 04:04] LABS: HDL Cholesterol 52 mg/dl; LDL Cholesterol, Calculated 194 mg/dl; Total Cholesterol 270 mg/dl (50-199); Triglyceride 120 mg/dl (10-149); Very Low Density Lipoprotein 24 mg/dl (0-30)
--- NOTE | 2024-04-09 07:34 | W.PN.NEURO.1 ---
Today's Communication / Plan
-
Radiation oncology consulted for palliative care of intracranial lesions
Initiated dexamethasone 6 mg every 6 hours to remediate edema
Discontinue aspirin
Patient initiated on atorvastatin due to elevated cholesterol levels
Neuro Assessment/Plan
Assessment
Acute onset left leg weakness in a patient with known metastatic breast cancer and now COVID-positive
Metastatic disease in brain without subacute left frontal ischemic lesion
Plan
Radiation oncology consulted for palliative care of intracranial lesions
Initiated dexamethasone 6 mg every 6 hours to remediate edema
Discontinue aspirin
Patient initiated on atorvastatin due to elevated cholesterol levels
Supportive care for COVID-19 as being provided
Consider neuroimaging of the entire spinal cord
Consider increase of patient's routine duloxetine for attempted improvement of pain control in her left upper extremity which is chronic pain presumed to be secondary to brachial plexopathy
Will follow peripherally
Subjective/Objective
Subjective Data
Date of Service: April 09, 2024
Objective Data
Vital Signs
Temp Pulse Resp BP Pulse Ox
37.2 C 114 17 121/74 95
04/09/24 03:38 04/09/24 03:32 04/09/24 03:32 04/09/24 03:32 04/09/24 03:38
Lab Results
04/08/24 05:01
04/08/24 05:01
Sodium 132 mmol/L (135-145) L 04/08/24 05:01
Potassium 3.6 mmol/L (3.5-5.1) 04/08/24 05:01
BUN 17 mg/dl (7-17) 04/08/24 05:01
Glucose 101 mg/dl (70-99) H 04/08/24 05:01
Calcium 8.7 mg/dl (8.4-10.2) 04/08/24 05:01
LDL Cholesterol, Calc 194 mg/dl 04/09/24 03:37
Patient Allergies
acetaminophen [From Percocet] Allergy (Verified 04/08/24 15:36)
Nausea / Vomiting
cefazolin Allergy (Verified 04/08/24 15:36)
Rash
oxycodone [From Percocet] Allergy (Verified 04/08/24 15:36)
Nausea / Vomiting
vancomycin Allergy (Verified 04/08/24 15:36)
Sharon syndrome; itchy rash despite premed w/ Benadry
--- NOTE | 2024-04-09 08:35 | W.PN.ONC2 ---
Today's Communication / Plan
-
XRT
steroids
OP PET
Impression
Impression
Metastatic triple negative breast cancer (TNBC) with widespread metastatic disease currently on fourth line therapy started 03/15, last tx 04/06 Halaven/pembro
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
Plan
Plan
agree with dexamethasone 6 mg Q6 hours and XRT
OP PET upon discharge
systemic antineoplastic therapy will be resumed post radiation course.
Subjective/Objective
Subjective
no new complaints
Vital Signs:
Vital Signs
Temp Pulse Resp BP Pulse Ox
98.9 F 114 17 121/74 95
04/09/24 03:38 04/09/24 03:32 04/09/24 03:32 04/09/24 03:32 04/09/24 03:38
Lab Results:
Laboratory Data
WBC 6.2 10^3/uL (4.8-10.8) 04/08/24 05:01
Hgb 9.8 g/dL (12.0-16.0) L 04/08/24 05:01
Plt Count 110 10^3/uL (130-400) L 04/08/24 05:01
eGFR > 60.00 04/08/24 05:01
[2024-04-09] MEDS: MOLNUPIRAVIR (EUA) 800 MG PO ×2 (09:02→22:34)
--- NOTE | 2024-04-09 11:21 | CM ---
Addendum entered by CARLIE Abbott 04/09/24 15:51:
[facility] has no beds at this time and patient cannot go to acute rehab and receive radiation. Per chart and input from Dr. Campos the radiation is a priority.
UPdated [facility] that patient will probably have to go home and do outpatient radiation. Mentioned patient may need to get w/c if she cannot tolerate walking in and out of radiation center from parking lot. Gave [facility] general number to call and see
if patient could have outpatient eval with Dr. Holloway once radiation ends.
Original Note:
Patient admitted from home with possible CVA. From MRI and notes in chart patient has mets to brain.
Patient was functioning independently prior to admit. She lives in ranch home with .
She does not use any DME. No history of SNF or VNA.
PCP Dr. Marcus Campa.
Pharmacy: [facility]
Spoke to and dgtr on speaker phone of [facility]. prefers Cm talk to dgtr about planning next level of care and then she will update him.
PT and OT evals recommend acute rehab. Discussed this with dgtr and spouse. Both prefer [facility] at but will consider [facility] acute rehab.
[facility] is concerned about what is the priority, the acute rehab or radiation to the brain?
CM to send referral to [facility] and ask about getting radiation while in acute rehab.
Cm to ask for PMR consult to help with authorization for [facility].
PLAN: acute rehab.
[2024-04-09] MEDS: CYMBALTA DELAYED RELEASE 60 MG PO (12:36)
--- NOTE | 2024-04-09 13:55 | W.PN.ID1 ---
Date of Service
Date of Service: April 09, 2024
Today's Communication
- overall favor treatment with molnupiravir x5 days total
- follow up with oncology, stable for dc from ID perspective
Assessment / Plan
Acute Stroke
COVID Infection without hypoxemia
Metastatic breast cancer to the brain
- primary etiology of stroke felt to be metastatic disease based on MRI. COVID infection also with an association with stroke
- steroids were indicated for metastatic disease.
- overall favor treatment with molnupiravir x5 days total
- follow up with oncology, stable for dc from ID perspective
Chief Complaint
-: Other (covid)
Subjective / Review of Systems
no further fevers
bp stable
no cbc or bmp this am and not needed from my perspective
nausea was yesterday and has resolved today
Vital Signs / Physical Exam
Vital Signs
Vital Signs
Temp Pulse Resp BP Pulse Ox
99.0 F 96 18 138/82 98
04/09/24 13:16 04/09/24 13:16 04/09/24 13:16 04/09/24 13:16 04/09/24 13:16
Physical Exam
Constitutional: No Acute Distress
Cardiovascular: Regular Rate and S1/S2; Negative Murmur or Rub
Pulmonary: Clear and Symmetric; Negative Wheezes or Rales
Gastrointestinal: Soft, Non Tender, Non Distended and Normal Bowel Sounds
Skin: Warm and Dry; Negative Rash or Jaundice
Lines: Port (accessed - no erythema, warmth, tenderness or drainage)
Objective Data
Lab Data
Lab Results
04/08/24 05:01
04/08/24 05:01
ESR 8 mm/hour (0-20) 04/08/24 08:49
Estimated Creat Clear 113 ml/min 04/08/24 05:01
Total Bilirubin 0.4 mg/dl (0.2-1.3) 04/08/24 05:01
AST 23 U/L (14-36) 04/08/24 05:01
ALT 13 U/L (0-35) 04/08/24 05:01
Alkaline Phosphatase 92 U/L (38-126) 04/08/24 05:01
Most recent labs reviewed.
Micro Results:
04/08/24 04:09 Influenza Types A & B (NADIRA) - Final
Nasal Swab Negative for Influenza A & B, NAAT
Negative results must be combined with clinical observations
and patient history.
Nucleic Acid Amplification test (NAAT)performed on the
[employer] platform.
--- NOTE | 2024-04-09 14:17 | W.PN.HOSP.TC ---
Today's Communication/Plan
-
Continue systemic steroids
Continue antiemetics
If improved nausea and vomiting, transition to oral steroids in AM.
PT/physiatry evaluation
Discharge planning
Discussed with oncology and ID.
Assessment / Plan
Assessment / Plan
Impression:
Presentation with generalized fatigue, weakness and falls.
Newly diagnosed intracranial metastatic disease
[id number] with fever and minimal respiratory symptoms (dry cough)
Conditions prior to admission:
Triple negative breast carcinoma recurrent and metastatic to the bone, lung, chest.
Status post bilateral mastectomies/implants
Ongoing systemic treatment with Keytruda and eribulin.
Right chest Chemo-Port in place
Left metastatic pleural effusion status post thoracentesis 02/19/2024.
Chronic anemia and thrombocytopenia secondary to chemotherapy.
Left upper extremity weakness secondary to neuropathy.
Plan:
Presentation with generalized weakness and falls at home.
Newly diagnosed intracranial metastatic disease
MRI Extensive intracranial metastatic disease as detailed above. The largest lesion measures approximately 1.5 x 1.0 cm in the superior right frontoparietal region with surrounding edema. There is an additional 1.3 x 1.2 cm lesion in the inferior
left frontal lobe with extensive surrounding edema with.
There is a 1.2 x 1.1 cm enhancing lesion which opacifies the distal aspect of the cerebral aqueduct/superior fourth ventricle.
Initiated on systemic steroids, currently on IV Decadron given persistent nausea and vomiting.
Plan is for initiation of palliative brain radiation as outpatient.
Physiatry consultation with option of acute rehab discharge
Febrile
COVID-19 positive
Chest x-ray with interval decrease in size and density of opacity in the superior left hemithorax, consistent with interval improvement in the left upper lobe pulmonary metastatic disease. No focal infiltrates.
Reports no respiratory symptoms.
Check chest x-ray
Immunosuppressed state due to ongoing systemic treatment for carcinoma
Discussed with ID
Initiated on molnupiravir
Triple negative breast carcinoma with metastatic process.
Ongoing chemotherapy.
Oncology consultation.
Anticipated Discharge: 24 - 48 hours
Subjective/Interval History
-
Date of Service: April 09, 2024
Objective Data
-
Vital Signs:
Vital Signs
Temp Pulse Resp BP Pulse Ox
99.0 F 96 18 138/82 98
04/09/24 13:16 04/09/24 13:16 04/09/24 13:16 04/09/24 13:16 04/09/24 13:16
Physical Exam
-
General: Well Developed and No Apparent Distress
HEENT: Normocephalic, Atraumatic and Moist Mucous Membranes
Respiratory: Clear to Auscultation
Cardiac: Regular Rhythm and S1/S2; Negative Murmur, Rub or Gallop
GI: Soft, Nontender, Nondistended and Normal Bowel Sounds; Negative Organomegaly
Rectal: Deferred by Provider
Musculoskeletal: No Clubbing, No Cyanosis and No Edema
Skin: Negative Rash
Neuro: Other (Left upper extremity weakness )
[2024-04-09] MEDS: LOVENOX 40 MG SC (17:56)
[2024-04-09] MEDS: LIPITOR 40 MG PO (17:56)
[2024-04-09] MEDS: ELAVIL 25 MG PO (22:35)
[2024-04-10 03:44] VITALS: BP 132/76
[2024-04-10] MEDS: DECADRON 6 MG IV ×3 (04:06→14:09)
[2024-04-10 07:30] VITALS: BP 126/72
[2024-04-10] MEDS: MOLNUPIRAVIR (EUA) 800 MG PO (08:16)
--- NOTE | 2024-04-10 09:13 | W.PN.ONC2 ---
Today's Communication / Plan
-
COVID per ID
continue dexamethasone
OP XRT upon discharge priority so prefer d/c home if possible
OP PET & follow up with Dr. Marx upon completion of XRT to resume systemic thearpy
Impression
Impression
Metastatic triple negative breast cancer (TNBC) with widespread metastatic disease currently on fourth line therapy started 03/15, last tx 04/06 Halaven/pembro
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
COVID
hypercoaguable state due to COVID and malignancy
chronic LUE pain due to brachial plexopathy
Plan
Plan
agree with dexamethasone 6 mg Q6 hours and XRT
OP PET upon discharge
systemic antineoplastic therapy will be resumed post radiation course.
molnupiravir per ID
Subjective/Objective
Subjective
no new complaints
no hypoxia
nausea improved since starting steroids
Vital Signs:
Vital Signs
Temp Pulse Resp BP Pulse Ox
98.1 F 91 16 126/72 95
04/10/24 07:30 04/10/24 07:30 04/10/24 07:30 04/10/24 07:30 04/10/24 07:30
Lab Results:
Laboratory Data
WBC 6.2 10^3/uL (4.8-10.8) 04/08/24 05:01
Hgb 9.8 g/dL (12.0-16.0) L 04/08/24 05:01
Plt Count 110 10^3/uL (130-400) L 04/08/24 05:01
eGFR > 60.00 04/08/24 05:01
Physical Exam
HEENT: Moist Mucous Membranes; No Jaundice
Cardiology: Normal Sinus Rhythm
Pulmonary: Clear
GI: Soft
Extremities: Pulses Present
Neuro: Other (left arm in sling)
[2024-04-10 11:00] VITALS: BP 126/69
[2024-04-10] MEDS: CYMBALTA DELAYED RELEASE 60 MG PO (11:55)
--- NOTE | 2024-04-10 12:34 | CM ---
Spoke with attending who stated that patient is medically stable for discharge. Patient per chart wants to pursue radiation as soon as discharge and not delay.
Plan: Case management will continue to follow and assist with discharge planning. Home when medically stable to receive radiation tx.
--- NOTE | 2024-04-10 13:22 | W.DS.TRANS ---
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
-
Discharge Instructions:
Discharge Diagnosis/Procedures Metastatic breast CA
Diet Regular
Instructions:
Stand-Alone Forms:
Changes to Home Medications: Yes
Discharge Medications:
DC Medications w/original date entered in [facility]
cholecalciferol (vitamin D3) 25 mcg (1,000 unit) tablet (Vitamin D3) 25 mcg PO DAILY Supplement 03/26/23
duloxetine 60 mg capsule,delayed release (Cymbalta) 60 mg PO DAILY@1230 depression 03/26/23
acetaminophen 500 mg tablet (Tylenol Extra Strength) 1,000 mg PO QIDPRN PRN mild pain 05/16/23
amitriptyline 25 mg tablet 25 mg PO HS 02/19/24
ascorbic acid (vitamin C) 500 mg tablet (Vitamin C) 500 mg PO DAILY 04/08/24
calcium carbonate 500 mg PO DAILY 04/08/24
darbepoetin maren in polysorbat 500 mcg/mL in polysorbate injection syringe 500 mcg SC Q3W 04/08/24
eribulin 1 mg/2 mL (0.5 mg/mL) intravenous solution 2.6 mg IV UD 04/08/24
lidocaine-prilocaine 2.5 %-2.5 % topical cream 1 applic topical DAILYPRN PRN port access 04/08/24
loratadine 10 mg tablet (Claritin) 10 mg PO DAILYPRN PRN take day or and after chemo treatment 04/08/24
dexamethasone 6 mg tablet 6 mg PO Q6H #120 tabs 04/10/24
molnupiravir 200 mg capsule (EUA) (Lagevrio) 800 mg (4 x 200 mg) PO BID #6 caps 04/10/24
ondansetron 4 mg disintegrating tablet 8 mg (2 x 4 mg) PO Q6HPRN nausea from chemo #60 tabs 04/10/24
pantoprazole 40 mg tablet,delayed release (Protonix) 40 mg PO DAILY #30 tabs 04/10/24
Home Medication Changes
Decadron
Pending Results: No
--- NOTE | 2024-04-10 14:55 | PTCARENOTE ---
Rn Coordinator- Called to [facility] pharmacy in [place] to confirm that they have Lageviro in stock. Confirmed by pharmacist that it is available.
[2024-04-10 15:28] VITALS: BP 136/83
== END 2024-04-10 15:46 | disposition home or self-care (01) | DRG 64 ==
LOC: 3 WEST ACU 07:30
PROVIDERS: ADMITTING PHYSICIAN Internal Medicine; ATTENDING PHYSICIAN Internal Medicine; CONSULT PHYSICIAN Internal Medicine Hematology & Oncology; CONSULT PHYSICIAN Psychiatry & Neurology Neurology; CONSULT PHYSICIAN Student in an Organized Health Care Education/Training Program; EMERGENCY PHYSICIAN Student in an Organized Health Care Education/Training Program; FAMILY PHYSICIAN Family Medicine
DX: I63.9 Cerebral infarction, unspecified (principal); G93.6 Cerebral edema; U07.1 COVID-19; C79.31 Secondary malignant neoplasm of brain; E87.1 Hypo-osmolality and hyponatremia; D84.9 Immunodeficiency, unspecified; C50.919 Malignant neoplasm of unspecified site of unspecified female breast; Z17.421 Hormone receptor negative with human epidermal growth factor receptor 2 negative status; Z90.13 Acquired absence of bilateral breasts and nipples; G89.29 Other chronic pain; Z87.891 Personal history of nicotine dependence
CPT/HCPCS: 70450; 70496; 70553; 71046; 80053; 80061; 83036; 85025; 85652; 87502; 87811; 92610; 93005; 96374; 96375; 97163; 97167; 97530; 97535; 99285; A9575; Q9967

== ENCOUNTER 2024-04-27 10:20 | Emergency (ER) | payer OTHER, SELFPAY ==
[2024-04-27 10:22] VITALS: BP 143/88
[2024-04-27 10:30] VITALS: BP 143/88; BMI 29.6
[2024-04-27 11:46] LABS: % Basophils 0.1 % (0-2); % Immature Granulocytes 4.6 % (0-0.5); % Lymphocytes 3.9 % (20.5-51.1); % Monocytes 4.3 % (1.7-9.3); % Neutrophils 87.1 % (42.2-75.2); Absolute Immature Granulocytes 0.4 10^3/uL (0-0.05); Absolute Lymphocytes 0.4 10^3/uL (1.2-3.4); Absolute Monocytes 0.4 10^3/uL (0.1-0.6); Absolute Neutrophils 7.9 10^3/uL (1.4-6.5); Hematocrit 33.8 % (37.0-47.0); Hemoglobin 11.5 g/dL (12.0-16.0); Mean Corpuscular Hgb 29.3 pg (27.0-31.0); Mean Platelet Volume 8.4 fL (7.4-10.4); Nucleated Red Blood Cells % 0 %; Platelet Count 91 10^3/uL (130-400); Red Blood Cell Count 3.93 10^6/uL (4.20-5.40); Red Cell Dist. Width 17.5 % (11.5-14.5)
[2024-04-27 11:56] LABS: ALT (SGPT) 18 U/L (0-35); AST (SGOT) 16 U/L (14-36); Albumin 3.6 g/dl (3.5-5.0); Alkaline Phosphatase 69 U/L (38-126); Blood Urea Nitrogen 21 mg/dl (7-17); Calcium 8.1 mg/dl (8.4-10.2); Carbon Dioxide 28 mmol/L (22-30); Chloride 92 mmol/L (98-107); Estimated Creatinine Clearance 110 ml/min; Glucose 85 mg/dl (70-99); Sodium 126 mmol/L (135-145); Total Bilirubin 0.9 mg/dl (0.2-1.3); Total Protein 5.8 g/dl (6.3-8.2); eGFR > 60.00
[2024-04-27 12:16] LABS: Potassium 3.7 mmol/L (3.5-5.1)
--- NOTE | 2024-04-27 12:18 | ED.GENMED ---
History of Present Illness
General
Chief Complaint: Seizure
Time Seen by Provider: 04/27/24 10:43
History of Present Illness
History of Present Illness:
54-year-old female with history of metastatic breast cancer presenting to the emergency department for new onset seizure. Patient recently diagnosed with brain metastasis on admission from 04/08 to 04/10 where she was having left-sided weakness.
Patient had an MRI that showed brain mets. She subsequently was scheduled to start radiation oncology. She was at radiation today, had a seizure prior to her treatment which allegedly lasted for several seconds. Patient denies history of seizures
in the past. She is currently asymptomatic. Notes continued left lower extremity weakness, which she had during her recent admission. Reports chronic weakness to her left upper extremity. Denies any recent fever. Denies chest pain, difficulty
breathing, abdominal pain. Denies additional acute medical complaints
Past History
Past History
ED Past Medical History: Cancer (Triple negative breast 2015 metastases lung and hip) and Other (Peripheral neuropathy, G4, P3; COVID 2020, March 2024)
ED Past Surgical History: Other (Double mastectomy with implants, lung node biopsy)
Social History
Tobacco: Former smoker
Alcohol: Occasional
Personal:
Living: with family
Family History
Family History: Other (Reviewed and noncontributory)
Phy Exam
Physical Exam
Physical Exam:
General: Well-appearing, no clinical signs of dehydration, nontoxic and in no acute distress
HEENT: protecting airway
Neck: appears supple
CV: Normal heart rate, regular rhythm
Resp: No accessory muscle use, no increased work of breathing, lungs clear to auscultation bilaterally
Abd: Soft and non-distended, no tenderness to palpation, normal bowel sounds
Extremities: No deformities, no swelling, no erythema. Weakness to left upper extremity, noted to be chronic.
Neuro: alert, no focal neurologic deficit
: deferred
Rectal: deferred
Psych: Normal affect
Skin: Intact
Course
Orders/Labs/Results
Orders:
Orders
04/27/24 11:08
CT Head W/o Iv Contrast Urgent
Comment:
Reason For Exam: seizure brain mets
04/27/24 11:26
Complete Blood Count/With Diff Urgent
Comprehensive Metabolic Panel Urgent
04/27/24 12:18
Levetiracetam [Keppra] 500 mg PO NOW STA
04/27/24 13:33
EEG Routine Routine
Reason for Exam: ? CPS
Neurology Consult:: DR. SCHMIDT
Abnormal Lab Results
04/27/24
11:26
RBC 3.93 L 10^6/uL
(4.20-5.40)
Hgb 11.5 L g/dL
(12.0-16.0)
Hct 33.8 L %
(37.0-47.0)
RDW 17.5 H %
(11.5-14.5)
Plt Count 91 L 10^3/uL
(130-400)
Abs Immat Gran (auto) 0.4 H 10^3/uL
(0-0.05)
Absolute Neuts (auto) 7.9 H 10^3/uL
(1.4-6.5)
Absolute Lymphs (auto) 0.4 L 10^3/uL
(1.2-3.4)
Immature Gran % 4.6 H %
(0-0.5)
Neutrophils % 87.1 H %
(42.2-75.2)
Lymphocytes % 3.9 L %
(20.5-51.1)
Sodium 126 L mmol/L
(135-145)
Chloride 92 L mmol/L
(98-107)
BUN 21 H mg/dl
(7-17)
Creatinine 0.4 L mg/dL
(0.6-1.0)
Calcium 8.1 L mg/dl
(8.4-10.2)
Total Protein 5.8 L g/dl
(6.3-8.2)
04/27/24 11:26
04/27/24 11:26
Vital Signs
Initial and Last Documented VS:
Initial Vital Signs
BP
143/88
04/27/24 10:22
Last Documented Vital Signs
Temp Pulse Resp BP Pulse Ox
98.6 F 74 18 137/85 100
04/27/24 13:49 04/27/24 13:49 04/27/24 13:49 04/27/24 13:49 04/27/24 13:49
MDM/Problems Addressed
MDM/Problems Addressed:
54-year-old female with history of metastatic breast cancer presenting for new onset seizure while at radiation oncology. Vital signs on arrival are normal.
On exam, patient is resting comfortably, no acute distress. No acute neurologic findings on exam. Chronic weakness to left upper extremity. Strength is intact to lower extremities. Suspect seizure from known brain metastasis. On recent
admission, had MRI that showed extensive intracranial metastasis. Will screen with laboratory analysis and CT brain imaging.
12:30 - Patient's labs do show new hyponatremia of 126, however do not suspect this is causing seizures. In discussion with neurology, will start on Keppra with plan for EEG.
13:30 -in discussion with oncology on-call, recommending the patient go home to continue her radiation therapy. Pending EEG
14:50 -Per neurology, EEG within normal limits. Plan for discharge on Keppra, if patient will continue with radiation tomorrow. Explained to patient and at bedside that she will need her sodium rechecked, and to follow-up with her doctor
for this. Return precautions communicated including any additional seizures. Patient and verbalized understanding
*Critical Care Note
Total Time (30-74mins, 75-104mins- exclusive of procedures): Not Applicable
ED Attending Note
-
Portions of this chart may have been created with voice recognition software.� Occasional wrong word or��sound alike� substitutions may have occurred due to the inherent limitations of voice recognition software.
Discharge Plan
Departure
Prescriptions:
No Action
duloxetine [Cymbalta] 60 mg Capsule,Delayed Release(Dr/Ec)
60 mg PO DAILY@1200
acetaminophen [Tylenol Extra Strength] 500 mg Tablet
1,000 mg PO QIDPRN PRN (Reason: mild pain)
amitriptyline 25 mg Tablet
25 mg PO HS
calcium carbonate 500 mg calcium (1,250 mg) Tablet
500 mg PO DAILY
ascorbic acid (vitamin C) [Vitamin C] 500 mg Tablet
1,000 mg PO DAILY
pantoprazole [Protonix] 40 mg tablet,delayed release (DR/EC)
40 mg PO DAILY Qty: 30 1RF
sennosides 8.6 mg Tablet
8.6 mg PO BID PRN (Reason: CONSTIPATION)
dexamethasone 4 mg tablet
4 mg PO Q6
memantine 5-10 mg tablets,dose pack
5 ea PO .TITRATION
cholecalciferol (vitamin D3) [Vitamin D3] 125 mcg (5,000 unit) Tablet
250 mcg PO DAILY
Referrals:
UNKNOWN - PT DOES,NOT KNOW [Family Provider] -
Interventions
Interventions:
*Risk Screen - Suicide Last Done: 04/27/24 10:30
*General Assessment Last Done: 04/27/24 10:30
*Neglect/Abuse Screening Last Done: 04/27/24 10:30
ED- Cardiac Assessment Last Done: 04/27/24 10:30
ED- Neurological Assessment Last Done: 04/27/24 10:30
ED- Pulmonary Assessment Last Done: 04/27/24 10:30
Discharge Date and Time
Print Language: LITHUANIAN
[2024-04-27] MEDS: KEPPRA 500 MG PO ×2 (12:50→15:02)
[2024-04-27 13:49] VITALS: BP 137/85
[2024-04-27 15:05] VITALS: BP 122/90
--- NOTE | 2024-04-27 15:55 | EEG.RPT ---
Electroencephalogram Report
Recording
Type of EEG: Routine
Done with Video Recording: Yes
Patient Status: Emergency Room
Recording Conditions: Awake
Hyperventilation Performed: No
Photic Stimulation Performed: Yes
Report
History: brain metastasis, first time seizure
Background: posterior dominant rhythm, 9-10 Hz, symmetric, with spontaneous variability and reactivity
Sleep: none
Focal/rhythmic/epileptiform: none
Seizures: none
Photic stim: no background change
Impression: normal
== END 2024-04-27 15:43 | disposition home or self-care (01) ==
LOC: EMR 10:20
PROVIDERS: EMERGENCY PHYSICIAN Student in an Organized Health Care Education/Training Program
DX: R56.9 Unspecified convulsions (principal); E87.1 Hypo-osmolality and hyponatremia; C79.31 Secondary malignant neoplasm of brain; Z85.3 Personal history of malignant neoplasm of breast; Z87.891 Personal history of nicotine dependence; Z90.13 Acquired absence of bilateral breasts and nipples
CPT/HCPCS: 99284; 70450; 80053; 85025; 95816

== ENCOUNTER 2024-04-28 16:03 | Inpatient (IN) | payer OTHER, SELFPAY ==
[2024-04-28] VITALS (12 sets, daily range): BP systolic 107–134; BP diastolic 60–86; BMI 29.0; BMI 28.3
--- NOTE | 2024-04-28 11:16 | ED.GENMED ---
History of Present Illness
General
Chief Complaint: Seizure
Source: patient
Time Seen by Provider: 04/28/24 10:54
History of Present Illness
History of Present Illness:
54-year-old female presents to the emergency room after having a seizure at radiation oncology. Patient had a seizure yesterday at radiation oncology. She was evaluated in the emergency room had an EEG and CT of the head. She was started on
Keppra. Patient states she did take her Keppra today. Radiation oncologist noted the seizure occurred when being positioned today and the same way it happened yesterday. Patient has focal left arm weakness which is pre-existing
Past History
Past History
ED Past Medical History: Cancer (Triple negative breast 2015 metastases lung and hip) and Other (Peripheral neuropathy, G4, P3; COVID 2020, March 2024)
ED Past Surgical History: Other (Double mastectomy with implants, lung node biopsy)
Social History
Tobacco: Former smoker
Alcohol: Occasional
Personal:
Living: with family
Family History
Family History: Other (Reviewed and noncontributory)
Phy Exam
Physical Exam
Physical Exam:
General: Awake, Alert, Oriented X3. No acute distress.
Vitals: unremarkable
Head: Atraumatic
Eyes: Pupils equal, EOMI
Throat: Airway intact, no exudates
Neck: Trachea midline
Lungs: Clear and equal b/l
Heart: Regular rate, no murmurs
Abd: Soft, Nontender, No pulsatile mass
Neuro: Cranial nerves intact, left arm weakness
Skin: Warm, dry, no rash
Extremities: pulses equal b/l, no edema
Course
Orders/Labs/Results
Orders:
Orders
04/28/24 11:21
Basic Metabolic Panel Urgent
04/28/24 11:30
Heparin Pf [Heparin Lock Flush] 500 unit IV PER PROTOCOL
04/28/24 11:56
Levetiracetam Injectable [Keppra] 2,000 mg IV NOW STA
04/28/24 12:10
Heparin Pf [Heparin Lock Flush] 500 unit .ROUTE .[facility]
04/28/24 13:09
Osmolality, Random Urine Urgent
Date Specimen was Collected: 04/28/24
Time Specimen was Collected: 12:47
Urine Sodium Urgent
Date Specimen was Collected: 04/28/24
Time Specimen was Collected: 12:47
Abnormal Lab Results
04/28/24
11:21
Sodium 125 L mmol/L
(135-145)
Chloride 93 L mmol/L
(98-107)
Creatinine 0.4 L mg/dL
(0.6-1.0)
Glucose 102 H mg/dl
(70-99)
Calcium 8.0 L mg/dl
(8.4-10.2)
04/28/24 11:21
Vital Signs
Initial and Last Documented VS:
Initial Vital Signs
Temp Pulse Resp BP Pulse Ox
98.5 F 66 16 134/79 98
04/28/24 10:38 04/28/24 10:38 04/28/24 10:38 04/28/24 10:38 04/28/24 10:38
Last Documented Vital Signs
Temp Pulse Resp BP Pulse Ox
98.5 F 80 18 107/69 99
04/28/24 10:38 04/28/24 15:17 04/28/24 15:17 04/28/24 15:00 04/28/24 15:17
MDM/Problems Addressed
Differential Diagnosis Includes:
Seizure related to metastatic disease, seizure related to hyponatremia, other electrolyte abnormality
MDM/Problems Addressed:
Patient presents with a seizure that occurred while she was at radiation oncology. No further seizure activity here. Case discussed with neurology who recommends loading Keppra. Dr. Cobian came to the emergency room to evaluate the patient. Labs
show the patient's sodium is 125. It was 126 yesterday. Urine studies ordered. Discussed the patient's presentation with nephrology. Recommend fluid restriction, sodium tablets but should get a dose of Samsca today. He will order the Samsca.
Neurology recommends watching the patient least overnight to make sure his sodium does not trended a negative direction.
*Pulse Oximetry
Patient hypoxic: no
*Critical Care Note
Total Time (30-74mins, 75-104mins- exclusive of procedures): Not Applicable
Patient Management
Social determinants of health affecting care: Strong social support
ED Attending Note
-
Portions of this chart may have been created with voice recognition software.� Occasional wrong word or��sound alike� substitutions may have occurred due to the inherent limitations of voice recognition software.
Discharge Plan
Departure
Patient Disposition: Admit
Date of Disposition: 04/28/24
Time of Disposition: 15:09
Admit to: Med/Surg
Presentation/result/management discussed w/ accepting MD/DO: Hospitalist
Condition: Fair
Discharge Problem:
Acute hyponatremia, Seizure
Prescriptions:
No Action
duloxetine [Cymbalta] 60 mg Capsule,Delayed Release(Dr/Ec)
60 mg PO DAILY@1200
acetaminophen [Tylenol Extra Strength] 500 mg Tablet
1,000 mg PO QIDPRN PRN (Reason: mild pain)
amitriptyline 25 mg Tablet
25 mg PO HS
calcium carbonate 500 mg calcium (1,250 mg) Tablet
500 mg PO DAILY
ascorbic acid (vitamin C) [Vitamin C] 500 mg Tablet
1,000 mg PO DAILY
pantoprazole [Protonix] 40 mg tablet,delayed release (DR/EC)
40 mg PO DAILY Qty: 30 1RF
sennosides 8.6 mg Tablet
8.6 mg PO BIDPRN PRN (Reason: CONSTIPATION)
dexamethasone 4 mg tablet
4 mg PO Q6
memantine 5-10 mg tablets,dose pack
5 ea PO .TITRATION
cholecalciferol (vitamin D3) [Vitamin D3] 125 mcg (5,000 unit) Tablet
250 mcg PO DAILY
levetiracetam [Keppra] 500 mg tablet
500 mg PO BID Qty: 60 0RF
Referrals:
NONE,* [Family Provider] -
Interventions
Interventions:
*Risk Screen - Suicide Last Done: 04/28/24 10:38
*General Assessment Last Done: 04/28/24 10:38
*Neglect/Abuse Screening Last Done: 04/28/24 10:38
ED- Fall Risk Assessment Last Done: 04/28/24 10:38
*ED COVID-19 Vaccine History Last Done: 04/28/24 10:38
ED- Cardiac Assessment Last Done: 04/28/24 11:15
ED- Neurological Assessment Last Done: 04/28/24 11:15
ED- Pulmonary Assessment Last Done: 04/28/24 11:15
Discharge Date and Time
Print Language: MALAY
[2024-04-28 12:04] LABS: Blood Urea Nitrogen 16 mg/dl (7-17); Carbon Dioxide 28 mmol/L (22-30); Chloride 93 mmol/L (98-107); Glucose 102 mg/dl (70-99); Potassium 3.8 mmol/L (3.5-5.1); Sodium 125 mmol/L (135-145); eGFR > 60.00
[2024-04-28] MEDS: KEPPRA 2000 MG IV (12:18)
[2024-04-28 13:46] LABS: Osmolality Urine 393 mOsm/kg (300-900)
[2024-04-28 14:29] LABS: Urine Sodium 70 mmol/L (30-90)
--- NOTE | 2024-04-28 15:34 | HPS.HSE ---
Family Physician
-
Family Physician: * NONE
Chief Complaint
-
seizure
History of Present Illness
54-year-old female past medical history of triple negative breast cancer with metastasis to bone, lung, chest, brain status post bilateral mastectomy/implants, metastatic pleural effusion status post thoracentesis, chronic anemia/thrombocytopenia
secondary chemotherapy, neuropathy, presenting after having a seizure at radiation oncology today. She is undergoing radiation of the brain brain metastases. Had a seizure yesterday radiation oncology. Reportedly her arm was shaking. She was
evaluated in the emergency room and had EEG and CT of the head. She was started on Keppra yesterday. Radiation oncologist noted the seizure occurred while being physician today the same as yesterday. Patient has focal left arm weakness from prior
radiation which is not new.
She was recently discovered to have brain metastases a few weeks ago after a fall and ongoing headaches and imaging of the brain showed brain metastases. She is not currently on chemotherapy. She last received chemotherapy 2 weeks ago. Oncologist
is Dr. Marx. There is plan to start chemotherapy again in the near future.
She has been having gait dysfunction. No focal weakness. No dizziness or vertigo
She has been drinking 1.5 to 2 L of fluids every day. She has been drinking more fluids recently.
She does not drink alcohol or smoke.
Medical History
Past Medical History
Past Medical History: Reports Other ( triple negative breast cancer with metastasis to bone, lung, chest, brain status post bilateral mastectomy/implants, metastatic pleural effusion status post thoracentesis, chronic anemia/thrombocytopenia
secondary chemotherapy, neuropathy,)
Past Surgical History: Reports Other (Double mastectomy with implants, lung node biopsy))
Social History
Tobacco: Non-smoker
Alcohol: None
Drug: None
Family History
Family History: Not pertinent
Allergies / Home Medications
Allergies reflects when Allergies were last updated in [employer].
Home Medications with original date entered in [employer]
Allergy/Medication List:
Allergies
Allergy/AdvReac Type Severity Reaction Status Date / Time
cefazolin Allergy Rash Verified 04/28/24 15:16
oxycodone [From Percocet] Allergy Nausea / Verified 04/28/24 15:16
Vomiting
vancomycin Allergy Sharon Verified 04/28/24 15:16
syndrome;
itchy rash
despite
premed w/
Benadry
Home Medications
duloxetine 60 mg capsule,delayed release (Cymbalta) 60 mg PO DAILY@1200 depression 03/26/23
acetaminophen 500 mg tablet (Tylenol Extra Strength) 1,000 mg PO QIDPRN PRN mild pain 05/16/23
amitriptyline 25 mg tablet 25 mg PO HS 02/19/24
ascorbic acid (vitamin C) 500 mg tablet (Vitamin C) 1,000 mg PO DAILY 04/08/24
calcium carbonate 500 mg PO DAILY 04/08/24
pantoprazole 40 mg tablet,delayed release (Protonix) 40 mg PO DAILY #30 tabs 04/10/24
cholecalciferol (vitamin D3) 125 mcg (5,000 unit) tablet (Vitamin D3) 250 mcg PO DAILY 04/27/24
dexamethasone 4 mg tablet 4 mg PO Q6 04/27/24
levetiracetam 500 mg tablet (Keppra) 500 mg PO BID #60 tabs 04/27/24
memantine 5 mg-10 mg tablets in a dose pack 5 ea PO .TITRATION 04/27/24
sennosides 8.6 mg tablet 8.6 mg PO BIDPRN PRN CONSTIPATION 04/27/24
Review of Systems
-
History Source: Patient
A 12 point ROS was completed and negative except as noted: Yes
Constitutional: Reports No Symptoms
EENT: Reports No Symptoms
Respiratory: Reports No Symptoms
Cardiac: Reports No Symptoms
Abdomen/GI: Reports No Symptoms
: Reports No Symptoms
Musculoskeletal: Reports No Symptoms
Skin: Reports No Symptoms
Neurological: Reports No Symptoms
Endocrine: Reports No Symptoms
Hematologic/Lymphatic: Reports No Symptoms
Psych: Reports No Symptoms
Physical Exam
Vital Signs
Vital Signs
Temp Pulse Resp BP Pulse Ox
98.5 F 80 18 107/69 99
04/28/24 10:38 04/28/24 15:17 04/28/24 15:17 04/28/24 15:00 04/28/24 15:17
Physical Exam
General: Well Developed, Well Nourished and No Apparent Distress
HEENT: NormoCephalic, Moist mucous membranes and Atraumatic
Respiratory: Clear
Cardiac: S1/S2 and Regular Rhythm; No Murmur or Rub
GI: Soft, Non Tender, Non Distended and Normal Bowel Sounds; No Organomegaly
Rectal: Deferred by Provider
Musculoskeletal: No Clubbing, No Cyanosis and No Edema
Skin: No Rash
Neuro: Nonfocal/grossly intact
Laboratory Results
-
04/28/24 11:21
Data Reviewed
-
Lab Data: Labs Reviewed by me
Old Records: Reviewed
Impression/Plan
-
IMPRESSION:
PLAN:
# Seizures secondary to newly discovered brain metastases
# Brain metastasis undergoing brain radiation
-CT head shows no acute intracranial hemorrhage, no intracranial mass lesions not well-seen, surrounding edematous changes as seen on prior examination
-MRI brain from 04/08 shows extensive intracranial metastatic disease with largest lesion 1.5 x 1 cm superior right frontoparietal region with surrounding edema, additional 1.3 x 1.2 cm lesion in the inferior left frontal lobe with extensive edema,
1.2 to 1.1 cm enhancing lesion which opacifies the distal aspect of the cerebral aqueduct/superior fourth ventricle
-Keppra 2000 mg given, continue 500 twice daily
-Would not consider this Keppra failure as patient was just started on Keppra yesterday
-Continue dexamethasone
-Neurology consulted
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
-Urine osmolality of 393 urine sodium of 70
-Sodium of 125 normally around 130
-Fluid restriction to 1200 cc
History of triple negative breast cancer metastases to bone, lung, chest and brain
History of bilateral mastectomy/implant
Metastatic pleural effusion status post thoracentesis
Chronic anemia/thrombocytopenia secondary to chemotherapy
-Stable
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
-Continue amitriptyline, duloxetine
Full code
DVT prophylaxis�SCDs
Regular diet
[2024-04-28] MEDS: CYMBALTA DELAYED RELEASE 60 MG PO (16:27)
--- NOTE | 2024-04-28 16:45 | W.CON.NEPH ---
Consultation
-
Date/Time Consultation Requested: April 28, 2024 at 3 PM
Date/Time Consultation Performed: April 28, 2024 at 4 PM
Requesting Provider: Dr. Marx
Performing Provider: Dr. Feliz Valera
Reason for Consultation: Hyponatremia
Medical History
-
Chief Complaint: Hyponatremia
History of Present Illness:
54-year-old female past medical history of triple negative breast cancer with metastasis to bone, lung, chest, brain status post bilateral mastectomy/implants, metastatic pleural effusion status post thoracentesis, chronic anemia/thrombocytopenia
secondary chemotherapy, neuropathy, presenting after having a seizure at radiation oncology today. She is undergoing radiation of the brain brain metastases. Had a seizure yesterday radiation oncology. Reportedly her arm was shaking. She was
evaluated in the emergency room and had EEG and CT of the head. She was started on Keppra yesterday. Radiation oncologist noted the seizure occurred while being physician today the same as yesterday.
Renal consult for hyponatremia of 125. Yesterday was 126. She drinks about 60 ounces of fluid per day. She does not take any NSAIDs and she does not have any chronic pain.
She is comfortable seeing the emergency room present with her daughter who help provide some history.
Past Medical History
triple negative breast cancer with metastasis to bone, lung, chest, brain status post bilateral mastectomy/implants, metastatic pleural effusion status post thoracentesis, chronic anemia/thrombocytopenia secondary chemotherapy, neuropathy,
Social History
Tobacco: Non-Smoker
Alcohol: None
Family History
Family History: Not Pertinent
Allergies / Home Medications
Allergy/AdvReac Type Severity Reaction Status Date / Time
cefazolin Allergy Rash Verified 04/28/24 15:16
oxycodone [From Percocet] Allergy Nausea / Verified 04/28/24 15:16
Vomiting
vancomycin Allergy Sharon Verified 04/28/24 15:16
syndrome;
itchy rash
despite
premed w/
Benadry
�Medication �Instructions �Recorded �Confirmed �Type
duloxetine 60 mg capsule,delayed 60 mg PO DAILY@1200 depression 03/26/23 04/28/24 History
release (Cymbalta)
acetaminophen 500 mg tablet 1,000 mg PO QIDPRN PRN mild pain 05/16/23 04/28/24 History
(Tylenol Extra Strength)
amitriptyline 25 mg tablet 25 mg PO HS 02/19/24 04/28/24 History
ascorbic acid (vitamin C) 500 mg 1,000 mg PO DAILY 04/08/24 04/28/24 History
tablet (Vitamin C)
calcium carbonate 500 mg PO DAILY 04/08/24 04/28/24 History
pantoprazole 40 mg tablet,delayed 40 mg PO DAILY #30 tabs 04/10/24 04/28/24 Rx
release (Protonix)
cholecalciferol (vitamin D3) 125 250 mcg PO DAILY 04/27/24 04/28/24 History
mcg (5,000 unit) tablet (Vitamin
D3)
dexamethasone 4 mg tablet 4 mg PO Q6 04/27/24 04/28/24 History
levetiracetam 500 mg tablet 500 mg PO BID #60 tabs 04/27/24 04/28/24 Rx
(Keppra)
memantine 5 mg-10 mg tablets in a 5 ea PO .TITRATION 04/27/24 04/28/24 History
dose pack
sennosides 8.6 mg tablet 8.6 mg PO BIDPRN PRN CONSTIPATION 04/27/24 04/28/24 History
Review of Systems
-
All other systems: Negative unless noted
Physical Exam
Vital Signs
Vital Signs
Temp Pulse Resp BP Pulse Ox
98.5 F 82 16 111/75 97
04/28/24 10:38 04/28/24 16:15 04/28/24 16:15 04/28/24 16:00 04/28/24 16:15
Lab Results
Sodium 125 mmol/L (135-145) L 04/28/24 11:21
Potassium 3.8 mmol/L (3.5-5.1) 04/28/24 11:21
Chloride 93 mmol/L (98-107) L 04/28/24 11:21
Carbon Dioxide 28 mmol/L (22-30) 04/28/24 11:21
BUN 16 mg/dl (7-17) 04/28/24 11:21
Creatinine 0.4 mg/dL (0.6-1.0) L 04/28/24 11:21
eGFR > 60.00 04/28/24 11:21
Glucose 102 mg/dl (70-99) H 04/28/24 11:21
Calcium 8.0 mg/dl (8.4-10.2) L 04/28/24 11:21
Physical Exam
General no acute distress
HEENT no cephalic atraumatic extraocular muscle intact no scleral icterus no JVD neck supple
lungs clear to auscultation bilateral
heart regular S1-S2 positive
abdomen soft nontender positive bowel sounds
extremities no edema pulses present bilateral
Neurologically nonfocal alert and oriented x 3
Skin no lesions no abrasions no petechiae
Psych normal affect no bizarre behavior
Assessment/Plan
-
54-year-old female past medical history of triple negative breast cancer with metastasis to bone, lung, chest, brain status post bilateral mastectomy/implants, metastatic pleural effusion status post thoracentesis, chronic anemia/thrombocytopenia
secondary chemotherapy, neuropathy, presenting after having a seizure at radiation oncology today. She is undergoing radiation of the brain brain metastases. Had a seizure yesterday radiation oncology. Reportedly her arm was shaking. She was
evaluated in the emergency room and had EEG and CT of the head. She was started on Keppra yesterday. Radiation oncologist noted the seizure occurred while being physician today the same as yesterday.
Impression.
Hyponatremia of 125.
Metastatic breast cancer undergoing chemotherapy and radiation
Seizure x 2.
Plan.
With new seizure I suggested to keep the patient observation for 24 hours with fluid restriction.
It is rare to get seizure with a sodium of 125. I would expect that much lower level and even that is very rare.
Urine sodium 70/urine osmolality 393�consistent with SIADH
Suspect seizure is more from her metastatic disease to the brain.
Having said that we will monitor for 24 hours fluid restriction will give 7.5 mg of Samsca.
Expect should be able to be discharged tomorrow as discussed with the patient and her daughter to continue with fluid restriction going forward about 32 to 40 ounces and a high-protein diet..
There is no active seizure and now there is no indication for 3% saline at this time.
[2024-04-28] MEDS: DECADRON 4 MG PO ×2 (17:05→23:16)
[2024-04-28] MEDS: SAMSCA 7.5 MG PO (18:06)
--- NOTE | 2024-04-28 18:34 | CON.NEURO ---
Neuro Assessment/Plan
Assessment
brain MRI imgs rev'd, multiple mets with vasogenic edema
EEG yesterday was normal
patient with second seizure
was not steady state on Keppra 500 BID
doubt any positional involvement to her seizure
Plan
patient placed supine 10 minutes without any seizure
no need to repeat studies
Load Keppra 2 grams, increase to 1000 BID
discussed with patient to come to ED if seizure >5 minutes, multiple sz without return to baseline, not back to normal within 1 hour, or if her seizure is different from the previous ones
otherwise, if she has the same seizure again her keppra could be increased to 1500 BID over the phone.
Consultation
Order
Date of Consultation: 04/28/24
Requesting Provider: Jacob Marx
Reason for Consult: seizure
Subjective/Objective
Subjective Data
Date of Service: April 28, 2024
She is a 54 year old woman, triple negative breast cancer metastases to bone, lung, chest and brain, brain mets with vasogenic edema on Decadron 4 mg q6; radiation neuropathy affecting LUE;
presented yesterday from radiation tx after laying flat and had a seizure lasting seconds, and quickly returned to baseline. She was seen in the ED, had a normal EEG, and was started on Keppra 500 BID and discharged
today she was at radiation tx again had a similar seizure after laying supine
Objective Data
Vital Signs
Temp Pulse Resp BP Pulse Ox
36.9 C 84 18 108/66 98
04/28/24 10:38 04/28/24 18:05 04/28/24 18:05 04/28/24 18:05 04/28/24 18:05
Lab Results
04/28/24 11:21
Sodium 125 mmol/L (135-145) L 04/28/24 11:21
Potassium 3.8 mmol/L (3.5-5.1) 04/28/24 11:21
BUN 16 mg/dl (7-17) 04/28/24 11:21
Glucose 102 mg/dl (70-99) H 04/28/24 11:21
Calcium 8.0 mg/dl (8.4-10.2) L 04/28/24 11:21
Patient Allergies
cefazolin Allergy (Verified 04/28/24 15:16)
Rash
oxycodone [From Percocet] Allergy (Verified 04/28/24 15:16)
Nausea / Vomiting
vancomycin Allergy (Verified 04/28/24 15:16)
Sharon syndrome; itchy rash despite premed w/ Benadry
Physical Exam
-
AAOx3, speech clear
face symmetric
RUE full strength, LUE 2/5
b/l LE full strength
Medications
-
Active Medications
Generic Name Dose Route Start Last Admin
Trade Name Freq PRN Reason Stop Dose Admin
Acetaminophen 1,000 mg 04/28/24 17:00
Acetaminophen 500 Mg Tablet PO 05/26/24 16:59
QIDPRN PRN
mild pain
Amitriptyline HCl 25 mg 04/28/24 22:00
Amitriptyline 25 Mg Tablet PO 05/26/24 21:59
HS JIGAR
Ascorbic Acid 1,000 mg 04/29/24 08:00
Ascorbic Acid 500 Mg Tablet PO 05/27/24 07:59
DAILY JIGAR
Calcium Carbonate 500 mg 04/29/24 08:00
Calcium Carbonate 500 Mg Tablet PO 05/27/24 07:59
DAILY JIGAR
Cholecalciferol 250 mcg 04/29/24 08:00
Cholecalciferol (Vitamin D3) 125 Mcg Tablet (5,000 Units) PO 05/27/24 07:59
DAILY JIGAR
Dexamethasone 4 mg 04/28/24 18:00 04/28/24 17:05
Dexamethasone 4 Mg Tablet PO 05/26/24 17:59 4 mg
Q6 JIGAR Administration
Duloxetine HCl 60 mg 04/29/24 12:00
Duloxetine Delayed Release 60 Mg Capsule PO 05/27/24 11:59
DAILY@1200 JIGAR
Heparin Sodium (Porcine) 500 unit 04/28/24 11:30 04/28/24 11:23
Heparin Flush Pf (100 Unit/Ml) 5 Ml Syringe IV 05/26/24 11:29 500 unit
PER PROTOCOL JIGAR Administration
Levetiracetam 500 mg 04/28/24 20:00
Levetiracetam 500 Mg Regular Release Tablet PO 05/26/24 19:59
BID JIGAR
Pt's Own (Memantine 5 ea 04/28/24 17:00
5-10 Mg Tablets,Dose PO 05/26/24 16:59
Pack) .TITRATION JIGAR
Pantoprazole Sodium 40 mg 04/29/24 08:00
Pantoprazole 40 Mg Delayed Release Tablet PO 05/27/24 07:59
DAILY JIGAR
Sennosides 8.6 mg 04/28/24 17:00
Sennosides (Senokot) 8.6 Mg Tablet PO 05/26/24 16:59
BIDPRN PRN
CONSTIPATION
Sodium Chloride 0 flush 04/28/24 18:00
Sodium Chloride 0.9% (Flush) Syringe IV 05/26/24 17:59
PER PROTOCOL JIGAR
Home Medications
�Medication �Instructions �Recorded
duloxetine 60 mg capsule,delayed 60 mg PO DAILY@1200 depression 03/26/23
release (Cymbalta)
acetaminophen 500 mg tablet 1,000 mg PO QIDPRN PRN mild pain 05/16/23
(Tylenol Extra Strength)
amitriptyline 25 mg tablet 25 mg PO HS 02/19/24
ascorbic acid (vitamin C) 500 mg 1,000 mg PO DAILY 04/08/24
tablet (Vitamin C)
calcium carbonate 500 mg PO DAILY 04/08/24
pantoprazole 40 mg tablet,delayed 40 mg PO DAILY #30 tabs 04/10/24
release (Protonix)
cholecalciferol (vitamin D3) 125 250 mcg PO DAILY 04/27/24
mcg (5,000 unit) tablet (Vitamin
D3)
dexamethasone 4 mg tablet 4 mg PO Q6 04/27/24
levetiracetam 500 mg tablet 500 mg PO BID #60 tabs 04/27/24
(Keppra)
memantine 5 mg-10 mg tablets in a 5 ea PO .TITRATION 04/27/24
dose pack
sennosides 8.6 mg tablet 8.6 mg PO BIDPRN PRN CONSTIPATION 04/27/24
[2024-04-28] MEDS: KEPPRA 500 MG PO (21:54)
[2024-04-28] MEDS: ELAVIL 25 MG PO (21:54)
[2024-04-28] MEDS: NAMENDA 5 MG PO (23:15)
--- NOTE | 2024-04-29 00:41 | W.PN.UPDATE ---
Update Note
Progress Note Update
PT recently placed on memanatine currently being titrated. This week on 5mg bid. Next week 5mg am 10mg pm. Family insisting she get this med. Med ordered. Then upon reading literature, some reports say this med can lower seizure threshold. Pt with
new seizures. Will hold med for now and seek neurology advice in am.
[2024-04-29 03:40] VITALS: BP 124/73
[2024-04-29 04:59] LABS: % Basophils 0.2 % (0-2); % Immature Granulocytes 4.1 % (0-0.5); % Lymphocytes 5.6 % (20.5-51.1); % Monocytes 5.9 % (1.7-9.3); % Neutrophils 84.2 % (42.2-75.2); Absolute Immature Granulocytes 0.3 10^3/uL (0-0.05); Absolute Lymphocytes 0.4 10^3/uL (1.2-3.4); Absolute Monocytes 0.4 10^3/uL (0.1-0.6); Absolute Neutrophils 5.3 10^3/uL (1.4-6.5); Hemoglobin 11.2 g/dL (12.0-16.0); Mean Corp Hgb Conc. 32.9 g/dL (33.0-37.0); Mean Corpuscular Hgb 28.7 pg (27.0-31.0); Mean Corpuscular Volume 87.2 fL (81.0-99.0); Mean Platelet Volume 9.6 fL (7.4-10.4); Nucleated Red Blood Cells % 0 %; Platelet Count 72 10^3/uL (130-400); White Blood Cell Count 6.3 10^3/uL (4.8-10.8)
[2024-04-29 05:12] LABS: ALT (SGPT) 16 U/L (0-35); AST (SGOT) 15 U/L (14-36); Albumin 3.2 g/dl (3.5-5.0); Alkaline Phosphatase 73 U/L (38-126); Blood Urea Nitrogen 19 mg/dl (7-17); Calcium 8.3 mg/dl (8.4-10.2); Carbon Dioxide 28 mmol/L (22-30); Chloride 99 mmol/L (98-107); Estimated Creatinine Clearance 108 ml/min; Glucose 126 mg/dl (70-99); Potassium 3.7 mmol/L (3.5-5.1); Sodium 132 mmol/L (135-145); Total Bilirubin 0.5 mg/dl (0.2-1.3); Total Protein 5.5 g/dl (6.3-8.2); eGFR > 60.00
[2024-04-29] MEDS: DECADRON 4 MG PO ×2 (05:51→12:35)
[2024-04-29] MEDS: PROTONIX 40 MG PO (05:52)
[2024-04-29 06:00] VITALS: BMI 27.8
[2024-04-29 08:24] VITALS: BP 123/77
[2024-04-29] MEDS: VITAMIN C 1000 MG PO (08:58)
[2024-04-29] MEDS: VITAMIN D3 (cholecalciferol) 250 MCG PO (08:58)
[2024-04-29] MEDS: OSCAL CAL 500 500 MG PO (08:59)
[2024-04-29] MEDS: KEPPRA 500 MG PO (08:59)
--- NOTE | 2024-04-29 09:36 | W.PN.NEPH.PH ---
Today's Communication / Plan
-
Stable for discharge from nephrology standpoint on fluid restrict
Assessment/Plan
-
54-year-old female past medical history of triple negative breast cancer with metastasis to bone, lung, chest, brain status post bilateral mastectomy/implants, metastatic pleural effusion status post thoracentesis, chronic anemia/thrombocytopenia
secondary chemotherapy, neuropathy, presenting after having a seizure at radiation oncology today. She is undergoing radiation of the brain brain metastases. Had a seizure yesterday radiation oncology. Reportedly her arm was shaking. She was
evaluated in the emergency room and had EEG and CT of the head. She was started on Keppra yesterday. Radiation oncologist noted the seizure occurred while being physician today the same as yesterday.
Impression.
Hyponatremia of 125.
Metastatic breast cancer undergoing chemotherapy and radiation
Seizure x 2.
Plan.
With new seizure I suggested to keep the patient observation for 24 hours with fluid restriction.
It is rare to get seizure with a sodium of 125.
Was given Samsca yesterday and sodium now 132
Maintain fluid restriction today, no further treatment
Urine sodium 70/urine osmolality 393�consistent with SIADH
Suspect seizure is more from her metastatic disease to the brain.
Expect should be able to be discharged eventually as discussed with the patient and her daughter previously to continue with fluid restriction going forward about 32 to 40 ounces and a high-protein diet..
-
-
Date of Service: April 29, 2024
CC / HPI / ROS
-
Chief Complaint:
Hyponatremia
History of Present Illness:
Hemodynamically stable
Sodium level up to 132 following Samsca administered
Received Keppra loading yesterday from neurology for seizure
Review of Systems:
Nonoliguric
No fevers
No reported chest pain or shortness of
Labs
-
Labs:
WBC 6.3 10^3/uL (4.8-10.8) 04/29/24 04:38
RBC 3.90 10^6/uL (4.20-5.40) L 04/29/24 04:38
Hgb 11.2 g/dL (12.0-16.0) L 04/29/24 04:38
Hct 34.0 % (37.0-47.0) L 04/29/24 04:38
Plt Count 72 10^3/uL (130-400) L D 04/29/24 04:38
Sodium 132 mmol/L (135-145) L 04/29/24 04:38
Potassium 3.7 mmol/L (3.5-5.1) 04/29/24 04:38
Chloride 99 mmol/L (98-107) 04/29/24 04:38
Carbon Dioxide 28 mmol/L (22-30) 04/29/24 04:38
BUN 19 mg/dl (7-17) H 04/29/24 04:38
Creatinine 0.4 mg/dL (0.6-1.0) L 04/29/24 04:38
eGFR > 60.00 04/29/24 04:38
Glucose 126 mg/dl (70-99) H 04/29/24 04:38
Calcium 8.3 mg/dl (8.4-10.2) L 04/29/24 04:38
Albumin 3.2 g/dl (3.5-5.0) L 04/29/24 04:38
Physical Exam
-
Vital Signs:
Vital Signs
Temp Pulse Resp BP Pulse Ox
98.2 F 92 16 123/77 97
04/29/24 08:24 04/29/24 08:24 04/29/24 08:24 04/29/24 08:24 04/29/24 08:24
Cardiovascular:: Regular rate and rhythm
Respiratory:: Bilateral: CTA
Lung Excursion:: Normal
Abdomen:: Nontender
Bowel Sounds:: Normal
Extremity Edema:: None: Bilateral:
Walker Catheter: No
--- NOTE | 2024-04-29 11:00 | W.PN.NEURO.1 ---
Today's Communication / Plan
-
D/c Namenda
Start Aricept 10 mg HS
Continue Keppra 1000 BID
ok to discharge
Neuro Assessment/Plan
Assessment
brain MRI imgs rev'd, multiple mets with vasogenic edema
EEG yesterday was normal
patient with second seizure
was not steady state on Keppra 500 BID
doubt any positional involvement to her seizure
Plan
patient placed supine 10 minutes without any seizure
no need to repeat studies
Keppra loaded in ED, continue 1000 BID
discussed with patient to come to ED if seizure >5 minutes, multiple sz without return to baseline, not back to normal within 1 hour, or if her seizure is different from the previous ones
otherwise, if she has the same seizure again, at most her Keppra could be increased to 1500 BID over the phone. She should keep a seizure diary to determine seizure frequency.
These seizures are not causing her any permanent brain damage; if she has another seizure at radiation tx, advise proceeding with the radiation after the patient recovers. The radiation and Decadron are probably doing her more good than the Keppra
is.
discussed memantine, yes it does slightly lower the seizure threshold but I do not see this as a big deal if she has 10 or 20% more seizures per year. I.E., there is no difference between 5 seizures per year and 6 seizures per year. however
memantine has only been shown effective in combination with acetylcholinesterase inhibitor; we decided to start Aricept 10; discussed side effects, if sleepy take at night; if insomnia take in morning; if dizzy or nausea take with food, and if still
having side effects cut the pill and take half.
Subjective/Objective
Subjective Data
Date of Service: April 29, 2024
admitted obs for low sodium
no further seizures
? regarding recently starting Namenda and it lowering the seizure threshold
Objective Data
Vital Signs
Temp Pulse Resp BP Pulse Ox
36.8 C 92 16 123/77 97
04/29/24 08:24 04/29/24 08:24 04/29/24 08:24 04/29/24 08:24 04/29/24 08:24
Lab Results
04/29/24 04:38
04/29/24 04:38
Sodium 132 mmol/L (135-145) L 04/29/24 04:38
Potassium 3.7 mmol/L (3.5-5.1) 04/29/24 04:38
BUN 19 mg/dl (7-17) H 04/29/24 04:38
Glucose 126 mg/dl (70-99) H 04/29/24 04:38
Calcium 8.3 mg/dl (8.4-10.2) L 04/29/24 04:38
Patient Allergies
cefazolin Allergy (Verified 04/28/24 15:16)
Rash
oxycodone [From Percocet] Allergy (Verified 04/28/24 15:16)
Nausea / Vomiting
vancomycin Allergy (Verified 04/28/24 15:16)
Sharon syndrome; itchy rash despite premed w/ Benadry
Physical Exam
-
AAOx3, speech clear
face symmetric
RUE full strength, LUE 2/5
b/l LE full strength
[2024-04-29 11:32] VITALS: BP 122/76
[2024-04-29] MEDS: CYMBALTA DELAYED RELEASE 60 MG PO (12:35)
--- NOTE | 2024-04-29 14:05 | W.PN.HOSP.TC ---
Addendum entered and electronically signed by Erasto Crum MD 04/29/24 22:43:
Attending Addendum:
I saw and evaluated the patient. I reviewed the resident�s note and agree with findings and plan as documented in the resident�s note. Sub: Seen with daughter present. No further seizure episodes wants to go home. Full 12 point ROS reviewed and
negative except as documented Exam: Vitals reviewed in chart GEN-NAD heart RRR lungs clear abd soft LE no edema Neuro LUE MS 03/22
PLAN:
# Seizures secondary to newly discovered brain metastases
# Brain metastasis undergoing brain radiation
-CT head shows no acute intracranial hemorrhage, no intracranial mass lesions not well-seen, surrounding edematous changes as seen on prior examination
-MRI brain from 04/08 shows extensive intracranial metastatic disease with largest lesion 1.5 x 1 cm superior right frontoparietal region with surrounding edema, additional 1.3 x 1.2 cm lesion in the inferior left frontal lobe with extensive edema,
1.2 to 1.1 cm enhancing lesion which opacifies the distal aspect of the cerebral aqueduct/superior fourth ventricle
-Keppra 2000 mg given in ED
-increase keppra to 1000mg PO BID
-Continue dexamethasone
-Neurology input appreciated
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
-Urine osmolality of 393 urine sodium of 70
-Sodium of 125->132 normally around 130
-s/p Samsca x 1
-cont FRR to 1500mls on DC
# Dementia
- dc namenda start aricept (lower seizure prevalence)
#History of triple negative breast cancer metastases to bone, lung, chest and brain
#History of bilateral mastectomy/implant
#Metastatic pleural effusion status post thoracentesis
#Chronic anemia/thrombocytopenia secondary to chemotherapy
-Stable
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
-Continue amitriptyline, duloxetine
Full code
DVT prophylaxis�SCDs
Regular diet
Dispo DC home
ACP
Patient consented to discuss, was with POA daughter, time spent explanation of advance directives, changes in health status, patient�s health care wishes if the patient becomes unable to make health decisions, goals of care, code status, and
prognosis would like to revisit code status as OP cont Full code for now- 16 minutes
Time spent coordinating care, DC planning, review of DC plan of care with resident, transition of care, review of records, med rec/scripts sent electronically, consults, notes, d/w consultants, nursing, family, and CM exclusive of ACP time� 31 mins
Original Note:
Today's Communication/Plan
-
Keppra 1000 mg twice daily
Aricept 10 mg at bedtime
BMP in 1 week
Follow-up with residency clinic within 1 week
Follow-up with outpatient neurology within a month
Assessment / Plan
Assessment / Plan
54 year old woman, triple negative breast cancer metastases to bone, lung, chest and brain, brain mets with vasogenic edema on Decadron 4 mg q6; radiation neuropathy affecting LUE;presented from radiation office after laying flat and had a seizure
lasting seconds, and quickly returned to baseline.
# Seizures secondary to newly discovered brain metastases
# Brain metastasis undergoing brain radiation
--CT head 04/27 shows no acute intracranial hemorrhage, no intracranial mass lesions not well-seen, surrounding edematous changes as seen on prior examination
--MRI brain from 04/08 shows extensive intracranial metastatic disease with largest lesion 1.5 x 1 cm superior right frontoparietal region with surrounding edema, additional 1.3 x 1.2 cm lesion in the inferior left frontal lobe with extensive edema,
1.2 to 1.1 cm enhancing lesion which opacifies the distal aspect of the cerebral aqueduct/superior fourth ventricle
--Seizure 2x consecutive days(04/27, 04/28)
--s/p Keppra 2000 mg bolus,
--continue 1000 twice daily
--Continue dexamethasone
--Follow-up with neurology outpatient
--PT/OT not covered by insurance due to current ongoing radiation management.
# Acute on chronic hyponatremia
--consistent with SIADH possibly contributed by brain metastasis
--Urine osmolality of 393 urine sodium of 70
--S/p 1 dose Samsca 7.5 mg
--Current sodium 132
--Fluid restriction to 48 ounce
#History of triple negative breast cancer metastases to bone, lung, chest and brain
#History of bilateral mastectomy/implant
#Metastatic pleural effusion status post thoracentesis
#Chronic anemia/thrombocytopenia secondary to chemotherapy
-Stable
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
-Continue amitriptyline, duloxetine
Full code
DVT prophylaxis�SCDs
Regular diet
Anticipated Discharge: Today
Subjective/Interval History
-
Date of Service: April 29, 2024
Offers no new complaints. Vitals stable.
Objective Data
-
Labs:
Laboratory Results
04/29/24
04:38
WBC 6.3
Hgb 11.2 L
Hct 34.0 L
Plt Count 72 L D
Sodium 132 L
Potassium 3.7
Chloride 99
Carbon Dioxide 28
BUN 19 H
Creatinine 0.4 L
Glucose 126 H
Calcium 8.3 L
Total Bilirubin 0.5
AST 15
ALT 16
Alkaline Phosphatase 73
Vital Signs:
Vital Signs
Temp Pulse Resp BP Pulse Ox
98.2 F 86 16 122/76 98
04/29/24 11:32 04/29/24 11:32 04/29/24 11:32 04/29/24 11:32 04/29/24 11:32
I&O
04/28/24 04/29/24 04/30/24
06:59 06:59 06:59
Intake Total 240 / 240
Balance 240 / 240
Review of Systems
-
History Source: Patient and Family (Daughter)
Constitutional: Reports No Symptoms
EENT: Reports No Symptoms Reported
Respiratory: Reports No Symptoms
Cardiac: Reports No Symptoms
Genitourinary: Reports No Symptoms
Skin: Reports No Symptoms
Physical Exam
-
General: Well Developed and No Apparent Distress
HEENT: Normocephalic, Atraumatic and Moist Mucous Membranes
Respiratory: Clear to Auscultation
Cardiac: Regular Rhythm and S1/S2; Negative Murmur, Rub or Gallop
GI: Soft, Nontender, Nondistended and Normal Bowel Sounds
Musculoskeletal: No Clubbing, No Cyanosis and No Edema
Skin: Negative Rash
Neuro: Awake, Alert, Oriented and Other (Chronic left upper extremity weakness )
Psych: Calm
Data Reviewed
-
CT Scan: Report Reviewed by me
Labs: Labs Reviewed by me, Discussed with Physician and Discussed with Patient
--- NOTE | 2024-04-29 15:29 | VNURNOTE ---
Home Health Liaison spoke with patient's daughter Kadie to discuss [facility] nurse/therapy, visits, schedule and homebound status. She is agreeable and understands that visits at home will be 2-3 x per week to assess and teach medical management.
Provided daughter with [facility] contact information. She stated that patient is scheduled to finish radiation at [facility] and requesting start of care over the weekend. Request noted on referral. Daughter aware that [facility] will contact them
prior to start of care visit. [facility] referral completed in [facility].
--- NOTE | 2024-04-29 15:37 | CM ---
plant floor automation manager reviewed patient's chart and met with patient and daughter at bedside, patient lives with spouse and son in a one story home, with 3 steps to enter, patient requires assist with transfer to w/c, plan is to home today, physician has
ordered visiting nurses, options reviewed with patent and she has selected [facility].
Plan; Home with [facility]
--- NOTE | 2024-04-29 17:12 | W.DCSUMMARY ---
Addendum entered and electronically signed by Erasto Crum MD 04/29/24 22:45:
Read, reviewed, and agree. See same day progress note for additional details. Patient to follow up at residency clinic at patient and POA request. PCP Dr. Oneal.
Rene Crum MD
Original Note:
Documented by User: Jesús Oneal MD, Resident 04/29/24 17:29
Discharge Summary
Discharge Data
Date of Admission: 04/28/24
Date of Discharge: 04/29/24
-
Pending Results: No
Hospital Course
Discharging Physician : Jesús Oneal MD ; Erasto Duff MD
Disposition : Home
Primary care physician : Marcus Campa
Principal Discharge diagnosis : Seizures secondary to newly discovered brain metastases
Chronic Discharge diagnosis : Brain metastasis undergoing brain radiation, chronic hyponatremia consistent with SIADH possibly contributed by brain metastasis, history of triple negative breast cancer mets to bone, lungs, chest and brain fog,
history of bilateral mastectomy, metastatic pleural effusion s/p thoracentesis, chronic anemia, chronic neuropathy
Hospital Course : 54-year-old female past medical history of triple negative breast cancer with metastasis to bone, lung, chest, brain status post bilateral mastectomy/implants, metastatic pleural effusion status post thoracentesis, chronic
anemia/thrombocytopenia secondary chemotherapy, neuropathy, presented after having a seizure at radiation oncology on 04/28. She is undergoing radiation of the brain brain metastases. Had a seizure on 04/27/24 as well at radiation oncology.
Reportedly her arm was shaking. She was evaluated in the emergency room and had EEG and CT of the head on 04/27. She was started on Keppra 500mg bid and sent home. Patient has focal left arm weakness from prior radiation which is not new. She was
recently discovered to have brain metastases a few weeks ago after a fall and ongoing headaches and imaging of the brain showed brain metastases. Followed by oncologist is Dr. Marx. She was given a loading dose of Keppra to 2grams. During
workup in the hospital she was found to have hyponatremia with sodium of 125 nephrology was consulted and recommended it is rare to get seizure with a sodium of 125 and there was more suspicion to metastatic disease as a cause of her seizure. She
was given 1 dose of 7.5 mg Samsca which eventually increased her sodium to 132 on day of discharge. There was no indication of hypertonic fluids. Neurology was also consulted and they recommended no need to repeat EEG. There was no positional
involvement to her seizure during neurological exam in the hospital. Her dose of Keppra was increased to 1000 mg twice daily per neuro recommendations. There was a discussion regarding recently starting Namenda which can lower the seizure
threshold therefore decision was made to discontinue Namenda and start Aricept and she was provided with a prescription upon discharge. She was medically stable at the time of discharge. She was given instructions to follow-up with PCP within 1
week in addition to neurology and oncology for further recommendations.
Important imaging findings : CT Head W/o Iv Contrast:
No acute intracranial hemorrhage. Known intracranial mass lesions are not well seen at noncontrast CT. There are surrounding edematous changes as seen on previous examination
Discharge Plan
-
Patient Disposition: Home (Routine Discharge)
Discharge Diagnosis/Procedures: Seizures secondary to newly discovered brain metastases, Brain metastasis undergoing brain radiation, chronic hyponatremia consistent with SIADH possibly contributed by brain metastasis, history of triple negative
breast cancer mets to bone, lungs, chest and brain fog, history of bilateral mastectomy, metastatic pleural effusion s/p thoracentesis, chronic anemia, chronic neuropathy
Condition: Fair
Diet: Restrict fluids to 48 oz
Activity: As tolerated
Driving Restrictions: No driving
Bathing Restrictions: None
Other Services: VN, PT and OT
Referrals:
Marcial Maria MD [Active] - in two to three weeks
NONE,* [Family Provider] -
Additional Discharge Medication Instructions: Take donepezil 10 mg tablet by mouth at bedtime daily
Take levetiracetam 500 mg 2 tablet by mouth twice daily
Discontinue memantine
Patient was provided with information for outpatient residency clinic and plans to follow-up within a week for continuation and further management.
Follow-up with outpatient neurology.
BMP in 1 week
Prescriptions:
New
donepezil 10 mg Tablet
10 mg PO HS Qty: 30 0RF
levetiracetam 500 mg Tablet
1,000 mg PO BID Qty: 120 0RF
Continued
duloxetine [Cymbalta] 60 mg Capsule,Delayed Release(Dr/Ec)
60 mg PO DAILY@1200
acetaminophen [Tylenol Extra Strength] 500 mg Tablet
1,000 mg PO QIDPRN PRN (Reason: mild pain)
amitriptyline 25 mg Tablet
25 mg PO HS
calcium carbonate 500 mg calcium (1,250 mg) Tablet
500 mg PO DAILY
ascorbic acid (vitamin C) [Vitamin C] 500 mg Tablet
1,000 mg PO DAILY
pantoprazole [Protonix] 40 mg tablet,delayed release (DR/EC)
40 mg PO DAILY Qty: 30 1RF
sennosides 8.6 mg Tablet
8.6 mg PO BIDPRN PRN (Reason: CONSTIPATION)
dexamethasone 4 mg tablet
4 mg PO Q6
cholecalciferol (vitamin D3) [Vitamin D3] 125 mcg (5,000 unit) Tablet
250 mcg PO DAILY
Discontinued
memantine 5-10 mg tablets,dose pack
5 ea PO .TITRATION
levetiracetam [Keppra] 500 mg tablet
500 mg PO BID Qty: 60 0RF
Discharge Orders:
Discharge Patient (As Directed); Ordered 04/29/24
Ordered By: Jesús Oneal
Discharge Date and Time
Discharge Date/Time: 04/29/24 16:32
Print Language: BANGLADESHI

Documented by User: Erasto Crum MD 04/29/24 22:35
Discharge Summary
Discharge Data
Date of Admission: 04/28/24
Date of Discharge: 04/29/24
Discharge Plan
-
Patient Disposition: Home (Routine Discharge)
Discharge Diagnosis/Procedures: Seizures secondary to newly discovered brain metastases, Brain metastasis undergoing brain radiation, chronic hyponatremia consistent with SIADH possibly contributed by brain metastasis, history of triple negative
breast cancer mets to bone, lungs, chest and brain fog, history of bilateral mastectomy, metastatic pleural effusion s/p thoracentesis, chronic anemia, chronic neuropathy
Condition: Fair
Diet: Restrict fluids to 48 oz
Activity: As tolerated
Driving Restrictions: No driving
Bathing Restrictions: None
Other Services: VN, PT and OT
Referrals:
Marcial Maria MD [Active] - in two to three weeks
NONE,* [Family Provider] -
Additional Discharge Medication Instructions: Take donepezil 10 mg tablet by mouth at bedtime daily
Take levetiracetam 500 mg 2 tablet by mouth twice daily
Discontinue memantine
Patient was provided with information for outpatient residency clinic and plans to follow-up within a week for continuation and further management.
Follow-up with outpatient neurology.
BMP in 1 week
Prescriptions:
New
donepezil 10 mg Tablet
10 mg PO HS Qty: 30 0RF
levetiracetam 500 mg Tablet
1,000 mg PO BID Qty: 120 0RF
Continued
duloxetine [Cymbalta] 60 mg Capsule,Delayed Release(Dr/Ec)
60 mg PO DAILY@1200
acetaminophen [Tylenol Extra Strength] 500 mg Tablet
1,000 mg PO QIDPRN PRN (Reason: mild pain)
amitriptyline 25 mg Tablet
25 mg PO HS
calcium carbonate 500 mg calcium (1,250 mg) Tablet
500 mg PO DAILY
ascorbic acid (vitamin C) [Vitamin C] 500 mg Tablet
1,000 mg PO DAILY
pantoprazole [Protonix] 40 mg tablet,delayed release (DR/EC)
40 mg PO DAILY Qty: 30 1RF
sennosides 8.6 mg Tablet
8.6 mg PO BIDPRN PRN (Reason: CONSTIPATION)
dexamethasone 4 mg tablet
4 mg PO Q6
cholecalciferol (vitamin D3) [Vitamin D3] 125 mcg (5,000 unit) Tablet
250 mcg PO DAILY
Discontinued
memantine 5-10 mg tablets,dose pack
5 ea PO .TITRATION
levetiracetam [Keppra] 500 mg tablet
500 mg PO BID Qty: 60 0RF
Discharge Orders:
Discharge Patient (As Directed); Ordered 04/29/24
Ordered By: Jesús Oneal
Discharge Date and Time
Discharge Date/Time: 04/29/24 16:32
Print Language: BANGLADESHI
== END 2024-04-29 16:32 | disposition home health service (06) | DRG 55 ==
LOC: 3 WEST ACU 16:03
PROVIDERS: ADMITTING PHYSICIAN Hospitalist; ATTENDING PHYSICIAN Family Medicine; CONSULT PHYSICIAN Psychiatry & Neurology Clinical Neurophysiology; EMERGENCY PHYSICIAN Emergency Medicine; OTHER PHYSICIAN Internal Medicine Nephrology
DX: C79.31 Secondary malignant neoplasm of brain (principal); E22.2 Syndrome of inappropriate secretion of antidiuretic hormone; C78.00 Secondary malignant neoplasm of unspecified lung; C79.51 Secondary malignant neoplasm of bone; R56.9 Unspecified convulsions; C50.919 Malignant neoplasm of unspecified site of unspecified female breast; D64.81 Anemia due to antineoplastic chemotherapy; G62.0 Drug-induced polyneuropathy; Z90.13 Acquired absence of bilateral breasts and nipples; T45.1X5A Adverse effect of antineoplastic and immunosuppressive drugs, initial encounter; D69.59 Other secondary thrombocytopenia; Z92.3 Personal history of irradiation; Z87.891 Personal history of nicotine dependence; Z88.1 Allergy status to other antibiotic agents; F32.A Depression, unspecified; Z79.899 Other long term (current) drug therapy; K59.00 Constipation, unspecified; Z17.421 Hormone receptor negative with human epidermal growth factor receptor 2 negative status; Z86.16 Personal history of COVID-19
CPT/HCPCS: 80048; 80053; 83935; 84300; 85025; 96374; 96375; 99285